=== PATIENT | male | born 1940 | race Caucasian/White ===

== ENCOUNTER → 2016-10-20 | Outpatient (CLI) | payer BC ==
[~2016-10-20] MED LIST: ASPEC81 PO; ASPI81TA28 PO; CLOP1TAB15 PO; COEN200T PO; CRS/10 PO; ISOS30TA3 PO; LPT40 PO; MULT-513 PO; OMEG10007 PO; PLV75 PO
[2016-10-20 14:26] LABS: ESTIMATED AVERAGE GLUCOSE 126 mg/dl; HA1C FLAG Normal (Normal)
[2016-10-20 14:32] LABS: ALT/SGPT 35 U/L (12-78); AST/SGOT 30 U/L (15-37); BLOOD UREA NITROGEN 37 mg/dl (7-18); BUN/CREATININE RATIO 33.4 (10-20); CARBON DIOXIDE 25 mmol/L (21-32); CHLORIDE 107 mmol/L (98-107); CHOLESTEROL 220 mg/dl (0-200); GLUCOSE 83 mg/dl (70-99); POTASSIUM 3.8 mmol/L (3.5-5.1); SODIUM 142 mmol/L (136-145); TRIGLYCERIDES 103 mg/dl (0-150); VERY LOW DENSITY LIPOPROT CALC 21 mg/dl
[2016-10-20 14:37] LABS: ALB/GLOB RATIO 1.3 (0.9-2); ALKALINE PHOSPHATASE 63 U/L (45-117); CHOLESTEROL/HDL RATIO 3.3; HDL CHOLESTEROL 66 mg/dl; LDL CHOLESTEROL CALCULATED 133 mg/dl; PROSTATE SPECIFIC ANTIGEN < 0.010 ng/ml (0.000-4.000)
== END | disposition home or self-care (01) ==
LOC: C.LABBC 09:46
PROVIDERS: ATTEND Internal Medicine
DX: Z00.00 Encounter for general adult medical examination without abnormal findings (principal); E78.5 Hyperlipidemia, unspecified; I25.10 Atherosclerotic heart disease of native coronary artery without angina pectoris; R94.5 Abnormal results of liver function studies; Z85.46 Personal history of malignant neoplasm of prostate; R73.09 Other abnormal glucose

== ENCOUNTER → 2016-12-07 | Outpatient (CLI) | payer BC ==
[2016-12-07 13:18] LABS: ALT/SGPT 33 U/L (12-78); AST/SGOT 28 U/L (15-37)
== END | disposition home or self-care (01) ==
LOC: C.LABBC 11:43
PROVIDERS: ATTEND Internal Medicine Cardiovascular Disease
DX: R94.5 Abnormal results of liver function studies (principal)

== ENCOUNTER → 2017-02-15 | Day surgery (SDC) | payer BC ==
[2017-01-13 13:19] VITALS: Ht 175.3 cm; Wt 75.9 kg
[~2017-02-15] VITALS: Ht 175.3 cm; Wt 75.9 kg
[~2017-02-15] MED LIST changes: -ASPEC81 PO; -ISOS30TA3 PO; +LIDOCAINE HCL 2% 2 ML VIAL (20MG/ML) ONE; -LPT40 PO; +MIDAZOLAM HCL 1 MG/ML 2ML VIAL ONE; +ONDANSETRON INJ 2 MG/ML 2 ML VIAL ONE; -PLV75 PO; +PROPOFOL IV EMULSION 10 MG/ML 20 ML VIAL IV ONE; +SODIUM CHLORIDE 0.9% 500ML 500 ML IV ONE
[2017-02-15 09:38] VITALS: TEMP 36.4
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
--- NOTE | 2017-02-15 10:28 | Discharge Instructions ---
Endoscopy Patient Instructions Date / Procedure(s) Performed February 15, 2017. Colonoscopy Allergy Information Coded Allergies: No Known Allergies (Verified , 02/15/17) Discharge Date / Findings February 15, 2017. Colon polyp Diverticulosis Internal hemorrhoids Medication Instructions Stopped Medication(s): PLAVIX LAST WEEK 02/08/17 ASPIRIN 02/13/17 OK to resume all medications today as prescribed Reported Home Medications Medications Dose Route/Sig Max Daily Dose Days Date Category Aspirin Ec (Aspirin) 81 Mg Tab 81 Mg PO NOON 01/13/17 Reported Coenzyme Q10 (Coenzyme Q10 (Ubidecarenone)) 200 Mg Tab 1 Tab PO NOON 01/13/17 Reported Crestor (Rosuvastatin Calcium) 10 Mg Tab 10 Mg PO HS 01/13/17 Reported Plavix (Clopidogrel Bisulfate) 75 Mg Tab 75 Mg PO NOON 01/13/17 Reported Mvi With Minerals (Multivitamins/Minerals) Tab 1 Tab PO NOON 03/01/15 Reported [place]-3 (Fish Oil) 1 Ea Cap 1 Cap PO NOON 03/01/15 Reported Provider Instructions Activity Restrictions - No exercising or heavy lifting for 24 hours. - Do not drink alcohol the day of the procedure. - Do not drive a car or operate machinery until the day after the procedure. - Do not make any important decisions or sign important papers in 24 hours after the procedure. Following Day: - Return to full activity which may include returning to work/school. Diet Start your diet with liquids and light foods (jello, soup, juice, toast). Then eat your usual diet if not nauseated. Treatment For Common After Affects For mild abdominal pain, bloating, or excessive gas: - Rest - Eat lightly - Lie on right side Follow-Up Information Follow-up with DR. BARBOZA as scheduled Anesthesia Information What You Should Know You have had a procedure that required some medicine to reduce anxiety and discomfort. This treatment is called moderate sedation. After receiving the treatment, you may be sleepy, but you will be able to breathe on your own. The effects of the treatment may last for several hours. Follow these instructions along with Activity/Diet recommendations noted above: * Do NOT do anything where dizziness or clumsiness would be dangerous. * Rest quietly at home today, then you can be up and about tomorrow. * Have a responsible person stay with you the rest of today. * You may have had an I.V. today. If so, you may take the dressing off later today. Recommendations Call your doctor if: * Trouble breathing * Continuous vomiting for more than 24 hours * Temperature above 101 degrees * Severe abdominal pain or bloating * Pain not relieved by pain medicine ordered * There is increased drainage or redness from any incision * A large amount of rectal bleeding greater than 2-3 tablespoons. (If you had a polyp/s removed or have hemorrhoids, a small amount of blood - from the rectum is to be expected.) * You have any unanswered questions or concerns. IN THE EVENT OF A SERIOUS EMERGENCY, GO TO THE NEAREST EMERGENCY ROOM Your discharge instructions were prepared by provider Sai Solitario. Patient Instructions Signature Page Kirk Magana Patient (or Guardian) Signature/Date: I have read and understand the instructions given to me by my caregivers. Caregiver/RN/Doctor Signature/Date: The above-named patient and/or guardian has received patient instructions on this date. + Original Patient Signature Page (only) stays with chart. Please make copy for patient.
--- NOTE | 2017-02-15 10:34 | GI REPORT ---
Procedure Date: 02/15/2017 9:49 AM Procedure: Colonoscopy Indications: High risk colon cancer surveillance: Personal history of colonic polyps Medicines: Monitored Anesthesia Care Complications: No immediate complications. Estimated Blood Loss: Estimated blood loss: none. Procedure: Pre-Anesthesia Assessment: - Prior to the procedure, a History and Physical was performed, and patient medications and allergies were reviewed. The patient's tolerance of previous anesthesia was also reviewed. The risks and benefits of the procedure and the sedation options and risks were discussed with the patient. All questions were answered, and informed consent was obtained. Prior Anticoagulants: The patient last took aspirin 2 days and Plavix (clopidogrel) 7 days prior to the procedure. ASA Grade Assessment: III - A patient with severe systemic disease. After reviewing the risks and benefits, the patient was deemed in satisfactory condition to undergo the procedure. After I obtained informed consent, the scope was passed under direct vision. Throughout the procedure, the patient's blood pressure, pulse, and oxygen saturations were monitored continuously. The scope was introduced through the anus and advanced to the terminal ileum. The colonoscopy was performed without difficulty. The patient tolerated the procedure well. The quality of the bowel preparation was good. The terminal ileum, ileocecal valve, appendiceal orifice, and rectum were photographed. Findings: A 4 mm polyp was found in the ascending colon. The polyp was sessile. The polyp was removed with a hot snare. Resection was complete, but the polyp tissue was not retrieved. Multiple small-mouthed diverticula were found in the sigmoid colon. Non-bleeding internal hemorrhoids were found during retroflexion. The hemorrhoids were small. Impression: - One 4 mm polyp in the ascending colon, removed with a hot snare. Complete resection. Polyp tissue not retrieved. - Diverticulosis in the sigmoid colon. - Non-bleeding internal hemorrhoids. Recommendation: - Resume previous diet. - Continue present medications. - No repeat colonoscopy due to age. - Return to primary care physician as previously scheduled. Sai Solitario DO 02/15/2017 10:33:25 AM This report has been signed electronically. Note Initiated On: 02/15/2017 9:49 AM I attest to the content of the Intraoperative Record and orders documented therein, exceptions below
--- NOTE | 2017-02-15 10:43 | Anesthesiology Progress Note ---
Anesthesia Post Op Note Date & Time February 15, 2017 at 10:42 Vital Signs Pain Intensity: 0 Vital Signs Past 12 Hours Date Time Temp Pulse Resp B/P Pulse Ox O2 Delivery O2 Flow Rate FiO2 02/15/17 10:32 56 18 97/48 95 Room Air 02/15/17 09:38 36.4 64 18 126/68 97 Room Air Notes Mental Status: alert / awake / arousable, participated in evaluation Pt Amnestic to Procedure: Yes Nausea / Vomiting: adequately controlled Pain: adequately controlled Airway Patency, RR, SpO2: stable & adequate BP & HR: stable & adequate Hydration State: stable & adequate Anesthetic Complications: no major complications apparent
[2017-02-15 11:02] VITALS: BP 104/63; PULSE 56; O2SAT 97
== END | disposition home or self-care (01) ==
LOC: C.GI 09:21
PROVIDERS: ATTEND Internal Medicine
DX: Z12.11 Encounter for screening for malignant neoplasm of colon (principal); Z86.010 Personal history of colon polyps; D12.2 Benign neoplasm of ascending colon; K64.8 Other hemorrhoids; K57.30 Diverticulosis of large intestine without perforation or abscess without bleeding; I25.2 Old myocardial infarction; I10 Essential (primary) hypertension; Z68.24 Body mass index [BMI] 24.0-24.9, adult; Z90.89 Acquired absence of other organs; I48.91 Unspecified atrial fibrillation; Z87.891 Personal history of nicotine dependence; Z79.02 Long term (current) use of antithrombotics/antiplatelets; Z79.899 Other long term (current) drug therapy

== ENCOUNTER → 2017-04-20 | Outpatient (CLI) | payer BC ==
[~2017-04-20] MED LIST changes: -LIDOCAINE HCL 2% 2 ML VIAL (20MG/ML) ONE; -MIDAZOLAM HCL 1 MG/ML 2ML VIAL ONE; -ONDANSETRON INJ 2 MG/ML 2 ML VIAL ONE; -PROPOFOL IV EMULSION 10 MG/ML 20 ML VIAL IV ONE; -SODIUM CHLORIDE 0.9% 500ML 500 ML IV ONE
[2017-04-20 11:15] LABS: ALT/SGPT 31 U/L (12-78); AST/SGOT 27 U/L (15-37); BLOOD UREA NITROGEN 33 mg/dl (7-18); BUN/CREATININE RATIO 30.2 (10-20); CALCIUM 8.7 mg/dl (8.5-10.1); CARBON DIOXIDE 26 mmol/L (21-32); CHLORIDE 110 mmol/L (98-107); CHOLESTEROL 146 mg/dl (0-200); GLUCOSE 90 mg/dl (70-99); POTASSIUM 4.3 mmol/L (3.5-5.1); SODIUM 139 mmol/L (136-145); TRIGLYCERIDES 75 mg/dl (0-150); VERY LOW DENSITY LIPOPROT CALC 15 mg/dl
[2017-04-20 11:18] LABS: CHOLESTEROL/HDL RATIO 2.4; HDL CHOLESTEROL 61 mg/dl; LDL CHOLESTEROL CALCULATED 70 mg/dl
[2017-04-20 11:21] LABS: ESTIMATED AVERAGE GLUCOSE 131 mg/dl; HA1C FLAG Normal (Normal)
== END | disposition home or self-care (01) ==
LOC: C.LABBC 09:10
PROVIDERS: ATTEND Internal Medicine
DX: E78.5 Hyperlipidemia, unspecified (principal); R94.5 Abnormal results of liver function studies; R73.03 Prediabetes

== ENCOUNTER 2017-10-27 18:41 | Emergency (ER) | payer BC ==
[~2017-10-27] VITALS: Ht 175.3 cm; Wt 78.9 kg
[2017-10-27 19:05] VITALS: TEMP 36.7; Ht 175.3 cm; Wt 78.9 kg
[2017-10-27] MEDS ORDERED: OXYMETAZOLINE HCL 0.05% NA SPR 15 ML BTL ONE (19:35)
--- NOTE | 2017-10-27 20:15 | EMERGENCY ROOM VISIT NOTE ---
ED Visit Note First contact with patient: 19:11 I have seen and examined this patient with Sharif Houser and generally agree with the treatment plan as discussed. Problem List Medical Problems: (1) Hx of left foot surgery Status: Resolved (2) Prostate cancer Status: Chronic Current/Historical Medications Scheduled Aspirin (Aspirin Ec), 81 MG PO NOON Clopidogrel (Plavix), 75 MG PO NOON Coenzyme Q10 (Ubidecarenone) (Coenzyme Q10), 200 MG PO NOON Fish Oil ([place]-3), 1 CAP PO NOON Multivitamins/Minerals (Mvi With Minerals), 1 TAB PO NOON Rosuvastatin Calcium (Crestor), 10 MG PO HS Allergies Coded Allergies: No Known Allergies (Verified , 10/27/17) Vital Signs Date Time Temp Pulse Resp B/P (MAP) Pulse Ox O2 Delivery O2 Flow Rate FiO2 10/27/17 19:05 36.7 71 18 115/67 97 Room Air Laboratory Results Test 10/27/17 19:23 Bedside Prothrombin Time INR 1.1 (0.9-1.1) Medications Administered Medications (Trade) Dose Ordered Sig/Lee Route Start Time Stop Time Status Last Admin Dose Admin Oxymetazoline HCl (Afrin 0.05% Nasal [place]) 75 sprays STK-MED ONCE .ROUTE 10/27/17 19:35 10/27/17 19:36 DC 10/27/17 19:38 75 SPRAYS Departure Information Referrals Pro,Darrel Uriostegui M.D. (PCP) Patient Instructions [facility]
[2017-10-27] MEDS ORDERED: AMOX875T3 PO (20:19)
[2017-10-27] MEDS ORDERED: AMOXICIL/CLAVU 875MG HOME PACK PO ONE (20:30)
[2017-10-27 20:55] VITALS: BP 111/79; PULSE 61; O2SAT 95
--- NOTE | 2017-10-28 21:04 | EMERGENCY ROOM VISIT NOTE ---
ED Visit Note First contact with patient: 19:11 Chief Complaint: Nose bleeding. History of Present Illness: Mr. Magana is a 77-year-old white male who ambulates into the ED accompanied by his complaining of bleeding from the left nostril. Historically patient reports he is currently on Plavix for the last 4-5 years and has had no complications of bleeding. Patient reports approximately 12:00 today he reports he was picking his nose and it started to bleed. He reports he had a direct pressure and within 10-15 minutes the bleeding stopped. Then at approximately 2:30 PM, approximately 5 hours before he arrived in the ED, he reports he was blowing his nose and lunch and the bleeding started from the left nostril again. Since that time he reports the bleeding has been steady and constant. He has not identified any aggravating or alleviating factors related to the bleeding. He reports he has tried compression and packing the nostril with tissue paper but has been unsuccessful. He denies facial pain, sinus pressure, recent upper respiratory tract symptoms, changes in medication, visual changes, other abnormal or ongoing bleeding. Review of Systems: As noted above in history of present illness. Past Medical History: Atrial fibrillation, dyslipidemia, coronary artery disease , congestive heart failure, myocardial infarction, prostrate cancer, status post angioplasty with stent placement. Current Medications: Plavix, aspirin, co-enzyme Q10, Crestor, omega-3 fatty acid , multivitamins. Allergies to Medications: Patient denies. Social History: Patient is currently retired; he feels safe in his home environment; he denies tobacco use and admits to alcohol use. Physical Examination: Vital Signs: Date Time Temp Pulse Resp B/P (MAP) Pulse Ox O2 Delivery O2 Flow Rate FiO2 10/27/17 20:55 61 18 111/79 95 10/27/17 19:05 36.7 71 18 115/67 97 Room Air GENERAL: 77-year-old male in no acute distress, nontoxic-appearing, afebrile and hemodynamically stable. NEUROLOGICAL: Awake, alert and oriented to person, place and time. Answering questions appropriately and following commands. Normal gait. Good hand eye coordination. SKIN: Warm, dry and pink. No soft tissue eruptions or trauma noted. HEENT: Atraumatic and normocephalic. PERRLA. Sclera white and conjunctiva pink. Nose: No tenderness, bony deformity or swelling. Active bleeding from the left nostril; site was not able to be identified. Bleeding from the right nostril although there is a small amount of blood in the nasal vault. Pharynx is nonerythematous or edematous. Small amount of blood in the posterior pharyngeal area. I do not see any active bleeding. Speech normal. No lymphadenopathy. ED Course: Patient is assessed as noted above. Patient's medication list was reviewed. Point of care PT/INR PT 13.0 seconds, INR 1.1. Initially patient's nose was clamped for approximately 15-20 minutes on reevaluation there was no active bleeding but when he blew his nose the bleeding returned. 2 squirts of Afrin were placed in the left nostril and the nostrils were read clamped. After 15-20 minutes he was reassessed and no active bleeding was found but when he blew his nose bleeding returned. A balloon-type Rhino Rocket was placed in the left nostril and inflated to 4 mL of air. He was reassessed multiple times and bleeding was controlled. Patient's case was reviewed with Dr. Cortes; independently assessed the patient we agreed on diagnostic approach, treatment, disposition and plan. Patient and are educated about today's findings and instructed on his treatment plan; they verbalized understanding and agreement with this plan. Clinical Impression: Left-sided epistaxis. Disposition: Patient discharged home in stable condition accompanied by his ; prior to departure he was reassessed and subjectively reported he was feeling better and remained pain and symptom-free. Plan: Continue your current medications as prescribed. Use 650 mg of acetaminophen every 6 hours as needed for pain; avoid ibuprofen and Aleve. Use 875 mg of amoxicillin 3 times a day for 5 days for antibiotic coverage. Follow-up with your family physician on Wednesday for recheck and packing removal and also possible referral to ENT specialist. Return to the ED for return of bleeding, fevers, uncontrolled pain or any new/ concerning symptoms. If after the packing is removed you have return of bleeding at any time put the nasal clamp on your nose for 15 minutes. Removed the clamp and blow your nose. If you have return of bleeding put 2 squirts of Afrin up the involved nostril and re-clamp for 15 minutes. After 15 minutes if you continue to have bleeding then come to the emergency department for further evaluation.
== END 2017-10-27 20:51 | disposition home or self-care (01) ==
LOC: C.EDB 18:43 → C.EDD 20:51
DX: R04.0 Epistaxis (principal); Z79.02 Long term (current) use of antithrombotics/antiplatelets; Z79.899 Other long term (current) drug therapy; I25.2 Old myocardial infarction; I48.91 Unspecified atrial fibrillation

== ENCOUNTER → 2017-11-04 | Outpatient (CLI) | payer BC ==
[2017-11-04 13:56] LABS: HEMOGLOBIN A1C 6.3 % (4.5-5.6)
[2017-11-04 14:03] LABS: ALT/SGPT 27 U/L (12-78); AST/SGOT 26 U/L (15-37); BLOOD UREA NITROGEN 29 mg/dl (7-18); CALCIUM 8.6 mg/dl (8.5-10.1); CARBON DIOXIDE 23 mmol/L (21-32); CHOLESTEROL 136 mg/dl (0-200); CREATININE 1.07 mg/dl (0.60-1.40); GLUCOSE 95 mg/dl (70-99); POTASSIUM 4.1 mmol/L (3.5-5.1); SODIUM 138 mmol/L (136-145)
[2017-11-04 14:08] LABS: LDL CHOLESTEROL CALCULATED 64 mg/dl
== END | disposition home or self-care (01) ==
LOC: C.LABBC 09:43
PROVIDERS: ATTEND Internal Medicine
DX: I25.10 Atherosclerotic heart disease of native coronary artery without angina pectoris (principal); I10 Essential (primary) hypertension; R73.03 Prediabetes; Z85.46 Personal history of malignant neoplasm of prostate

== ENCOUNTER → 2017-12-28 | Day surgery (SDC) | payer BC ==
[2017-12-01 13:09] VITALS: Ht 174 cm; Wt 75.9 kg
[~2017-12-28] VITALS: Ht 174 cm; Wt 75.9 kg
[~2017-12-28] MED LIST changes: +500ML BSS 0.3ML EPI 1:1000PF IRRIG ONE; +ACETAMINOPHEN 325 MG TAB PO PRN; +AMVISC PLUS 0.8ML SYRINGE INT OCU ONE; +ATROPINE SULFATE 0.1 MG/ML 5ML SYR IV PRN; +BSS FLUSH ONE; +EpHEDrine SULFATE INJ 50 MG/ML AMP IV PRN; +EpINEphrine INJ 1MG/ML AMP 1 MG/ML AMP ONE; +FENTANYL CITRATE INJ 50 MCG/1 ML 2 ML VIAL IV PRN; +GATIFLOXACIN OP SOLN PER DROP CHARGE OPL SCH; +LACTATED RINGER'S 1000ML 500 ML IV SCH; +LIDOCAINE 3.5% OPH GEL PER APPLICATION CHARGE ONE; +LIDOCAINE HCL 1% MPF 2 ML VIAL ONE; +MIDAZOLAM HCL 1 MG/ML 2ML VIAL ONE; +OCUCOAT 1 ML SOLN IO ONE; -OMEG10007 PO; +ONDANSETRON INJ 2 MG/ML 2 ML VIAL IV PRN; +POVIDONE-IODINE OP SOLN 30 ML BTL ONE; +PROPARACAINE 0.5% OP SOLN PER DROP CHARGE OPL SCH; +TOBRAMYCIN/DEXAMETHASONE OPH OINT PER APPLN CHARGE ONE
[2017-12-28] MEDS: PHENYLEPHRINE HCL 2.5% OP SOLN PER DROP CHARGE OPL SCH ×2 (09:30→09:35)
[2017-12-28] MEDS: TROPICAMIDE 1% OP SOLN PER DROP CHARGE OPL SCH ×2 (09:31→09:36)
[2017-12-28] MEDS: CYCLOPENTOLATE HCL 1% OP SOLN PER DROP CHARGE OPL SCH ×2 (09:32→09:37)
[2017-12-28] MEDS: KETOROLAC 0.5% OP SOLN PER DROP CHARGE OPL SCH ×2 (09:33→09:38)
[2017-12-28] MEDS: GATIFLOXACIN OP SOLN PER DROP CHARGE OPL SCH ×2 (09:34→09:44)
--- NOTE | 2017-12-28 09:43 | History & Physical Bridge - SC ---
H&P Re-Evaluation Bridge Note: I have examined the patient, reviewed the History & Physical and in the interval since the performance of the History & Physical I have noted the following changes of clinical significance: No changes noted
--- NOTE | 2017-12-28 10:35 | [facility] Operative Report ---
Operative Report Date of Service Dec 28, 2017. Operative Report 1. PREOPERATIVE DIAGNOSIS: Cataract of the left eye. 2. POSTOPERATIVE DIAGNOSIS: Same. 3. PROCEDURE: Phacoemulsification with intraocular lens implantation of the left eye. SURGEON: Dr. Eduardo Conrad. ANESTHESIA: Topical Lidocaine gel, 1% Non- Preserved intracameral Lidocaine, and monitored intravenous sedation. INDICATIONS FOR THE PROCEDURE: The patient is a 77 - year-old male with a history of cataract of the left eye causing significant visual impairment. The details of the proposed procedure were explained to the patient who asked appropriate questions and following discussion of all risks, benefits and alternatives agreed to have the procedure done. 4. OPERATION AND FINDINGS: DESCRIPTION OF PROCEDURE: After informed consent was obtained, the patient was brought to the Operating Room at the [facility]. The patient was placed in a supine position and then the left eye was prepped and draped in the usual sterile fashion for intraocular surgery. A drop of topical Lidocaine gel was placed in the operative eye. A wire lid speculum was then placed in the fornices. A corneal paracentesis was then created temporally. The Non-Preserved Lidocaine was then instilled into the anterior chamber. The anterior chamber was then pressurized with viscoelastic. A 2.0 mm clear corneal incision was then created temporally. A cystotome was inserted into the anterior chamber and used to create a tear in the anterior lens capsule. This capsular tear was then used to create a small flap and the flap was dragged in a counterclockwise direction in order to create a continuous curvilinear capsulorrhexis. Hydrodissection was accomplished with balanced salt solution. Phacoemulsification of the lens nucleus was then performed in a standard [id number] technique. The phaco time was 30 seconds with an average power of 17 %. The remaining cortical material was removed using irrigation aspiration. The capsular bag was then filled with viscoelastic. A [employer]ch [employer] Lomb MI60L +18.5 diopters lens was then loaded into the injector and injected into the capsular bag. The remaining viscoelastic was removed with the irrigation aspiration handpiece. The wound was hydrated and then checked and found to be watertight. The intraocular pressure was checked and found to be adequate. The wire lid speculum was removed and the patient's face was cleaned and dried. TobraDex ointment was placed in the inferior fornix. The patient was discharged to the Recovery Room having tolerated the procedure well. There were no complications. The patient will be seen tomorrow in the office for follow-up. I attest to the content of the Intraoperative Record and any orders documented therein. Any exceptions are noted below.
--- NOTE | 2017-12-28 10:35 | Discharge Instructions-SurgCtr ---
Discharge Instructions Date of Service Dec 28, 2017. Visit Reason for Visit: Cataract Left Eye Discharge Discharge Diagnosis / Problem: cataract Discharge Goals Goal(s): Improve function Activity Recommendations Activity Limitations: per Instructions/Follow-up section Anesthesia . Post Anesthesia Instructions: If you have had General Anesthesia or IV Sedation: * Do not drive today. * Resume driving when surgeon permits. * Do not make important decisions or sign legal documents today. * Call surgeon for: 1. Temperature elevations greater than 101 degrees F. 2. Uncontrollable pain. 3. Excessive bleeding. 4. Persistent nausea and vomiting. 5. Medication intolerance (nausea, vomiting or rash). * For nausea and vomiting use only clear liquids such as: tea, soda, bouillon until nausea subsides, then gradually increase diet as tolerated. * If you have any concerns or questions, call your surgeon's office. If physician is unavailable and it is an emergency, call 911 or go to the nearest emergency room. . Diet Recommendations Home Diet: resume previous diet Procedures Procedures Performed: Left Eye Cataract Phacoemulsification With Intraocular Lens Implant Pending Studies Studies pending at discharge: no Medical Emergencies . Who to Call and When: Medical Emergencies: If at any time you feel your situation is an emergency, please call 911 immediately. . Non-Emergent Contact Non-Emergency issues call your: Fence Setter . . "Provider Documentation" section prepared by Eduardo Conrad. .
[2017-12-28 10:37] VITALS: TEMP 36.4
--- NOTE | 2017-12-28 10:57 | Anesthesia Progress Nt - [facility] ---
Anesthesia Post Op Note Date & Time Dec 28, 2017 at 10:57 Vital Signs Pain Intensity: 0 Vital Signs Past 12 Hours Date Time Temp Pulse Resp B/P (MAP) Pulse Ox O2 Delivery O2 Flow Rate FiO2 12/28/17 10:37 36.4 49 16 131/65 (87) 96 Room Air 12/28/17 09:20 36.8 54 20 134/65 (88) 93 Room Air Notes Mental Status: alert / awake / arousable, participated in evaluation Pt Amnestic to Procedure: Yes Nausea / Vomiting: adequately controlled Pain: adequately controlled Airway Patency, RR, SpO2: stable & adequate BP & HR: stable & adequate Hydration State: stable & adequate Anesthetic Complications: no major complications apparent
[2017-12-28 11:07] VITALS: BP 105/62; PULSE 50; O2SAT 96
== END | disposition home or self-care (01) ==
LOC: X.SURG 08:30
PROVIDERS: ATTEND Ophthalmology
DX: H26.9 Unspecified cataract (principal); I25.10 Atherosclerotic heart disease of native coronary artery without angina pectoris; I10 Essential (primary) hypertension; E78.5 Hyperlipidemia, unspecified; I48.0 Paroxysmal atrial fibrillation; E78.00 Pure hypercholesterolemia, unspecified; M15.9 Polyosteoarthritis, unspecified; R73.03 Prediabetes; I25.2 Old myocardial infarction; Z85.46 Personal history of malignant neoplasm of prostate; Z98.61 Coronary angioplasty status; Z90.79 Acquired absence of other genital organ(s); Z87.891 Personal history of nicotine dependence; Z79.82 Long term (current) use of aspirin; Z81.1 Family history of alcohol abuse and dependence

== ENCOUNTER → 2018-01-11 | Day surgery (SDC) | payer BC ==
[2018-01-06 10:21] VITALS: Ht 174 cm; Wt 75.9 kg
[~2018-01-11] VITALS: Ht 174 cm; Wt 75.9 kg
[~2018-01-11] MED LIST changes: -FENTANYL CITRATE INJ 50 MCG/1 ML 2 ML VIAL IV PRN; -GATIFLOXACIN OP SOLN PER DROP CHARGE OPL SCH; -OCUCOAT 1 ML SOLN IO ONE; -ONDANSETRON INJ 2 MG/ML 2 ML VIAL IV PRN; -PROPARACAINE 0.5% OP SOLN PER DROP CHARGE OPL SCH; +PROPARACAINE 0.5% OP SOLN PER DROP CHARGE OPR SCH
[2018-01-11] MEDS: PHENYLEPHRINE HCL 2.5% OP SOLN PER DROP CHARGE OPR SCH ×2 (07:48→07:53)
[2018-01-11] MEDS: TROPICAMIDE 1% OP SOLN PER DROP CHARGE OPR SCH ×2 (07:49→07:54)
[2018-01-11] MEDS: CYCLOPENTOLATE HCL 1% OP SOLN PER DROP CHARGE OPR SCH ×2 (07:50→07:55)
[2018-01-11] MEDS: KETOROLAC 0.5% OP SOLN PER DROP CHARGE OPR SCH ×2 (07:51→07:56)
[2018-01-11] MEDS: GATIFLOXACIN OP SOLN PER DROP CHARGE OPR SCH ×2 (07:52→08:02)
--- NOTE | 2018-01-11 08:10 | History & Physical Bridge - [place] ---
H&P Re-Evaluation Bridge Note: I have examined the patient, reviewed the History & Physical and in the interval since the performance of the History & Physical I have noted the following changes of clinical significance: Diagnosis: Right Cataract Procedure: Right Cataract Removal with Lens Implant No changes noted
--- NOTE | 2018-01-11 09:04 | Discharge Instructions-SurgCtr ---
Discharge Instructions Date of Service Jan 11, 2018. Visit Reason for Visit: Cataract Right Eye Discharge Discharge Diagnosis / Problem: cataract Discharge Goals Goal(s): Improve function Activity Recommendations Activity Limitations: per Instructions/Follow-up section Anesthesia . Post Anesthesia Instructions: If you have had General Anesthesia or IV Sedation: * Do not drive today. * Resume driving when surgeon permits. * Do not make important decisions or sign legal documents today. * Call surgeon for: 1. Temperature elevations greater than 101 degrees F. 2. Uncontrollable pain. 3. Excessive bleeding. 4. Persistent nausea and vomiting. 5. Medication intolerance (nausea, vomiting or rash). * For nausea and vomiting use only clear liquids such as: tea, soda, bouillon until nausea subsides, then gradually increase diet as tolerated. * If you have any concerns or questions, call your surgeon's office. If physician is unavailable and it is an emergency, call 911 or go to the nearest emergency room. . Diet Recommendations Home Diet: resume previous diet Procedures Procedures Performed: Right Cataract Phacoemulsification With Intraocular Lens Implant Pending Studies Studies pending at discharge: no Medical Emergencies . Who to Call and When: Medical Emergencies: If at any time you feel your situation is an emergency, please call 911 immediately. . Non-Emergent Contact Non-Emergency issues call your: Marketing Trainee . . "Provider Documentation" section prepared by Eduardo Conrad. .
--- NOTE | 2018-01-11 09:04 | [facility] Operative Report ---
Operative Report Date of Service Jan 11, 2018. Operative Report 1. PREOPERATIVE DIAGNOSIS: Cataract of the right eye. 2. POSTOPERATIVE DIAGNOSIS: Same. 3. PROCEDURE: Phacoemulsification with intraocular lens implantation of the right eye. SURGEON: Dr. Eduardo Conrad. ANESTHESIA: Topical Lidocaine gel, 1% Non- Preserved intracameral Lidocaine, and monitored intravenous sedation. INDICATIONS FOR THE PROCEDURE: The patient is a 77 - year-old male with a history of cataract of the right eye causing significant visual impairment. The details of the proposed procedure were explained to the patient who asked appropriate questions and following discussion of all risks, benefits and alternatives agreed to have the procedure done. 4. OPERATION AND FINDINGS: DESCRIPTION OF PROCEDURE: After informed consent was obtained, the patient was brought to the Operating Room at the [facility]. The patient was placed in a supine position and then the right eye was prepped and draped in the usual sterile fashion for intraocular surgery. A drop of topical Lidocaine gel was placed in the operative eye. A wire lid speculum was then placed in the fornices. A corneal paracentesis was then created temporally. The Non-Preserved Lidocaine was then instilled into the anterior chamber. The anterior chamber was then pressurized with viscoelastic. A 2.0 mm clear corneal incision was then created temporally. A cystotome was inserted into the anterior chamber and used to create a tear in the anterior lens capsule. This capsular tear was then used to create a small flap and the flap was dragged in a counterclockwise direction in order to create a continuous curvilinear capsulorrhexis. Hydrodissection was accomplished with balanced salt solution. Phacoemulsification of the lens nucleus was then performed in a standard [id number] technique. The phaco time was 18 seconds with an average power of 13 %. The remaining cortical material was removed using irrigation aspiration. The capsular bag was then filled with viscoelastic. A [employer]ch [employer] Lomb MI60L +18.0 diopters lens was then loaded into the injector and injected into the capsular bag. The remaining viscoelastic was removed with the irrigation aspiration handpiece. The wound was hydrated and then checked and found to be watertight. The intraocular pressure was checked and found to be adequate. The wire lid speculum was removed and the patient's face was cleaned and dried. TobraDex ointment was placed in the inferior fornix. The patient was discharged to the Recovery Room having tolerated the procedure well. There were no complications. The patient will be seen tomorrow in the office for follow-up. I attest to the content of the Intraoperative Record and any orders documented therein. Any exceptions are noted below.
[2018-01-11 09:06] VITALS: TEMP 36.6
--- NOTE | 2018-01-11 09:15 | Anesthesia Progress Nt - [facility] ---
Anesthesia Post Op Note Date & Time Jan 11, 2018 at 09:15 Vital Signs Pain Intensity: 0 Vital Signs Past 12 Hours Date Time Temp Pulse Resp B/P (MAP) Pulse Ox O2 Delivery O2 Flow Rate FiO2 01/11/18 09:06 36.6 50 16 120/71 (87) 97 Room Air 01/11/18 07:37 36.3 54 18 143/77 (99) 96 Room Air Notes Mental Status: alert / awake / arousable, participated in evaluation Pt Amnestic to Procedure: Yes Nausea / Vomiting: adequately controlled Pain: adequately controlled Airway Patency, RR, SpO2: stable & adequate BP & HR: stable & adequate Hydration State: stable & adequate Anesthetic Complications: no major complications apparent
[2018-01-11 09:34] VITALS: BP 131/72; PULSE 54; O2SAT 96
== END | disposition home or self-care (01) ==
LOC: X.SURG 07:16
PROVIDERS: ATTEND Ophthalmology
DX: H26.9 Unspecified cataract (principal); I25.2 Old myocardial infarction; I25.10 Atherosclerotic heart disease of native coronary artery without angina pectoris; Z95.5 Presence of coronary angioplasty implant and graft; Z85.46 Personal history of malignant neoplasm of prostate; Z79.82 Long term (current) use of aspirin; Z87.891 Personal history of nicotine dependence

== ENCOUNTER → 2018-04-28 | Outpatient (CLI) | payer BC ==
[~2018-04-28] MED LIST changes: -500ML BSS 0.3ML EPI 1:1000PF IRRIG ONE; -ACETAMINOPHEN 325 MG TAB PO PRN; -AMVISC PLUS 0.8ML SYRINGE INT OCU ONE; -ATROPINE SULFATE 0.1 MG/ML 5ML SYR IV PRN; -BSS FLUSH ONE; -EpHEDrine SULFATE INJ 50 MG/ML AMP IV PRN; -EpINEphrine INJ 1MG/ML AMP 1 MG/ML AMP ONE; -LACTATED RINGER'S 1000ML 500 ML IV SCH; -LIDOCAINE 3.5% OPH GEL PER APPLICATION CHARGE ONE; -LIDOCAINE HCL 1% MPF 2 ML VIAL ONE; -MIDAZOLAM HCL 1 MG/ML 2ML VIAL ONE; -POVIDONE-IODINE OP SOLN 30 ML BTL ONE; -PROPARACAINE 0.5% OP SOLN PER DROP CHARGE OPR SCH; -TOBRAMYCIN/DEXAMETHASONE OPH OINT PER APPLN CHARGE ONE
[2018-04-28 13:28] LABS: HEMOGLOBIN A1C 6.3 % (4.5-5.6)
[2018-04-28 13:34] LABS: ALT/SGPT 26 U/L (12-78); AST/SGOT 28 U/L (15-37); BLOOD UREA NITROGEN 27 mg/dl (7-18); CALCIUM 8.6 mg/dl (8.5-10.1); CARBON DIOXIDE 23 mmol/L (21-32); CHOLESTEROL 139 mg/dl (0-200); CREATININE 1.15 mg/dl (0.60-1.40); GLUCOSE 88 mg/dl (70-99); LDL CHOLESTEROL CALCULATED 61 mg/dl; POTASSIUM 4.1 mmol/L (3.5-5.1); SODIUM 138 mmol/L (136-145)
== END | disposition home or self-care (01) ==
LOC: C.LABBC 10:53
PROVIDERS: ATTEND Internal Medicine
DX: I25.10 Atherosclerotic heart disease of native coronary artery without angina pectoris (principal); R73.03 Prediabetes; E78.5 Hyperlipidemia, unspecified

== ENCOUNTER 2021-01-17 15:34 | Inpatient (IN) ==
[2021-01-17] MEDS ORDERED: VANCOMYCIN CONSULT ACTIVE PRN (16:48)
[2021-01-17] MEDS ORDERED: VANCOMYCIN HCL 1,500 MG in SODIUM CHLORIDE 0.9% 500 ML IV ONE (16:48)
[2021-01-17] MEDS ORDERED: AMPICILLIN/SULBACTAM SOD 3,000 MG in 0.9 % SODIUM CHLORIDE 100 ML IV STA (16:48)
[2021-01-17 17:29] LABS: Basophils # (auto) 0.01 K/uL (0-0.2); Basophils % (auto) 0.1 %; Eosinophils # (auto) 0.01 K/uL (0-0.5); Eosinophils % (auto) 0.1 %; Hemoglobin 14.2 g/dL (14.0-18.0); Immature Granulocytes # (auto) 0.03 K/uL (0.00-0.02); Immature Granulocytes % (auto) 0.2 %; Lymphocytes % (auto) 9.3 %; Mean Corpuscular Hemoglobin 30.3 pg (25-34); Mean Corpuscular Hgb Conc 33.8 g/dL (32-36); Mean Corpuscular Volume 89.7 fL (80-100); Mean Platelet Volume 10.3 fL (7.4-10.4); Monocytes # (auto) 1.38 K/uL (0.11-0.59); Monocytes % (auto) 9.2 %; Neutrophils # (auto) 12.19 K/uL (1.4-6.5); Neutrophils % (auto) 81.1 %; Platelet Count 164 K/uL (130-400); RDW Coefficient of Variation 14.8 % (11.5-14.5); RDW Standard Deviation 48.8 fL (36.4-46.3); Red Blood Count 4.68 M/uL (4.7-6.1); White Blood Count 15.02 K/uL (4.8-10.8)
[2021-01-17] MEDS ORDERED: OPTIRAY 320 100ml IV ONE (17:38)
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
[2021-01-17 17:50] LABS: Albumin Level 3.2 gm/dl (3.4-5.0); BUN Creatinine Ratio 32.7 (10-20); Calcium 9.1 mg/dl (8.5-10.1); Creatinine Clr Calc Pharmacy 45.2 ml/min; Est GFR (African American) 61.2; Est GFR (Non-African American) 52.8; Potassium 4.3 mmol/L (3.5-5.1)
[2021-01-17 17:57] LABS: Albumin Globulin Ratio 0.8 (0.9-2); Bilirubin,Total 1.3 mg/dl (0.2-1); C Reactive Protein 21.4 mg/dl (0-0.29); Globulin 3.9 gm/dl (2.5-4.0); Total Protein 7.1 gm/dl (6.4-8.2)
[2021-01-17] MEDS ORDERED: SODIUM CHLORIDE 0.9% 500 ML IV ONE (18:21)
--- NOTE | 2021-01-17 18:43 | CT Scan Report ---
CT SCAN OF THE LEFT FEMUR WITH IV CONTRAST CLINICAL HISTORY: Left thigh edema and drainage. COMPARISON STUDY: CT scan of the left femur dated 08/11/2019. TECHNIQUE: Following the IV administration of 88 mL of Isovue 20, CT scan of the left femur is perfor med from the bony pelvis to the proximal tibia and fibula. Images are reviewed in the axial, sagittal , and coronal planes. IV contrast was administered without complication. A dose lowering technique wa s utilized adhering to the principles of ALARA. Note that interpretation is suboptimal without plain film correlate. CT DOSE: 327.07 mGy.cm FINDINGS: The skeletal structures are osteopenic. There is no evidence of left femoral fracture. Ther e is no bony erosion or periostitis. No lytic or blastic lesion is seen. The visualized left hemipelv is appears intact. Postoperative change is seen involving the pubic symphysis. Mild to moderate degen erative change is noted in the left hip. There is no significant joint effusion. There is a multiloculated, thick-walled, gas and fluid containing collection identified within the an terior aspect of the mid thigh. This measures approximately 12 x 5.5 x 15.5 cm in aggregate dimension . This closely approximates the dermal surface, and there is surrounding dermal thickening and subcut aneous soft tissue edema consistent with cellulitis. This may involve the sartorius and tensor fascia latae muscles. The left femoral artery appears intact and patent noting atherosclerotic calcificatio n and irregularity. There is no left inguinal adenopathy. The bladder is normal as visualized. The pr ostate gland is surgically absent. IMPRESSION: 1. No osseous abnormality is seen involving the left femur. 2. There is a large and multiloculated gas and fluid containing collection within the ventral aspect of the mid thigh as detailed above. This is typical in appearance for an abscess, and closely approxi mates dermal surface. 3. There is surrounding cellulitis. 4. The collection may involve the left sartorius and tensor fascia latae muscles. ACT 112: Negative or not required by law. Dictated: 01/17/2021 6:07 PM Transcribed: 01/17/2021 6:40 PM Corrie [id number] [email or web address] Electronically signed by: Deepak Carlos M.D. 01/17/2021 6:41 PM
[2021-01-17] MEDS ORDERED: SODIUM CHLORIDE 0.9% 1000ML 1,000 ML IV ONE (19:58)
[2021-01-17 19:59] LABS: Influenza A virus by PCR Negative (Neg); Influenza B virus by PCR Negative (Neg); RSV by PCR Negative (Neg); SARS CoV2 RNA(COVID-19) InHosp NEGATIVE (Negative)
--- NOTE | 2021-01-17 20:00 | Anesthesiology Consultation ---
Date of Service January 17, 2021 Assessment & Plan (1) Encounter for pre-operative examination: Chart Review Chart Review: Acceptable Risk for Surgery and Patient NOT seen in Pre Admission Testing Consults Requested none History Surgery Operation Date: 01/17/21 20:30 Proposed Procedures p Incision and Drainage Extremity(Left) - Isael Hammer MD Height/Weight Height: 5 ft 9 in Weight: 73.4 kg Allergies Allergy/AdvReac Type Severity Reaction Status Date / Time No Known Drug Allergies Allergy Verified 01/17/21 19:02 Medications Home Medications Medication Instructions Recorded Confirmed Last Taken aspirin 81 mg tablet,delayed 81 mg PO DAILY tab 05/31/19 01/17/21 01/17/21 release coenzyme Q10 200 mg capsule 200 mg PO DAILY cap 05/31/19 01/17/21 01/17/21 multivitamin 1 tab PO DAILY 05/31/19 01/17/21 01/17/21 tadalafil 20 mg tablet 20 mg PO DAILY PRN #18 tab 08/25/19 01/17/21 Unknown clopidogrel 75 mg tablet 75 mg PO DAILY #90 tab 03/11/20 01/17/21 01/17/21 rosuvastatin 10 mg PO HS 01/17/21 01/17/21 01/16/21 Active Medications Generic Name Dose Route Start Last Admin Trade Name Freq PRN Reason Stop Dose Admin Sodium Chloride 1,000 mls @ 999 mls/hr 01/17/21 19:58 01/17/21 20:10 Nss 1000ml IV 01/17/21 20:58 999 mls/hr .Q1H1M ONE Administration Past Medical History Medical History Bilateral tinnitus CAD (coronary artery disease) Diverticulosis Foot pain Generalized osteoarthritis of multiple sites Hearing decreased Hearing loss Hematoma of left thigh Hematoma of left thigh History of pelvic fracture History of pericarditis Hyperlipidemia Internal hemorrhoids Paroxysmal atrial fibrillation Pericardial tamponade Pre-diabetes Prostate cancer Sensorineural hearing loss (SNHL) of both ears SNHL (sensorineural hearing loss) Tinnitus Past Family History Family History Sister Breast cancer Father Alcoholism Cirrhosis Denies family history of Prostate cancer Myocardial infarction Colorectal cancer Past Surgical History Surgical History H/O cardiac catheterization H/O colonoscopy with polypectomy H/O prostatectomy History of heart artery stent History of pelvic surgery Hx of foot surgery left Hx of tonsillectomy Status post creation of pericardial window Social History Smoking Status: Never smoker Hx Alcohol Use: Yes Hx Substance Use: No Physical Exam Vital Signs Last Vital Signs Temp 36.9 C 01/17/21 16:08 Pulse 65 01/17/21 20:00 Resp 24 01/17/21 20:00 BP 108/55 L 01/17/21 20:00 Pulse Ox 94 01/17/21 20:00 Testing Laboratory Results 01/17/21 17:08 01/17/21 17:08 Electrocardiogram Date: 01/17/21 Findings: + NSR @ (63) 1st degree AV block with PACs, low voltage QRS
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
--- NOTE | 2021-01-17 20:23 | XRay Report ---
SINGLE VIEW CHEST CLINICAL HISTORY: Left thigh abscess. Emphysema. Preadmission testing. FINDINGS: An AP, portable, upright chest radiograph is compared to study dated 03/14/2015. Correlation is made with chest CT dated 03/01/2015. The heart is enlarged noting atherosclerotic calcification of the thoracic aorta. The pulmonary vasculature is noncongested. Emphysema and chronic interstitial th ickening is similar to previous. There is bibasilar scarring/atelectasis. No airspace consolidation o r large pleural effusion is identified. No pneumothorax is seen. The skeletal structures are osteopen ic. There are healed right-sided rib fractures. IMPRESSION: Cardiomegaly and emphysema with no acute cardiopulmonary abnormality. ACT 112: Negative or not required by law. Electronically signed by: Deepak Carlos M.D. 01/17/2021 8:21 PM
[2021-01-17] MEDS ORDERED: PROPOFOL IV EMULSION 10 MG/ML 20 ML VIAL IV ONE (20:44)
[2021-01-17] MEDS ORDERED: SUCCINYLCHOLINE CHLORIDE 20 MG/ML 10 ML VIAL IV ONE (20:44)
[2021-01-17] MEDS ORDERED: LIDOCAINE HCL 2% 2 ML VIAL/AMP(20MG/ML) INFIL ONE (20:44)
[2021-01-17] MEDS ORDERED: fentaNYL citrate 100 MCG/2 ML VIAL ONE ×2 (20:45→21:41)
[2021-01-17] MEDS ORDERED: ROCURONIUM BROMIDE 10 MG/ML 5 ML VIAL IV ONE ×2 (20:48→21:37)
[2021-01-17] MEDS ORDERED: ONDANSETRON INJ 2 MG/ML 2 ML VIAL ONE (20:48)
[2021-01-17] MEDS ORDERED: VANCOMYCIN HCL 1000MG/20ML VIAL ONE (20:54)
[2021-01-17] MEDS ORDERED: GENTAMICIN SULFATE 40 MG/ML 2 ML VIAL ONE (20:54)
[2021-01-17] MEDS ORDERED: TRANEXAMIC ACID / 0.7% NACL 1,000 MG/100 ML BAG IV ONE (20:57)
[2021-01-17] MEDS ORDERED: fentaNYL citrate 100 MCG/2 ML VIAL IV PRN (22:08)
[2021-01-17] MEDS ORDERED: ONDANSETRON INJ 2 MG/ML 2 ML VIAL IV PRN ×2 (22:08→23:12)
[2021-01-17] MEDS ORDERED: ATROPINE SULFATE 0.1 MG/ML 10ML SYR IV PRN (22:08)
[2021-01-17] MEDS ORDERED: ePHEDrine sulfate 50 MG/ML AMP IV PRN (22:08)
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
--- NOTE | 2021-01-17 23:08 | Operative Report ---
Post Operative Report Pre & Post Diagnosis Operation Date: 01/17/21 20:30 Pre-Op Diagnosis: INFECTION IN LEFT LEG Post-Op Diagnosis: INFECTION IN LEFT LEG I identified the patient and participated in the time-out.: Yes Procedure Operation Date: 01/17/21 20:30 Actual Procedures p Incision and Drainage Left Thigh Abscess(Left) - Isael Hammer MD Surgeon Dr Hammer [employer] Floor Walker Yahaira Barbour no resident or fellow available Estimated Blood Loss 50 Findings Consistent with Post-Op Diagnosis Specimens soft tissue and wound culture Complications none Indications See Dr Hammer note Description of Procedure See Dr Hammer note. I was credentialing assistant during entire case from prepping, draping, limb and instrument handling, wound packing/closure, dressings. I attest to the content of the Intraoperative Record and any orders documented therein. Any exceptions are noted below.
[2021-01-17] MEDS ORDERED: oxyCODONE HCL IR 5 MG TAB (IMMEDIATE RELEASE) PO PRN (23:12)
[2021-01-17] MEDS ORDERED: NALOXONE HCL 0.4 MG/1 ML VIAL/CARP IV PRN (23:12)
[2021-01-17] MEDS ORDERED: ALUMINUM/MAGNESIUM SUSP 30 ML UDC PO PRN (23:12)
[2021-01-17] MEDS ORDERED: bisacodyL 10 MG SUPP PR PRN (23:12)
[2021-01-17] MEDS ORDERED: MAGNESIUM HYDROXIDE SUSP 30 ML UDC PO PRN (23:12)
[2021-01-17] MEDS ORDERED: METOCLOPRAMIDE HCL INJ 5 MG/ML 2 ML VIAL IV PRN (23:12)
[2021-01-17] MEDS ORDERED: SODIUM CHLORIDE 0.9% 1000ML 1,000 ML IV SCH (23:15)
[2021-01-18] MEDS ORDERED: AMPICILLIN/SULBACTAM CONSULT ACTIVE PRN (00:41)
[2021-01-18] MEDS: AMPICILLIN/SULBACTAM SOD 3,000 MG in 0.9 % SODIUM CHLORIDE 100 ML IV SCH ×4 (01:35→17:40)
[2021-01-18 01:42] LABS: Hematocrit (blood only) 35.5 % (42-52); Hemoglobin 11.5 g/dL (14.0-18.0); Mean Corpuscular Hemoglobin 29.6 pg (25-34); Mean Corpuscular Hgb Conc 32.4 g/dL (32-36); Mean Corpuscular Volume 91.3 fL (80-100); Mean Platelet Volume 10.4 fL (7.4-10.4); Platelet Count 168 K/uL (130-400); RDW Coefficient of Variation 14.7 % (11.5-14.5); RDW Standard Deviation 48.9 fL (36.4-46.3); Red Blood Count 3.89 M/uL (4.7-6.1); White Blood Count 15.09 K/uL (4.8-10.8)
[2021-01-18] MEDS: ACETAMINOPHEN 500 MG TAB PO PRN ×2 (01:43→15:53)
[2021-01-18 02:01] LABS: BUN Creatinine Ratio 30.6 (10-20); Calcium 8.1 mg/dl (8.5-10.1); Creatinine Clr Calc Pharmacy 46.7 ml/min; Est GFR (African American) 63.6; Est GFR (Non-African American) 54.9; Potassium 4.6 mmol/L (3.5-5.1)
[2021-01-18] MEDS ORDERED: TRANEXAMIC ACID / 0.7% NACL 1,000 MG/100 ML BAG IV ONE (06:00)
[2021-01-18] MEDS: VANCOMYCIN HCL 750 MG in SODIUM CHLORIDE 0.9% 250 ML IV SCH ×2 (06:41→18:40)
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
[2021-01-18] MEDS ORDERED: NON-FORMULARY MEDICATION (Coenzyme Q10 200 mg capsule) PO SCH (09:00)
--- NOTE | 2021-01-18 09:08 | Hospitalist Consultation ---
Date of Consultation January 18, 2021 Assessment & Plan (1) Abscess of left thigh: Agree with current antibiotic selection with IV Unasyn and vancomycin. Anaerobic coverage not necessary for gram-positive cocci however many abscesses polymicrobial therefore will continue on IV Unasyn until culture sensitivities are back. (2) Cellulitis of left thigh: (3) Complex sleep apnea syndrome: Not on treatment for this. He is not on ASV. (4) CAD (coronary artery disease): Acute myocardial infarction with drug-eluting stent to proximal LAD in February 2015. Continue aspirin, clopidogrel, rosuvastatin. (5) Paroxysmal atrial fibrillation: Solitary episode in the setting of acute ME therefore not on anticoagulation. No known recurrence of his atrial fibrillation since this time. (6) DVT prophylaxis: Defer to primary orthopedic team however would start Lovenox when okay from a surgical point of view. History of Present Illness Reason for Consultation: Thigh infection Attending Physician: Isael Hammer MD History of Present Illness Kirk Salgado is an 80-year-old male who presented to the emergency room yesterday due to worsening left thigh pain and erythema over the course of a few days after it opened up and started draining. He has had a lump on his leg however for years (notably hematoma on femur CT in August 2019). Gram stain on surface culture showed few gram-positive cocci and moderate polys. He was diagnosed with a left thigh abscess and taken for incision and drainage yesterday by Dr Hammer. Blood cultures were taken at this time. Thick brown material and fluid drained out during the operation. Gram stain on operative cultures showed rare gram-positive cocci. He was started on Vancomycin and Unasyn. Dressing with blood coming through this morning. The patient has no acute concerns. No chest pain, shortness of breath, lightheadedness, significant pain. Allergies Allergy/AdvReac Type Severity Reaction Status Date / Time No Known Drug Allergies Allergy Verified 01/17/21 19:02 onion AdvReac Verified 01/18/21 10:56 Home Medications Medication Instructions Recorded Confirmed Type aspirin 81 mg tablet,delayed 81 mg PO DAILY tab 05/31/19 01/17/21 History release coenzyme Q10 200 mg capsule 200 mg PO DAILY cap 05/31/19 01/17/21 History multivitamin 1 tab PO DAILY 05/31/19 01/17/21 History tadalafil 20 mg tablet 20 mg PO DAILY PRN #18 tab 08/25/19 01/17/21 Rx clopidogrel 75 mg tablet 75 mg PO DAILY #90 tab 03/11/20 01/17/21 Rx rosuvastatin 10 mg PO HS 01/17/21 01/17/21 History Patient History Medical History Bilateral tinnitus CAD (coronary artery disease) Diverticulosis Foot pain Generalized osteoarthritis of multiple sites Hearing decreased Hearing loss Hematoma of left thigh Hematoma of left thigh History of pelvic fracture History of pericarditis Hyperlipidemia Internal hemorrhoids Paroxysmal atrial fibrillation Pericardial tamponade Pre-diabetes Prostate cancer Sensorineural hearing loss (SNHL) of both ears SNHL (sensorineural hearing loss) Tinnitus Surgical History H/O cardiac catheterization H/O colonoscopy with polypectomy H/O prostatectomy History of heart artery stent History of pelvic surgery Hx of foot surgery left Hx of tonsillectomy Status post creation of pericardial window Family History Sister Breast cancer Father Alcoholism Cirrhosis Denies family history of Prostate cancer Myocardial infarction Colorectal cancer Social History Smoking Status: Never smoker Second Hand Exposure: No; Do You Dip or Chew Tobacco: No; Hx Alcohol Use: Yes Alcohol type: hard liquor Hx Substance Use: No Preferred Language: Sami Communication Ability: Effective Visual Impairment: No Limitations Hearing Ability: Normal Med Aide Required: No Beliefs That Will Affect Care: None marital status: Current Living Situation: Spouse current occupational status: retired Other Information That Helps Us Care for You: No Feels Safe at Home: Yes Safety Concerns: Feels Safe At This Time Seatbelt Use: always Assistive Devices: None Review of Systems Review of Systems: All systems reviewed & are unremarkable except as noted in HPI & below Physical Exam Constitutional: well developed and well nourished; no acute distress Eyes: + anicteric sclerae; normal pupil size ENMT: external ear and nose normal, oropharynx normal Respiratory: normal respiratory effort, lungs clear to auscultation Cardiovascular: RRR, no murmur, no edema Gastrointestinal (Abdomen): normal bowel sounds, soft, nontender, no hepat osplenomegaly Musculoskeletal: NV intact distal to operation site. Dressing with soaked blood noted. Neurologic: moves all extremities and awake; not confused Psychiatric: A+Ox3, euthymic affect Results & Data Results & Data ([facility]) Vital Signs (Past 12 Hours) Vital Signs Temp Pulse Pulse Resp BP Pulse Ox 01/18/21 07:04 36.3 C L 66 16 105/42 L 95 01/18/21 03:24 36.4 C L 70 16 132/84 93 01/18/21 02:33 36.3 C L 72 16 110/56 L 95 01/18/21 01:44 36.5 C 65 20 117/62 97 01/18/21 00:57 36.6 C 59 L 20 117/66 97 01/18/21 00:42 36.6 C 60 18 101/50 L 95 01/18/21 00:30 36.6 C 60 18 101/50 L 95 01/18/21 00:10 67 20 118/55 L 95 01/18/21 00:00 65 18 113/54 L 94 01/17/21 23:50 36.6 C 65 18 115/39 L 94 01/17/21 23:40 56 L 14 131/61 94 01/17/21 23:30 66 14 140/61 93 01/17/21 23:20 67 14 135/61 93 01/17/21 23:13 36.5 C 71 13 145/[address] SCAN OF THE LEFT FEMUR WITH IV CONTRAST IMPRESSION: 1. No osseous abnormality is seen involving the left femur. 2. There is a large and multiloculated gas and fluid containing collection within the ventral aspect of the mid thigh as detailed above. This is typical in appearance for an abscess, and closely approximates dermal surface. 3. There is surrounding cellulitis. 4. The collection may involve the left sartorius and tensor fascia latae muscle PG Care Time/CCT Total # of Minutes Spent Total Time Spent with Patient: Total time spent is greater than 50% in coordination of care (as documented) at patient's floor/unit and/or counseling patient: Coding Level of Care Code 18323 Inpt Consult Level 4 Diagnoses Abscess of left thigh L02.416 Cellulitis of left thigh L03.116 Complex sleep apnea syndrome G47.31 CAD (coronary artery disease) I25.10 Paroxysmal atrial fibrillation I48.0 DVT prophylaxis Z29.9
[2021-01-18] MEDS: ASPIRIN 81 MG ECTAB PO SCH ×2 (10:17→11:35)
[2021-01-18] MEDS: CLOPIDOGREL BISULFATE 75 MG TAB PO SCH ×2 (10:18→11:34)
[2021-01-18] MEDS: DOCUSATE SODIUM 100 MG CAP PO SCH ×2 (10:42→20:21)
--- NOTE | 2021-01-18 10:53 | Anesthesiology Consultation ---
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 Surgery Operation Date: 01/17/21 20:30 Proposed Procedures p Incision and Drainage Extremity(Left) - Isael Hammer MD Operation Date: 01/19/21 07:30 Proposed Procedures p Incision and Drainage Extremity - Isael Hammer MD Height/Weight Height: 5 ft 9 in Weight: 73.4 kg Allergies Allergy/AdvReac Type Severity Reaction Status Date / Time No Known Drug Allergies Allergy Verified 01/17/21 19:02 Medications Home Medications Medication Instructions Recorded Confirmed Last Taken aspirin 81 mg tablet,delayed 81 mg PO DAILY tab 05/31/19 01/17/21 01/17/21 release coenzyme Q10 200 mg capsule 200 mg PO DAILY cap 05/31/19 01/17/21 01/17/21 multivitamin 1 tab PO DAILY 05/31/19 01/17/21 01/17/21 tadalafil 20 mg tablet 20 mg PO DAILY PRN #18 tab 08/25/19 01/17/21 Unknown clopidogrel 75 mg tablet 75 mg PO DAILY #90 tab 03/11/20 01/17/21 01/17/21 rosuvastatin 10 mg PO HS 01/17/21 01/17/21 01/16/21 Active Medications Generic Name Dose Route Start Last Admin Trade Name Beboq PRN Reason Stop Dose Admin Acetaminophen 1,000 mg 01/17/21 23:12 01/18/21 01:43 Acetaminophen 500 Mg Tab PO 02/16/21 23:11 1,000 mg Q8 PRN Administration Pain or Fever Aspirin 81 mg 01/18/21 09:00 01/18/21 10:17 Aspirin 81 Mg Ectab PO 02/17/21 08:59 Not Given DAILY CLARA Clopidogrel Bisulfate 75 mg 01/18/21 09:00 01/18/21 10:18 Clopidogrel Bisulfate 75 Mg Tab PO 02/17/21 08:59 Not Given DAILY CLARA Docusate Sodium 100 mg 01/18/21 09:00 01/18/21 10:42 Docusate Sodium 100 Mg Cap PO 02/17/21 08:59 100 mg BID CLARA Administration Ampicillin Sodium/Sulbactam 108 mls @ 216 mls/hr 01/18/21 00:45 01/18/21 06:27 Sodium 3,000 mg/ Sodium IV 01/25/21 00:44 Infused Chloride Q6 CLARA Infusion Vancomycin HCl 750 mg/ Sodium 265 mls @ 200 mls/hr 01/18/21 06:00 01/18/21 08:10 Chloride IV 01/25/21 05:59 Infused Q12H CLARA Infusion NPO Date Last Intake of Fluids: 01/17/21 Time Last Intake of Fluids: 13:00 Date Last Intake of Solids: 01/17/21 Time Last Intake of Solids: 13:00 Past Medical History Medical History Bilateral tinnitus CAD (coronary artery disease) Diverticulosis Foot pain Generalized osteoarthritis of multiple sites Hearing decreased Hearing loss Hematoma of left thigh Hematoma of left thigh History of pelvic fracture History of pericarditis Hyperlipidemia Internal hemorrhoids Paroxysmal atrial fibrillation Pericardial tamponade Pre-diabetes Prostate cancer Sensorineural hearing loss (SNHL) of both ears SNHL (sensorineural hearing loss) Tinnitus Past Family History Family History Sister Breast cancer Father Alcoholism Cirrhosis Denies family history of Prostate cancer Myocardial infarction Colorectal cancer Past Surgical History Surgical History H/O cardiac catheterization H/O colonoscopy with polypectomy H/O prostatectomy History of heart artery stent History of pelvic surgery Hx of foot surgery left Hx of tonsillectomy Status post creation of pericardial window Social History Smoking Status: Never smoker Do You Dip or Chew Tobacco: No Hx Alcohol Use: Yes Alcohol type: hard liquor alcohol intake frequency: holidays/special occasions only Hx Substance Use: No substance use type: does not use Physical Exam Vital Signs Last Vital Signs Temp 97.3 F L 01/18/21 07:04 Pulse 66 01/18/21 07:04 Resp 16 01/18/21 07:04 BP 105/42 L 01/18/21 07:04 Pulse Ox 95 01/18/21 07:04 Testing Laboratory Results 01/18/21 01:31 01/18/21 01:31 01/17/21 16:45 Gram Stain - Final Thigh,Left Wound Culture - Preliminary Group B Beta Strep 01/17/21 21:30 Gram Stain - Final Thigh,Left Electrocardiogram Date: 01/17/21 Findings: + NSR @ (63) 1st degree AV block with PACs, low voltage QRS Chest X-Ray Date: 01/17/21 IMPRESSION: Cardiomegaly and emphysema with no acute cardiopulmonary abnormality. Echocardiogram Date: 06/21/20 LV size, thickness and function are normal RA is mild to mod dilated
--- NOTE | 2021-01-18 12:21 | Progress Note ---
Date of Service January 18, 2021 Assessment & Plan (1) Abscess of left thigh: Appreciate medical consult. Culture done in the ER is growing out group B beta strep. Cultures from the OR are pending. Pathology pending. Discussed with patient and the plan. Return to the OR tomorrow to remove packing reevaluate the wound. Reirrigate and likely apply a wound VAC. This will help close down the large space that is present. They are aware that he will need to spend some time in the hospital and will need to make multiple trips back to the OR for wound VAC changes under sedation. Eventually once some healing progresses we should be able to do this on the floor and eventually at home. It will take a month or 2 to get this to heal up and then he may need a skin graft. Do quad sets ankle pumps leg raises. He can discontinue the knee immobilizer but should ambulate with walker and assistance. Continue intravenous antibiotics. Aspirin and SCDs for DVT prophylaxis. Informed consent is obtained for procedure tomorrow morning and he is n.p.o. after midnight. Labs noted. H&H okay. White count still elevated. Admission and Anticipated Discharge Date Admission Date: January 17, 2021 Subjective Resting comfortably in bed. Minimal to no pain. No tingling numbness. Physical Exam Physical Exam: Normal sensation throughout the entire leg. He has a trace palpable posterior tib pulse and a 1+ palpable dorsalis pedis pulse. The foot is warm with capillary refill less than 2 seconds. He has normal sensation along the course of the saphenous nerve. He can do a good quad set and elevate the leg. He can extend the knee against resistance 5 to 5- out of 5 strength. He has 5 out of 5 strength with ankle and toe plantarflexion dorsiflexion inversion and eversion. The dressing is soaked with blood. The dressing is changed and the leg is clean. There is no active bleeding. Packing in place. A new bulky soft sterile dressings applied Xeroform 4 x 4's ABD Mehul wrap. Results & Data ([facility]) Vital Signs (Past 12 Hours) Vital Signs Temp Pulse Resp BP Pulse Ox 01/18/21 07:04 36.3 C L 66 16 105/42 L 95 01/18/21 03:24 36.4 C L 70 16 132/84 93 01/18/21 02:33 36.3 C L 72 16 110/56 L 95 01/18/21 01:44 36.5 C 65 20 117/62 97 01/18/21 00:57 36.6 C 59 L 20 117/66 97 01/18/21 00:42 36.6 C 60 18 101/50 L 95 01/18/21 00:30 36.6 C 60 18 101/50 L 95 Laboratory Results Laboratory Results WBC 15.09 K/uL (4.8-10.8) H 01/18/21 01:31 RBC 3.89 M/uL (4.7-6.1) L 01/18/21 01:31 Hgb 11.5 g/dL (14.0-18.0) L 01/18/21 01:31 Hct 35.5 % (42-52) L 01/18/21 01:31 MCV 91.3 fL (80-100) 01/18/21 01:31 MCH 29.6 pg (25-34) 01/18/21 01:31 MCHC 32.4 g/dL (32-36) 01/18/21 01:31 RDW Std Deviation 48.9 fL (36.4-46.3) H 01/18/21 01:31 RDW Coeff of Coral 14.7 % (11.5-14.5) H 01/18/21 01:31 Plt Count 168 K/uL (130-400) 01/18/21 01:31 MPV 10.4 fL (7.4-10.4) 01/18/21 01:31 Immature Gran % (Auto) 0.2 % 01/17/21 17:08 Neut % (Auto) 81.1 % 01/17/21 17:08 Lymph % (Auto) 9.3 % 01/17/21 17:08 Bucks % (Auto) 9.2 % 01/17/21 17:08 Eos % (Auto) 0.1 % 01/17/21 17:08 Baso % (Auto) 0.1 % 01/17/21 17:08 Neut # (Auto) 12.19 K/uL (1.4-6.5) H 01/17/21 17:08 Lymph # (Auto) 1.40 K/uL (1.2-3.4) 01/17/21 17:08 Bucks # (Auto) 1.38 K/uL (0.11-0.59) H 01/17/21 17:08 Eos # (Auto) 0.01 K/uL (0-0.5) 01/17/21 17:08 Baso # (Auto) 0.01 K/uL (0-0.2) 01/17/21 17:08 Immature Gran # (Auto) 0.03 K/uL (0.00-0.02) H 01/17/21 17:08 ESR 29 mm/hr (0-14) H 01/17/21 17:08 Sodium 140 mmol/L (136-145) 01/18/21 01:31 Potassium 4.6 mmol/L (3.5-5.1) 01/18/21 01:31 Chloride 110 mmol/L (98-107) H 01/18/21 01:31 Carbon Dioxide 23 mmol/L (21-32) 01/18/21 01:31 Anion Gap 7.0 (3-11) 01/18/21 01:31 BUN 37 mg/dl (7-18) H 01/18/21 01:31 Creatinine 1.22 mg/dl (0.6-1.4) 01/18/21 01:31 Est Cr Clr Drug Dosing 46.7 ml/min 01/18/21 01:31 Est GFR ( Amer) 63.6 01/18/21 01:31 Est GFR (Non-Af Amer) 54.9 01/18/21 01:31 BUN/Creatinine Ratio 30.6 (10-20) H 01/18/21 01:31 Glucose 217 mg/dl (70-99) H 01/18/21 01:31 Calcium 8.1 mg/dl (8.5-10.1) L 01/18/21 01:31 Total Bilirubin 1.3 mg/dl (0.2-1) H 01/17/21 17:08 AST 13 U/L (15-37) L 01/17/21 17:08 ALT 23 U/L (12-78) 01/17/21 17:08 Alkaline Phosphatase 55 U/L (45-117) 01/17/21 17:08 C-Reactive Protein 21.40 mg/dl (0-0.29) H 01/17/21 17:08 Total Protein 7.1 gm/dl (6.4-8.2) 01/17/21 17:08 Albumin 3.2 gm/dl (3.4-5.0) L 01/17/21 17:08 Globulin 3.9 gm/dl (2.5-4.0) 01/17/21 17:08 Albumin/Globulin Ratio 0.8 (0.9-2) L 01/17/21 17:08 Procalcitonin 0.23 ng/ml (0-0.5) 01/17/21 17:08 COVID-19 Eval Order CovFluRsv at [facility] 01/17/21 18:30 SARS-CoV-2 (PCR) NEGATIVE (Negative) 01/17/21 18:30 Influenza Type A (PCR) Negative (Neg) 01/17/21 18:30 Influenza Type B (PCR) Negative (Neg) 01/17/21 18:30 RSV (RT-PCR) Negative (Neg) 01/17/21 18:[address] 01/17/21 16:48 CT SCAN OF THE LEFT FEMUR WITH IV CONTRAST CLINICAL HISTORY: Left thigh edema and drainage. COMPARISON STUDY: CT scan of the left femur dated 08/11/2019. TECHNIQUE: Following the IV administration of 88 mL of Isovue 20, CT scan of the left femur is performed from the bony pelvis to the proximal tibia and fibula. Images are reviewed in the axial, sagittal, and coronal planes. IV contrast was administered without complication. A dose lowering technique was utilized adhering to the principles of ALARA. Note that interpretation is suboptimal without plain film correlate. CT DOSE: 327.07 mGy.cm FINDINGS: The skeletal structures are osteopenic. There is no evidence of left femoral fracture. There is no bony erosion or periostitis. No lytic or blastic lesion is seen. The visualized left hemipelvis appears intact. Postoperative change is seen involving the pubic symphysis. Mild to moderate degenerative change is noted in the left hip. There is no significant joint effusion. There is a multiloculated, thick-walled, gas and fluid containing collection identified within the anterior aspect of the mid thigh. This measures approxim ately 12 x 5.5 x 15.5 cm in aggregate dimension. This closely approximates the dermal surface, and there is surrounding dermal thickening and subcutaneous soft tissue edema consistent with cellulitis. This may involve the sartorius and tensor fascia latae muscles. The left femoral artery appears intact and patent noting atherosclerotic calcification and irregularity. There is no left inguinal adenopathy. The bladder is normal as visualized. The prostate gland is surgically absent. IMPRESSION: 1. No osseous abnormality is seen involving the left femur. 2. There is a large and multiloculated gas and fluid containing collection within the ventral aspect of the mid thigh as detailed above. This is typical in appearance for an abscess, and closely approximates dermal surface. 3. There is surrounding cellulitis. 4. The collection may involve the left sartorius and tensor fascia latae muscles. ACT 112: Negative or not required by law. Dictated: 01/17/2021 6:07 PM Transcribed: 01/17/2021 6:40 PM Corrie [id number] [facility] Electronically signed by: Deepak Carlos M.D. 01/17/2021 6:41 PM Chest X-Ray 01/17/21 19:58 SINGLE VIEW CHEST CLINICAL HISTORY: Left thigh abscess. Emphysema. Preadmission testing. FINDINGS: An AP, portable, upright chest radiograph is compared to study dated 03/14/2015. Correlation is made with chest CT dated 03/01/2015. The heart is enlarged noting atherosclerotic calcification of the thoracic aorta. The pulmonary vasculature is noncongested. Emphysema and chronic interstitial thickening is similar to previous. There is bibasilar scarring/atelectasis. No airspace consolidation or large pleural effusion is identified. No pneumothorax is seen. The skeletal structures are osteopenic. There are healed right-sided rib fractures. IMPRESSION: Cardiomegaly and emphysema with no acute cardiopulmonary abnormality. ACT 112: Negative or not required by law. Electronically signed by: Deepak Carlos M.D. 01/17/2021 8:21 PM
[2021-01-18] MEDS ORDERED: SODIUM CHLORIDE 0.9% 1000ML 1,000 ML IV SCH (17:00)
[2021-01-18 17:06] LABS: BUN Creatinine Ratio 26.5 (10-20); Calcium 7.5 mg/dl (8.5-10.1); Creatinine Clr Calc Pharmacy 40.7 ml/min; Est GFR (African American) 53.8; Est GFR (Non-African American) 46.5; Potassium 4.3 mmol/L (3.5-5.1)
[2021-01-18 17:33] LABS: Basophils # (auto) 0.02 K/uL (0-0.2); Basophils % (auto) 0.1 %; Eosinophils # (auto) 0.05 K/uL (0-0.5); Eosinophils % (auto) 0.4 %; Hematocrit (blood only) 25.3 % (42-52); Hemoglobin 8.3 g/dL (14.0-18.0); Immature Granulocytes # (auto) 0.07 K/uL (0.00-0.02); Immature Granulocytes % (auto) 0.5 %; Lymphocytes # (auto) 2.93 K/uL (1.2-3.4); Lymphocytes % (auto) 21.3 %; Mean Corpuscular Hemoglobin 30.2 pg (25-34); Mean Corpuscular Hgb Conc 32.8 g/dL (32-36); Mean Platelet Volume 10.3 fL (7.4-10.4); Monocytes # (auto) 1.52 K/uL (0.11-0.59); Monocytes % (auto) 11.1 %; Neutrophils # (auto) 9.14 K/uL (1.4-6.5); Neutrophils % (auto) 66.6 %; Platelet Count 170 K/uL (130-400); RDW Coefficient of Variation 14.7 % (11.5-14.5); RDW Standard Deviation 49.2 fL (36.4-46.3); Red Blood Count 2.75 M/uL (4.7-6.1); White Blood Count 13.73 K/uL (4.8-10.8)
--- NOTE | 2021-01-18 17:36 | Progress Note ---
Date of Service January 18, 2021 Assessment & Plan (1) Syncope: Recommend we keep him in bed as getting up seem to precipitate some of the events. He is not tachycardic. He is not hypotensive. His hemoglobin has gone from 11-8 and his hematocrit from 35-25. We will continue to monitor. We will make sure that he is typed and crossed. He will be given some IV fluids and transfused as necessary. Persistence of bleeding may necessitate return to the OR. May need to consult vascular. Present on Admission?: No Admission and Anticipated Discharge Date Admission Date: January 17, 2021 Subjective Mr. Magana is going to the bathroom. He apparently became lightheaded and dizzy. There are conflicting reports as to whether or not he lost consciousness. He did not fall. Prior to this the nurses contacted me via Etlan text because he had been up and there was increased saturation of his dressing. This morning the dressing was saturated but we changed it and it was there was no active bleeding. He was transferred to PCU because of the code purple. The PCU nurse contacted me to come evaluate him. Physical Exam Physical Exam: He is awake alert and oriented and in no distress. He responds to questions appropriately. When not provoked the leg is not painful. He has normal sensation and intact ankle and toe plantarflexion dorsiflexion strength and 1+ palpable dorsalis pedis and posterior tib pulses. Capillary refill is less than 2 seconds. There is saturation of the dressings with blood. The dressings are removed. There is no active bleeding present. The thigh is appropriately swollen based upon the surgery and packing that was placed. A new bulky dressing is applied with multiple ABDs and an Mehul wrap. Results & Data ([facility]) Vital Signs (Past 12 Hours) Vital Signs Temp Pulse Resp BP BP Pulse Ox 01/18/21 16:57 36.6 C 75 18 112/58 L 96 01/18/21 15:04 36.5 C 69 18 92/53 L 96 01/18/21 07:04 36.3 C L 66 16 105/42 L 95
[2021-01-18] MEDS ORDERED: SODIUM CHLORIDE 0.9% 250 ML IV PRN ×2 (17:37→23:03)
[2021-01-18] MEDS: traMADol HCL 50 MG TABLET PO PRN (18:37)
--- NOTE | 2021-01-18 18:39 | Electrocardiogram Report ---
Test Reason : Blood Pressure : / mmHG Vent. Rate : 063 BPM Atrial Rate : 063 BPM P-R Int : 334 ms QRS Dur : 084 ms QT Int : 422 ms P-R-T Axes : 053 -01 019 degrees QTc Int : 431 ms Sinus rhythm with 1st degree A-V block with Premature atrial complexes Low voltage QRS Borderline ECG When compared with ECG of 14-MAR-2015 17:37, Sinus rhythm has replaced Atrial fibrillation Confirmed by Chance Kwok ([id number]) on 01/18/2021 6:39:09 PM Referred By: Darrel Alonso Confirmed By:Simeon Kwok
--- NOTE | 2021-01-18 20:05 | Communication Note ---
Date of Service: January 18, 2021 Called to code samia around 4:20 PM. Patient was slumping to the left side and the chair and noted to be pale. With to assist patient got into bed and p ossibly had a syncopal episode. On arrival the patient was embedded in the Trendelenburg position. He appears much more pale from earlier in the day but is less than orientated x3. No focal neurology present. HS RRR, no murmurs, Chest CTAB. Abdomen soft nontender. Bright red blood present beyond compression of bandage further up leg. BP/HR normal. NSS 1L bolus ordered. Second IV site established and stat CBC, BMP, type and cross taken. Patient will be transferred to PCU. Discussed with orthopedic PA at bedside who will inform Dr Hammer, dressing likely need to be re-dressed however given hemodynamic stability no urgent need for this prior to transfer and may cause further hemodynamic compromise. Repeat Hgb 8.3 from 11.5 @ 1:30am. Discussed with orthopedic PA and will transfuse 2 units with plan to operate in AM. Repeat Hgb 2 hours after second blood transfusion. If Hgb < 9, transfuse further unit/s as appropriate.
[2021-01-18] MEDS: ROSUVASTATIN CALCIUM 10 MG TAB PO SCH (20:21)
[2021-01-18] MEDS: SENNA 8.6 MG TAB PO SCH (20:21)
[2021-01-18 20:45] LABS: INR 1.2 (0.9-1.1); Partial Thromboplastin Ratio 1.1; Partial Thromboplastin Time 30.2 Seconds (21.0-31.0); Prothrombin Time 11.8 Seconds (9.0-12.0)
[2021-01-18] MEDS: LACTATED RINGER'S 1,000 ML IV SCH (22:32)
[2021-01-19] MEDS: AMPICILLIN/SULBACTAM SOD 3,000 MG in 0.9 % SODIUM CHLORIDE 100 ML IV SCH ×4 (00:16→17:28)
[2021-01-19 03:34] LABS: Basophils # (auto) 0.01 K/uL (0-0.2); Basophils % (auto) 0.1 %; Hematocrit (blood only) 29.2 % (42-52); Hemoglobin 9.4 g/dL (14.0-18.0); Immature Granulocytes # (auto) 0.02 K/uL (0.00-0.02); Immature Granulocytes % (auto) 0.3 %; Lymphocytes # (auto) 0.92 K/uL (1.2-3.4); Lymphocytes % (auto) 12.1 %; Mean Corpuscular Hemoglobin 28.4 pg (25-34); Mean Corpuscular Hgb Conc 32.2 g/dL (32-36); Mean Corpuscular Volume 88.2 fL (80-100); Mean Platelet Volume 10.7 fL (7.4-10.4); Monocytes # (auto) 0.91 K/uL (0.11-0.59); Neutrophils # (auto) 5.75 K/uL (1.4-6.5); Neutrophils % (auto) 75.5 %; Platelet Count 113 K/uL (130-400); RDW Coefficient of Variation 15.6 % (11.5-14.5); RDW Standard Deviation 50.6 fL (36.4-46.3); Red Blood Count 3.31 M/uL (4.7-6.1); White Blood Count 7.61 K/uL (4.8-10.8)
[2021-01-19 04:07] LABS: BUN Creatinine Ratio 35.2 (10-20); C Reactive Protein 18.8 mg/dl (0-0.29); Calcium 7.5 mg/dl (8.5-10.1); Est GFR (African American) 86.1; Est GFR (Non-African American) 74.2; Potassium 4.7 mmol/L (3.5-5.1)
[2021-01-19] MEDS ORDERED: VANCOMYCIN TROUGH ONE (05:30)
[2021-01-19] MEDS ORDERED: TRANEXAMIC ACID / 0.7% NACL 1,000 MG/100 ML BAG IV SCH (06:00)
[2021-01-19] MEDS: VANCOMYCIN HCL 750 MG in SODIUM CHLORIDE 0.9% 250 ML IV SCH (06:23)
[2021-01-19] MEDS: LACTATED RINGER'S 1,000 ML IV SCH (06:24)
[2021-01-19] MEDS ORDERED: LIDOCAINE HCL 2% 2 ML VIAL/AMP(20MG/ML) INFIL ONE (07:18)
[2021-01-19] MEDS ORDERED: DEXAMETHASONE SOD INJ 4 MG/ML VIAL ONE (07:18)
[2021-01-19] MEDS ORDERED: PROPOFOL IV EMULSION 10 MG/ML 20 ML VIAL IV ONE (07:18)
[2021-01-19] MEDS ORDERED: fentaNYL citrate 100 MCG/2 ML VIAL ONE ×2 (07:18→07:58)
[2021-01-19] MEDS ORDERED: ONDANSETRON INJ 2 MG/ML 2 ML VIAL ONE (07:18)
--- NOTE | 2021-01-19 07:18 | History & Physical Bridge Note ---
Date of Service January 19, 2021 History & Physical Bridge Note I have examined the patient, reviewed the History & Physical and in the interval since the performance of the History & Physical I have noted the following changes of clinical significance: no changes noted, patient in no pain. He is not lightheaded or dizzy. He is neurovascularly intact. The dressing did bleed through at about 1 AM but now is not saturated. His hemoglobin this morning is 9 up from yesterday status post 2 units of blood. He is stable to proceed with surgery.
[2021-01-19] MEDS ORDERED: ATROPINE SULFATE 0.1 MG/ML 10ML SYR IV PRN (07:20)
[2021-01-19] MEDS ORDERED: ePHEDrine sulfate 50 MG/ML AMP IV PRN (07:20)
[2021-01-19] MEDS ORDERED: fentaNYL citrate 100 MCG/2 ML VIAL IV PRN (07:20)
[2021-01-19] MEDS ORDERED: ONDANSETRON INJ 2 MG/ML 2 ML VIAL IV PRN ×2 (07:20→08:55)
--- NOTE | 2021-01-19 08:40 | Pharmacy Report ---
Pharmacy Abx Dose Short Note - Date of Service January 19, 2021 - Assessment & Plan Assessment 80 year old M receiving IV Vancomycin and Unasyn for treatment of abscess L thigh Day # 3 of antimicrobial therapy. * Patient had I&D on 01/17 and will be going to surgery today, 01/19 to "remove packing reevaluate the wound. Reirrigate and likely apply a wound VAC" per surgery note * Patient has been receiving Vancomycin 750mg IV q12 as per Vancomycin AUC nomogram * He was transfused with 2 units of blood last night. Unsure if and/or how much transfusion affected labs today. sCr "improved" to 0.95mg/dL (from 1.22 mg/dL). * L thigh cultures growing group B beta strep; awaiting sensitivities Plan Vancomycin * Trough level of 8.2 mcg/mL is subtherapeutic. However, this is an early level not reflective of Vancomycin at steady state and accuracy of level is also uncertain given recent blood transfusion. Nevertheless, will shorten dosing interval as do not think Vancomycin will achieve goal trough concentrations on current regimen. Based on past experiences, pharmacokinetics of Vancomycin is unpredictable in elderly patients and this patient likewise seems to be eliminating Vancomycin more rapidly than estimated. * Change to 750 mg IV every 8 hours * Goal trough level for cellulitis : ~15 mcg/mL * Trough level ordered for: 01/20/21 @ 1130 (prior to 4th dose and therefore reflective of [facility] will continue to follow and will adjust dose/frequency as necessary. Thank you.
[2021-01-19] MEDS ORDERED: MAGNESIUM HYDROXIDE SUSP 30 ML UDC PO PRN (08:55)
[2021-01-19] MEDS ORDERED: NALOXONE HCL 0.4 MG/1 ML VIAL/CARP IV PRN (08:55)
[2021-01-19] MEDS ORDERED: bisacodyL 10 MG SUPP PR PRN (08:55)
[2021-01-19] MEDS ORDERED: METOCLOPRAMIDE HCL INJ 5 MG/ML 2 ML VIAL IV PRN (08:55)
[2021-01-19] MEDS ORDERED: DOCUSATE SODIUM 100 MG CAP PO SCH (09:00)
[2021-01-19] MEDS ORDERED: SODIUM CHLORIDE 0.9% 1000ML 1,000 ML IV SCH (09:00)
--- NOTE | 2021-01-19 09:00 | Operative Report ---
Post Operative Report Pre & Post Diagnosis Operation Date: 01/17/21 20:30 Pre-Op Diagnosis: INFECTION IN LEFT LEG Post-Op Diagnosis: INFECTION IN LEFT LEG Operation Date: 01/19/21 07:30 Pre-Op Diagnosis: Left thigh abscess Post-Op Diagnosis: Left thigh abscess, left thigh hematoma I identified the patient and participated in the time-out.: Yes Procedure Operation Date: 01/17/21 20:30 Actual Procedures p Incision and Drainage Left Thigh Abscess(Left) - Isael Hammer MD Operation Date: 01/19/21 07:30 Actual Procedures p Incision and Drainage of Left thigh, evacuation of left thigh wound hematoma. (Left) - Isael Hammer MD Surgeon Isael Hammer MD Publications Designer Yahaira Barbour no resident or fellow available Estimated Blood Loss 200 Findings Consistent with Post-Op Diagnosis There was a large wound hematoma present consisting of at least 200 cc of clotted blood. Specimens None Drains Wound VAC Anesthesia Type General Complications none Disposition Accompanied Patient To Recovery: No Disposition: Recovery Room Indications Patient is 80. He is 2 days status post I&D of a left thigh abscess and excision of a chronic mass. He had bleeding yesterday and required a transfusion although the wound was dry at the time of closure at last procedure. He received 2 units of blood overnight and his hemoglobin was 9 this morning. He is taken back to surgery today for reevaluation of his wound and application of wound VAC. Description of Procedure Informed consent obtained. Patient identified. He identified the operative site as the left thigh. I marked with my initials. A preoperative surgical timeout was performed and a preop dose of IV antibiotics was given. He was positioned supine on the operating room table. The anesthetic was administered. The dressing was removed and showed some bloody serous accumulation in the dressings but no active bleeding. The prior sutures were removed and then using some sterile saline irrigation the gauze packing was removed. There was no active bleeding but there was a large blood clot within the wound. The leg was prescrubbed with Betadine and then prepped with Betadine and draped in the usual sterile fashion. DVT prophylaxis with SCDs. The clot was evacuated and was at least 200 cc. It filled up about two thirds of a kidney basin. This was done carefully not to stir up any bleeding. Then irrigated with 3 L pulsatile lavage and removed as much of the remaining hematoma as possible. The wound looked pristine. There is no evidence of infection. No pus. There was no bleeding. I did cauterize a little bit of an ooze in the deep portion of the medial wound but throughout the entire procedure there was no active bleeding encountered. The wound VAC was then applied using a silver sponge. The wound was covered with Adaptic after loose approximation proximally and distally with 2-0 nylon. The VAC was deployed without difficulty and had positive negative pressure suction. The leg was cleaned with wet and dry sponges. Prior to applying the wound VAC the leg was cleaned and skin prep was utilized. The leg was covered with a full-length Mehul wrap and an ABD under the tubing. He was awakened from anesthesia without difficulty and taken to recovery room in stable condition. There were no specimens or complications. Counts were correct and blood loss was estimated to be 200 cc based upon the removal of the blood clot but there was no active bleeding blood loss. I spoke to the at the conclusion of the procedure and discussed my findings. Plan is to hold his aspirin and Plavix. He is growing out group B beta strep and will consult ID. Continue the antibiotics. We will place him on bed rest temporarily. Return to the OR Wednesday for wound VAC change. I attest to the content of the Intraoperative Record and any orders documented therein. Any exceptions are noted below.
--- NOTE | 2021-01-19 09:02 | Operative Report ---
Post Operative Report Pre & Post Diagnosis Operation Date: 01/17/21 20:30 Pre-Op Diagnosis: INFECTION IN LEFT LEG Post-Op Diagnosis: INFECTION IN LEFT LEG Operation Date: 01/19/21 07:30 Pre-Op Diagnosis: Left thigh abscess Post-Op Diagnosis: Left thigh abscess I identified the patient and participated in the time-out.: Yes Procedure Operation Date: 01/17/21 20:30 Actual Procedures p Incision and Drainage Left Thigh Abscess(Left) - Isael Hammer MD Operation Date: 01/19/21 07:30 Actual Procedures p Incision and Drainage of Left thigh (Left) - Isael Hammer MD Surgeon Isael Hammer MD Yeast Cake Cutter Yahaira Barbour no resident or fellow available Estimated Blood Loss 200 Findings Consistent with Post-Op Diagnosis Specimens none Drains wound vac Complications none Description of Procedure See Dr Hammer note. I was cutter first during entire case to include prepping, draping, limb and instrument handling, placement of wound vac, jewel ssings. I attest to the content of the Intraoperative Record and any orders documented therein. Any exceptions are noted below.
--- NOTE | 2021-01-19 09:16 | Anesthesiology Progress Note ---
Date of Service January 19, 2021 Anesthesia Post Procedure Vital Signs Vital Signs: Temp Pulse Pulse Pulse Resp BP BP 01/19/21 09:05 64 15 129/67 01/19/21 08:55 67 16 122/46 L 01/19/21 08:48 97.9 F 69 16 120/51 L 01/19/21 07:36 64 01/19/21 07:10 97.7 F 69 18 01/19/21 06:29 01/19/21 03:38 97.5 F L 59 L 18 117/58 L 01/19/21 02:07 97.9 F 63 16 98/56 L 01/19/21 01:31 57 L 01/19/21 01:27 64 H 01/19/21 00:46 97.5 F L 63 12 94/54 L 01/19/21 00:16 98.1 F 64 18 119/62 01/19/21 00:01 97.7 F 68 18 96/57 L 01/18/21 23:45 97.5 F L 59 L 16 95/53 L 01/18/21 22:56 98.4 F 64 19 01/18/21 22:09 97.5 F L 64 18 102/62 01/18/21 21:16 97.7 F 66 18 103/62 01/18/21 20:16 98.4 F 61 18 112/57 L 01/18/21 19:16 97.7 F 64 18 115/54 L 01/18/21 19:13 97.7 F 64 18 01/18/21 18:46 98.1 F 68 16 114/57 L 01/18/21 18:30 98.1 F 67 16 114/61 01/18/21 18:15 97.9 F 67 16 99/54 L 01/18/21 17:00 76 01/18/21 16:57 97.9 F 75 18 01/18/21 15:04 97.7 F 69 18 BP Pulse Ox 01/19/21 09:05 92 01/19/21 08:55 92 01/19/21 08:48 99 01/19/21 07:36 01/19/21 07:10 122/75 94 01/19/21 06:29 102/52 L 97 01/19/21 03:38 100 01/19/21 02:07 98 01/19/21 01:31 01/19/21 01:27 100/52 L 95 01/19/21 00:46 95 01/19/21 00:16 95 01/19/21 00:01 98 01/18/21 23:45 94 01/18/21 22:56 103/54 L 99 01/18/21 22:09 98 01/18/21 21:16 98 01/18/21 20:16 98 01/18/21 19:16 93 01/18/21 19:13 115/54 L 93 01/18/21 18:46 97 01/18/21 18:30 97 01/18/21 18:15 01/18/21 17:00 01/18/21 16:57 112/58 L 96 01/18/21 15:04 92/53 L 96 Pain Intensity Left Thigh: Pain Intensity: 2 Transfer of Care Handoff Completed per policy Notes Mental Status: alert / awake / arousable and participated in evaluation Patient Amnestic to Procedure: Yes Nausea / Vomiting: adequately controlled Pain: adequately controlled Airway Patency, RR, SpO2: stable & adequate BP & HR: stable & adequate Hydration State: stable & adequate Anesthetic Complications: no major complications apparent and Pt Satisfied with anesthetic care
[2021-01-19] MEDS: DOCUSATE SODIUM 100 MG CAP PO SCH ×2 (10:20→20:35)
[2021-01-19] MEDS: MULTIVITAMIN TAB PO SCH (10:20)
[2021-01-19] MEDS ORDERED: KETAMINE 50 MG/5 ML SYRINGE ONE (10:23)
[2021-01-19] MEDS ORDERED: VANCOMYCIN HCL 750 MG in SODIUM CHLORIDE 0.9% 250 ML IV SCH (12:00)
[2021-01-19] MEDS ORDERED: SODIUM CHLORIDE 0.9% 250 ML IV PRN (12:58)
--- NOTE | 2021-01-19 13:02 | Hospitalist Progress Note ---
Date of Service January 19, 2021 Assessment & Plan (1) Acute blood loss anemia: s/p 2 units packed RBCs overnight. Will repeat serial H&H. Transfuse threshold Hgb aim > 9 given ongoing need for operation and coronary artery disease. (2) Abscess of left thigh: Discontinue vancomycin since Group B strep growing in both wound cultures. ID consulted by primary team for further antibiotic selection therefore will defer further antibiotic selection to ID. (3) Cellulitis of left thigh: As above. 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 He is not on ASV. (5) CAD (coronary artery disease): Acute myocardial infarction with drug-eluting stent to proximal LAD in February 2015. Holding ASA, clopidogrel in the setting of acute hemorrhage, continue rosuvastatin. (6) Paroxysmal atrial fibrillation: Solitary episode in the setting of acute [place] therefore not on anti coagulation. No known recurrence of his atrial fibrillation since this time. (7) DVT prophylaxis: SCDs. Chemical prophylaxis deferred due to acute hemorrhage. Admission and Anticipated Discharge Date Admission Date: January 17, 2021 Subjective Patient with better color this morning. Less pale appearing. Wound VAC now in place. No chest pain, lightheadedness or shortness of breath but also not yet been out of bed. No fever or chills. Review of Systems Review of Systems: All systems reviewed & are unremarkable except as noted in HPI & below Physical Exam Constitutional: well developed and well nourished; no acute distress Eyes: + conjunctival abnormality (pale); normal pupil size ENMT: external ear and nose normal, oropharynx normal Respiratory: normal respiratory effort, lungs clear to auscultation Cardiovascular: RRR, no murmur, no edema Gastrointestinal (Abdomen): normal bowel sounds, soft, nontender, no hepatosplenomegaly Neurologic: moves all extremities and awake; not confused Psychiatric: A+Ox3, euthymic affect Results & Data Results & Data ([facility]) Vital Signs (Past 12 Hours) Vital Signs Temp Pulse Pulse Pulse Pulse Resp BP 01/19/21 12:45 36.5 C 63 18 01/19/21 11:45 70 01/19/21 11:18 36.6 C 64 20 01/19/21 10:25 36.5 C 70 01/19/21 10:21 77 01/19/21 09:49 36.7 C 67 01/19/21 09:30 66 14 01/19/21 09:15 36.8 C 72 15 01/19/21 09:05 64 15 01/19/21 08:55 67 16 01/19/21 08:48 36.6 C 69 16 01/19/21 07:36 64 01/19/21 07:10 36.5 C 69 18 01/19/21 06:29 01/19/21 03:38 36.4 C L 59 L 18 01/19/21 02:07 36.6 C 63 16 98/56 L 01/19/21 01:31 57 L 01/19/21 01:27 64 H BP BP Pulse Ox 01/19/21 12:45 110/60 01/19/21 11:45 106/55 L 93 01/19/21 11:18 99/55 L 93 01/19/21 10:25 101/45 L 96 01/19/21 10:21 105/56 L 92 01/19/21 09:49 124/61 91 01/19/21 09:30 125/60 92 01/19/21 09:15 102/66 93 01/19/21 09:05 129/67 92 01/19/21 08:55 122/46 L 92 01/19/21 08:48 120/51 L 99 01/19/21 07:36 01/19/21 07:10 122/75 94 01/19/21 06:29 102/52 L 97 01/19/21 03:38 117/58 L 100 01/19/21 02:07 98 01/19/21 01:31 01/19/21 01:27 100/52 L 95 PG Care Time/CCT Total # of Minutes Spent Total Time Spent with Patient: Total time spent is greater than 50% in coordination of care (as documented) at patient's floor/unit and/or counseling patient: Coding Level of Care Code 94436 Subseq Hosp Care Lvl 2 Diagnoses Acute blood loss anemia D62 Abscess of left thigh L02.416 Cellulitis of left thigh L03.116 Complex sleep apnea syndrome G47.31 CAD (coronary artery disease) I25.10 Paroxysmal atrial fibrillation I48.0 DVT prophylaxis Z29.9
[2021-01-19] MEDS: SODIUM CHLORIDE 0.45 % 1,000 ML IV SCH (13:13)
[2021-01-19] MEDS ORDERED: NEOSTIGMINE METHYLSULFATE 5 MG/5 ML SYR ONE (13:35)
[2021-01-19] MEDS ORDERED: GLYCOPYRROLATE 0.2 MG/ML VIAL ONE (13:35)
[2021-01-19] MEDS ORDERED: TRANEXAMIC ACID / 0.7% NACL 1,000 MG/100 ML BAG IV ONE (14:00)
--- NOTE | 2021-01-19 14:47 | Progress Note ---
Date of Service January 19, 2021 Patient seen postop. No problems. Pain well controlled. Surgical findings and plan discussed. Neurovascular intact. Wound VAC in place without significant drainage. No notable bleeding. Afebrile vital signs stable. Hemoglobin 8 hematocrit 29 postop. Stable. Assessment & Plan Admission and Anticipated Discharge Date Admission Date: January 17, 2021 Results & Data ([facility]) Vital Signs (Past 12 Hours) Vital Signs Temp Pulse Pulse Pulse Pulse Resp BP 01/19/21 14:27 36.7 C 63 20 01/19/21 14:04 36.4 C L 64 18 102/57 L 01/19/21 13:50 36.4 C L 69 19 117/58 L 01/19/21 13:35 36.6 C 65 18 127/51 L 01/19/21 12:45 36.5 C 63 18 01/19/21 11:45 70 16 01/19/21 11:18 36.6 C 64 20 01/19/21 10:25 36.5 C 70 16 01/19/21 10:21 77 16 01/19/21 09:49 36.7 C 67 20 01/19/21 09:30 66 14 01/19/21 09:15 36.8 C 72 15 01/19/21 09:05 64 15 01/19/21 08:55 67 16 01/19/21 08:48 36.6 C 69 16 01/19/21 07:36 64 01/19/21 07:10 36.5 C 69 18 01/19/21 06:29 01/19/21 03:38 36.4 C L 59 L 18 BP BP Pulse Ox 01/19/21 14:27 107/57 L 95 01/19/21 14:04 94 01/19/21 13:50 93 01/19/21 13:35 94 01/19/21 12:45 110/60 01/19/21 11:45 106/55 L 93 01/19/21 11:18 99/55 L 93 01/19/21 10:25 101/45 L 96 01/19/21 10:21 105/56 L 92 01/19/21 09:49 124/61 91 01/19/21 09:30 125/60 92 01/19/21 09:15 102/66 93 01/19/21 09:05 129/67 92 01/19/21 08:55 122/46 L 92 01/19/21 08:48 120/51 L 99 01/19/21 07:36 01/19/21 07:10 122/75 94 01/19/21 06:29 102/52 L 97 01/19/21 03:38 117/58 L 100
[2021-01-19 18:54] LABS: Hematocrit (blood only) 26.3 % (42-52); Hemoglobin 8.9 g/dL (14.0-18.0)
[2021-01-19] MEDS: SENNA 8.6 MG TAB PO SCH (20:31)
[2021-01-19] MEDS: ROSUVASTATIN CALCIUM 10 MG TAB PO SCH (20:31)
[2021-01-19] MEDS ORDERED: SENNA 8.6 MG TAB PO SCH (21:00)
[2021-01-20] MEDS: AMPICILLIN/SULBACTAM SOD 3,000 MG in 0.9 % SODIUM CHLORIDE 100 ML IV SCH ×5 (01:18→23:49)
[2021-01-20] MEDS: SODIUM CHLORIDE 0.45 % 1,000 ML IV SCH (04:49)
[2021-01-20 08:15] LABS: Hematocrit (blood only) 23.2 % (42-52); Immature Granulocytes # (auto) 0.05 K/uL (0.00-0.02); Immature Granulocytes % (auto) 0.5 %; Lymphocytes % (auto) 10.2 %; Mean Corpuscular Hemoglobin 29.3 pg (25-34); Mean Corpuscular Hgb Conc 34.5 g/dL (32-36); Mean Platelet Volume 9.9 fL (7.4-10.4); Monocytes # (auto) 1.01 K/uL (0.11-0.59); Monocytes % (auto) 10.3 %; Neutrophils # (auto) 7.75 K/uL (1.4-6.5); Platelet Count 127 K/uL (130-400); RDW Coefficient of Variation 15.6 % (11.5-14.5); RDW Standard Deviation 48.9 fL (36.4-46.3); Red Blood Count 2.73 M/uL (4.7-6.1); White Blood Count 9.81 K/uL (4.8-10.8)
--- NOTE | 2021-01-20 08:18 | Hospitalist Progress Note ---
Date of Service January 20, 2021 Assessment & Plan (1) Acute blood loss anemia: * s/p 3 units total PRBC * Repeat hgb 8.0 today but has been on IVF 1/2NS @100cc/hr to be completed after 2L this morning * Will order 1 additional unit PRBC this morning and repeat h/h this afternoon 17:00 * Plans for repeat I&D on 01/[address] Hammer -- will need continued I&D and wound vac exchange in OR until able to be done at bedside prior to d/c per primary service reports * Continue to monitor blood counts * Transfuse threshold Hgb aim > 9 given ongoing need for operation and coronary artery disease. (2) Abscess of left thigh: * Discontinued vancomycin since Group B strep growing in both wound cultures. * ID consultation ordered by primary team for further antibiotic selection therefore will defer further antibiotic selection to ID -- pending * Continued on Unasyn alone for now (day 3 of therapy) * Plans for repeat I&D on 01/[address] Hammer -- will need continued I&D and wound vac exchange in OR until able to be done at bedside prior to d/c per pr imary service reports * Will need wound care at d/c (3) Cellulitis of left thigh: * As above. (4) Complex sleep apnea syndrome: * Not on treatment for this. 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 * No known recurrence of his atrial fibrillation since this time. (7) DVT prophylaxis: * SCDs. * Chemical prophylaxis deferred due to acute hemorrhage as above Admission and Anticipated Discharge Date Admission Date: January 17, 2021 Supervising Physician Co-Signing Physician Notes KRISHNA Supervision Note: I did not personally see or examine the patient today, but I verified all parson points of KRISHNA Gilliam's assessment and plan with the following exceptions/additions: None Subjective Patient evaluated this morning. Doing well. Eating/drinking. Passing gas but no BM -- bowel regimen added per primary service. Getting 1 unit of blood. Plans for NPO after midnight tomorrow for OR on 01/22. Patient unsure if plans for tomorrow vs Wednesday but will check with ortho. Had ID consultation this morning and he states "she is going to get in contact with Dr. Hammer" stating that she had never seen a case like this. No fever, chills, chest pain, shortness of breath, abdominal pain, nausea or vomiting at this time. Review of Systems Review of Systems: All systems reviewed & are unremarkable except as noted in HPI & below Physical Exam Constitutional: well developed and well nourished; no acute distress general pallor Eyes: + anicteric sclerae; normal pupil size ENMT: external ear and nose normal, oropharynx normal Neck: trachea midline, no thyromegaly Respiratory: normal respiratory effort, lungs clear to auscultation Cardiovascular: RRR, no murmur, no edema Gastrointestinal (Abdomen): normal bowel sounds, soft, nontender, no hepatosplenomegaly Musculoskeletal: dressing and KATTY wrap to LEFT thigh Large pocket appreciated -- slightly tender to medial aspect of wound wound vac with brown/bloody drainage noted NVI DP, PT pulses bilaterally Skin: warm, dry Neurologic: moves all extremities and awake; not confused Psychiatric: A+Ox3, euthymic affect Results & Data Results & Data ([facility]) Vital Signs (Past 12 Hours) Vital Signs Temp Pulse Resp BP Pulse Ox 01/20/21 04:05 36.8 C 53 L 16 116/50 L 92 01/19/21 23:02 36.9 C 62 16 102/49 L 93 Laboratory Results 01/20/21 01/20/21 01/19/21 Range/Units 08:00 08:00 20:07 WBC 9.81 (4.8-10.8) K/uL RBC 2.73 L (4.7-6.1) M/uL Hgb 8.0 L (14.0-18.0) g/dL Hct 23.2 L (42-52) % MCV 85.0 (80-100) fL MCH 29.3 (25-34) pg MCHC 34.5 (32-36) g/dL RDW Std Deviation 48.9 H (36.4-46.3) fL RDW Coeff of Coral 15.6 H (11.5-14.5) % Plt Count 127 L (130-400) K/uL MPV 9.9 (7.4-10.4) fL Immature Gran % (Auto) 0.5 % Neut % (Auto) 79.0 % Lymph % (Auto) 10.2 % Wheeler % (Auto) 10.3 % Eos % (Auto) 0.0 % Baso % (Auto) 0.0 % Neut # (Auto) 7.75 H (1.4-6.5) K/uL Lymph # (Auto) 1.00 L (1.2-3.4) K/uL Wheeler # (Auto) 1.01 H (0.11-0.59) K/uL Eos # (Auto) 0.00 (0-0.5) K/uL Baso # (Auto) 0.00 (0-0.2) K/uL Immature Gran # (Auto) 0.05 H (0.00-0.02) K/uL Sodium 136 (136-145) mmol/L Potassium 4.4 (3.5-5.1) mmol/L Chloride 107 (98-107) mmol/L Carbon Dioxide 24 (21-32) mmol/L Anion Gap 5.0 (3-11) BUN 31 H (7-18) mg/dl Creatinine 0.85 (0.6-1.4) mg/dl Est Cr Clr Drug Dosing 67.0 ml/min Est GFR ( Amer) 94.0 Est GFR (Non-Af Amer) 81.1 BUN/Creatinine Ratio 36.7 H (10-20) Glucose 139 H (70-99) mg/dl POC Glucose 251 H (70-99) mg/dl Calcium 8.2 L (8.5-10.1) mg/dl Blood Type Antibody Screen Crossmatch 01/19/21 01/19/21 01/18/21 Range/Units 18:38 11:52 16:37 WBC (4.8-10.8) K/uL RBC (4.7-6.1) M/uL Hgb 8.9 L 8.2 L (14.0-18.0) g/dL Hct 26.3 L (42-52) % MCV (80-100) fL MCH (25-34) pg MCHC (32-36) g/dL RDW Std Deviation (36.4-46.3) fL RDW Coeff of Coral (11.5-14.5) % Plt Count (130-400) K/uL MPV (7.4-10.4) fL Immature Gran % (Auto) % Neut % (Auto) % Lymph % (Auto) % Wheeler % (Auto) % Eos % (Auto) % Baso % (Auto) % Neut # (Auto) (1.4-6.5) K/uL Lymph # (Auto) (1.2-3.4) K/uL Wheeler # (Auto) (0.11-0.59) K/uL Eos # (Auto) (0-0.5) K/uL Baso # (Auto) (0-0.2) K/uL Immature Gran # (Auto) (0.00-0.02) K/uL Sodium (136-145) mmol/L Potassium (3.5-5.1) mmol/L Chloride (98-107) mmol/L Carbon Dioxide (21-32) mmol/L Anion Gap (3-11) BUN (7-18) mg/dl Creatinine (0.6-1.4) mg/dl Est Cr Clr Drug Dosing ml/min Est GFR ( Amer) Est GFR (Non-Af Amer) BUN/Creatinine Ratio (10-20) Glucose (70-99) mg/dl POC Glucose (70-99) mg/dl Calcium (8.5-10.1) mg/dl Blood Type O Positive Antibody Screen NEGATIVE Crossmatch See Detail PG Care Time/CCT Total # of Minutes Spent Total Time Spent with Patient: Total time spent is greater than 50% in coordination of care (as documented) at patient's floor/unit and/or counseling patient: Coding Level of Care Code 99736 Subseq Hosp Care Lvl 3 Diagnoses Acute blood loss anemia D62 Abscess of left thigh L02.416 Cellulitis of left thigh L03.116 Complex sleep apnea syndrome G47.31 CAD (coronary artery disease) I25.10 Paroxysmal atrial fibrillation I48.0 DVT prophylaxis Z29.9
[2021-01-20] MEDS ORDERED: SODIUM CHLORIDE 0.9% 250 ML IV PRN (08:21)
[2021-01-20] MEDS: MULTIVITAMIN TAB PO SCH (08:27)
[2021-01-20] MEDS: DOCUSATE SODIUM 100 MG CAP PO SCH ×2 (08:27→21:00)
[2021-01-20 08:41] LABS: BUN Creatinine Ratio 36.7 (10-20); Calcium 8.2 mg/dl (8.5-10.1); Est GFR (Non-African American) 81.1; Potassium 4.4 mmol/L (3.5-5.1)
[2021-01-20 10:16] LABS: Estimated Average Glucose 131 mg/dl; Hemoglobin A1C 6.2 % (4.5-5.6)
--- NOTE | 2021-01-20 10:43 | Orthopedic Progress Note ---
Date of Service January 20, 2021 Assessment & Plan (1) Abscess of left thigh: S/P I and D left thigh abscess 01-17-21 S/P I and D left thigh abscess and placement of wound vac 01-19-21 *ID consulted-cultures pending, continue current IV Antibiotics *Medicine service following *Hgb 8 this am. Seen by medicine. 1 unit of blood being given. Hgb ordered to be repeated this afternoon. Continue to follow. *PT/OT--DC bedrest. DC knee immobilizer. OOB with walker, WBAT. ankle pumps, SLRs, knee motion. *Continue current regimen for pain. ice prn. *Continue SCDs for DVT prophylaxis. holding asa and plavix secondary to acute blood loss anemia *Plan for I and D and wound vac exchange on 01-22-21. NPO p midnight order placed. Present on Admission?: Yes Admission and Anticipated Discharge Date Admission Date: January 17, 2021 Subjective Seen this AM with Dr Hammer. Pt is comfortable. Pain controlled. No chest pain, lightheadedness or shortness of breath. No fever or chills. Has been on bed rest. No issues with wound vac. Some bloody drainage noted in cannister. Receiving another unit of blood. Physical Exam Physical Exam: Appears less pale. Better color in face. Alert and Oriented x 3. Left thigh wound vac intact. NV intact B LE. 1+ pulses left DP and PT pulses. Sensation intact to light touch. Brisk capillary refill. 5/5 EHL, TA, gastroc strength. Able to do SLR. 0-90 left knee AROM. B calves soft. B SCDS donned. Results & Data ([facility]) Vital Signs (Past 12 Hours) Vital Signs Temp Pulse Pulse Pulse Resp BP BP 01/20/21 10:17 36.8 C 66 16 106/51 L 01/20/21 09:43 36.9 C 67 17 116/57 L 01/20/21 09:31 36.8 C 62 18 108/42 L 01/20/21 09:18 36.8 C 61 18 123/52 L 01/20/21 09:15 36.8 C 61 18 123/52 L 01/20/21 09:12 36.8 C 61 18 123/52 L 01/20/21 04:05 36.8 C 53 L 16 116/50 L 01/19/21 23:02 36.9 C 62 16 102/49 L Pulse Ox 01/20/21 10:17 93 01/20/21 09:43 91 01/20/21 09:31 92 01/20/21 09:18 01/20/21 09:15 01/20/21 09:12 01/20/21 04:05 92 01/19/21 23:02 93 Laboratory Results 01/20/21 01/20/21 01/20/21 Range/Units 08:00 08:00 08:00 WBC 9.81 (4.8-10.8) K/uL RBC 2.73 L (4.7-6.1) M/uL Hgb 8.0 L (14.0-18.0) g/dL Hct 23.2 L (42-52) % MCV 85.0 (80-100) fL MCH 29.3 (25-34) pg MCHC 34.5 (32-36) g/dL RDW Std Deviation 48.9 H (36.4-46.3) fL RDW Coeff of Coral 15.6 H (11.5-14.5) % Plt Count 127 L (130-400) K/uL MPV 9.9 (7.4-10.4) fL Immature Gran % (Auto) 0.5 % Neut % (Auto) 79.0 % Lymph % (Auto) 10.2 % [place] % (Auto) 10.3 % Eos % (Auto) 0.0 % Baso % (Auto) 0.0 % Neut # (Auto) 7.75 H (1.4-6.5) K/uL Lymph # (Auto) 1.00 L (1.2-3.4) K/uL [place] # (Auto) 1.01 H (0.11-0.59) K/uL Eos # (Auto) 0.00 (0-0.5) K/uL Baso # (Auto) 0.00 (0-0.2) K/uL Immature Gran # (Auto) 0.05 H (0.00-0.02) K/uL Sodium 136 (136-145) mmol/L Potassium 4.4 (3.5-5.1) mmol/L Chloride 107 (98-107) mmol/L Carbon Dioxide 24 (21-32) mmol/L Anion Gap 5.0 (3-11) BUN 31 H (7-18) mg/dl Creatinine 0.85 (0.6-1.4) mg/dl Est Cr Clr Drug Dosing 67.0 ml/min Est GFR ( Amer) 94.0 Est GFR (Non-Af Amer) 81.1 BUN/Creatinine Ratio 36.7 H (10-20) Glucose 139 H (70-99) mg/dl POC Glucose (70-99) mg/dl Estimat Average Glucose 131 mg/dl Hemoglobin A1c 6.2 H (4.5-5.6) % Calcium 8.2 L (8.5-10.1) mg/dl Blood Type Antibody Screen Crossmatch 01/19/21 01/19/21 01/19/21 Range/Units 20:07 18:38 11:52 WBC (4.8-10.8) K/uL RBC (4.7-6.1) M/uL Hgb 8.9 L 8.2 L (14.0-18.0) g/dL Hct 26.3 L (42-52) % MCV (80-100) fL MCH (25-34) pg MCHC (32-36) g/dL RDW Std Deviation (36.4-46.3) fL RDW Coeff of Coral (11.5-14.5) % Plt Count (130-400) K/uL MPV (7.4-10.4) fL Immature Gran % (Auto) % Neut % (Auto) % Lymph % (Auto) % [place] % (Auto) % Eos % (Auto) % Baso % (Auto) % Neut # (Auto) (1.4-6.5) K/uL Lymph # (Auto) (1.2-3.4) K/uL [place] # (Auto) (0.11-0.59) K/uL Eos # (Auto) (0-0.5) K/uL Baso # (Auto) (0-0.2) K/uL Immature Gran # (Auto) (0.00-0.02) K/uL Sodium (136-145) mmol/L Potassium (3.5-5.1) mmol/L Chloride (98-107) mmol/L Carbon Dioxide (21-32) mmol/L Anion Gap (3-11) BUN (7-18) mg/dl Creatinine (0.6-1.4) mg/dl Est Cr Clr Drug Dosing ml/min Est GFR ( Amer) Est GFR (Non-Af Amer) BUN/Creatinine Ratio (10-20) Glucose (70-99) mg/dl POC Glucose 251 H (70-99) mg/dl Estimat Average Glucose mg/dl Hemoglobin A1c (4.5-5.6) % Calcium (8.5-10.1) mg/dl Blood Type Antibody Screen Crossmatch 01/18/21 Range/Units 16:37 WBC (4.8-10.8) K/uL RBC (4.7-6.1) M/uL Hgb (14.0-18.0) g/dL Hct (42-52) % MCV (80-100) fL MCH (25-34) pg MCHC (32-36) g/dL RDW Std Deviation (36.4-46.3) fL RDW Coeff of Coral (11.5-14.5) % Plt Count (130-400) K/uL MPV (7.4-10.4) fL Immature Gran % (Auto) % Neut % (Auto) % Lymph % (Auto) % [place] % (Auto) % Eos % (Auto) % Baso % (Auto) % Neut # (Auto) (1.4-6.5) K/uL Lymph # (Auto) (1.2-3.4) K/uL [place] # (Auto) (0.11-0.59) K/uL Eos # (Auto) (0-0.5) K/uL Baso # (Auto) (0-0.2) K/uL Immature Gran # (Auto) (0.00-0.02) K/uL Sodium (136-145) mmol/L Potassium (3.5-5.1) mmol/L Chloride (98-107) mmol/L Carbon Dioxide (21-32) mmol/L Anion Gap (3-11) BUN (7-18) mg/dl Creatinine (0.6-1.4) mg/dl Est Cr Clr Drug Dosing ml/min Est GFR ( Amer) Est GFR (Non-Af Amer) BUN/Creatinine Ratio (10-20) Glucose (70-99) mg/dl POC Glucose (70-99) mg/dl Estimat Average Glucose mg/dl Hemoglobin A1c (4.5-5.6) % Calcium (8.5-10.1) mg/dl Blood Type O Positive Antibody Screen NEGATIVE Crossmatch See Detail
[2021-01-20] MEDS ORDERED: VANCOMYCIN TROUGH ONE (11:30)
[2021-01-20] MEDS ORDERED: SODIUM CHLORIDE 0.45 % 1,000 ML IV SCH (18:30)
[2021-01-20 19:16] LABS: Hematocrit (blood only) 27.6 % (42-52); Hemoglobin 9.5 g/dL (14.0-18.0); Mean Corpuscular Hemoglobin 29.2 pg (25-34); Mean Corpuscular Hgb Conc 34.4 g/dL (32-36); Mean Corpuscular Volume 84.9 fL (80-100); Mean Platelet Volume 10.6 fL (7.4-10.4); Nucleated RBC # (auto) 0.04 K/uL (0-0); Nucleated RBC % (auto) 0.4 %; Platelet Count 150 K/uL (130-400); RDW Coefficient of Variation 15.8 % (11.5-14.5); RDW Standard Deviation 49.3 fL (36.4-46.3); Red Blood Count 3.25 M/uL (4.7-6.1); White Blood Count 12.39 K/uL (4.8-10.8)
[2021-01-20] MEDS: POLYETHYLENE (MIRALAX) 17 GM PACK PO SCH (19:53)
[2021-01-20] MEDS: SENNA 8.6 MG TAB PO SCH (21:00)
[2021-01-20] MEDS: ROSUVASTATIN CALCIUM 10 MG TAB PO SCH (21:01)
[2021-01-21] MEDS: AMPICILLIN/SULBACTAM SOD 3,000 MG in 0.9 % SODIUM CHLORIDE 100 ML IV SCH ×3 (05:36→18:13)
--- NOTE | 2021-01-21 08:30 | Hospitalist Progress Note ---
Date of Service January 21, 2021 Assessment & Plan (1) Acute blood loss anemia: * s/p 4 units total PRBC * Repeat h/h stable 9.4/27.8 after 1 unit PRBC 01/20, on fluids as well for another 1L * Plans for repeat I&D on 01/[address] Hammer -- will need continued I&D and wound vac exchange in OR until able to be done at bedside prior to d/c per primary service reports * Continue to monitor blood counts * Transfuse threshold Hgb aim > 9 given ongoing need for operation and coronary artery disease. (2) Abscess of left thigh: * Discontinued vancomycin since Group B strep growing in both wound cultures. * ID consultation ordered by primary team for further antibiotic selection therefore will defer further antibiotic selection to ID -- continue Unasyn while inpatient with plans for Augmentin for 2-3 weeks at discharge (on day 4 of Unasyn * Plans for repeat I&D on 01/[address] Hammer -- will need continued I&D and wound vac exchange in OR until able to be done at bedside prior to d/c per primary service reports * Will need wound care at d/c (3) Cellulitis of left thigh: * As above. (4) Complex sleep apnea syndrome: * Not on treatment for this. 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 * No known recurrence of his atrial fibrillation since this time. * TSH wnl (7) DVT prophylaxis: * SCDs. * Chemical prophylaxis deferred due to acute hemorrhage as above Dispo: NPO after midnight for OR tomorrow with Dr. Hammer Admission and Anticipated Discharge Date Admission Date: January 17, 2021 Supervising Physician Co-Signing Physician Notes PA Supervision Note: I did not personally see or examine the patient today, but I verified all parson points of KRISHNA Gilliam's assessment and plan with the following exceptions/additions: None Subjective Patient evaluated this morning. Doing well. Mild discomfort but no pain. Worse with movement/palpation of medial aspect. Eating/drinking without issue. Plans for OR tomorrow. Passing gas more today but still no BM -- currently drinking miralax. No fever, chills, chest pain shortness of breath, abdominal pain, nausea or vomiting at this time. Questions/concerns addressed. Review of Systems Review of Systems: All systems reviewed & are unremarkable except as noted in HPI & below Physical Exam Constitutional: well developed and well nourished; no acute distress Eyes: + anicteric sclerae; normal pupil size ENMT: external ear and nose normal, oropharynx normal Neck: trachea midline, no thyromegaly Respiratory: normal respiratory effort, lungs clear to auscultation Cardiovascular: RRR, no murmur, no edema Gastrointestinal (Abdomen): normal bowel sounds, soft, nontender, no hepatosplenomegaly Musculoskeletal: dressing and KATTY wrap to LEFT thigh Large pocket appreciated -- slightly tender to medial aspect of wound wound vac with brown/bloody drainage noted NVI DP, PT pulses bilaterally Skin: cool, dry Neurologic: moves all extremities and awake; not confused Psychiatric: A+Ox3, euthymic affect Genitourinary: NO Blount Results & Data Results & Data ([facility]) Vital Signs (Past 12 Hours) Vital Signs Temp Pulse Pulse Resp BP Pulse Ox 01/21/21 07:55 108/58 L 01/21/21 07:48 36.6 C 63 16 115/49 L 95 01/20/21 22:39 36.6 C 56 L 20 134/65 96 Laboratory Results 01/21/21 01/21/21 01/20/21 Range/Units 08:13 08:13 16:58 WBC 12.17 H 12.39 H (4.8-10.8) K/uL RBC 3.29 L 3.25 L (4.7-6.1) M/uL Hgb 9.4 L 9.5 L (14.0-18.0) g/dL Hct 27.8 L 27.6 L (42-52) % MCV 84.5 84.9 (80-100) fL MCH 28.6 29.2 (25-34) pg MCHC 33.8 34.4 (32-36) g/dL RDW Std Deviation 49.4 H 49.3 H (36.4-46.3) fL RDW Coeff of Coral 16.0 H 15.8 H (11.5-14.5) % Plt Count 152 150 (130-400) K/uL MPV 10.2 10.6 H (7.4-10.4) fL Absolute Nucleated RBC 0.04 H (0-0) K/uL Nucleated RBC % (auto) 0.4 % Sodium 137 (136-145) mmol/L Potassium 3.8 (3.5-5.1) mmol/L Chloride 108 H (98-107) mmol/L Carbon Dioxide 24 (21-32) mmol/L Anion Gap 5.0 (3-11) BUN 31 H (7-18) mg/dl Creatinine 0.91 (0.6-1.4) mg/dl Est Cr Clr Drug Dosing 62.6 ml/min Est GFR ( Amer) 90.6 Est GFR (Non-Af Amer) 78.2 BUN/Creatinine Ratio 33.7 H (10-20) Glucose 100 H (70-99) mg/dl Estimat Average Glucose mg/dl Hemoglobin A1c (4.5-5.6) % Calcium 8.4 L (8.5-10.1) mg/dl TSH 2.490 (0.300-4.500) uIu/ml Blood Type Antibody Screen Crossmatch 01/20/21 01/18/21 Range/Units 08:00 16:37 WBC (4.8-10.8) K/uL RBC (4.7-6.1) M/uL Hgb (14.0-18.0) g/dL Hct (42-52) % MCV (80-100) fL MCH (25-34) pg MCHC (32-36) g/dL RDW Std Deviation (36.4-46.3) fL RDW Coeff of Coral (11.5-14.5) % Plt Count (130-400) K/uL MPV (7.4-10.4) fL Absolute Nucleated RBC (0-0) K/uL Nucleated RBC % (auto) % Sodium (136-145) mmol/L Potassium (3.5-5.1) mmol/L Chloride (98-107) mmol/L Carbon Dioxide (21-32) mmol/L Anion Gap (3-11) BUN (7-18) mg/dl Creatinine (0.6-1.4) mg/dl Est Cr Clr Drug Dosing ml/min Est GFR ( Amer) Est GFR (Non-Af Amer) BUN/Creatinine Ratio (10-20) Glucose (70-99) mg/dl Estimat Average Glucose 131 mg/dl Hemoglobin A1c 6.2 H (4.5-5.6) % Calcium (8.5-10.1) mg/dl TSH (0.300-4.500) uIu/ml Blood Type O Positive Antibody Screen NEGATIVE Crossmatch See Detail PG Care Time/CCT Total # of Minutes Spent Total Time Spent with Patient: Total time spent is greater than 50% in coordination of care (as documented) at patient's floor/unit and/or counseling patient: Coding Level of Care Code 39791 Subseq Hosp Care Lvl 2 Diagnoses Acute blood loss anemia D62 Abscess of left thigh L02.416 Cellulitis of left thigh L03.116 Complex sleep apnea syndrome G47.31 CAD (coronary artery disease) I25.10 Paroxysmal atrial fibrillation I48.0 DVT prophylaxis Z29.9
[2021-01-21 08:39] LABS: Hematocrit (blood only) 27.8 % (42-52); Hemoglobin 9.4 g/dL (14.0-18.0); Mean Corpuscular Hemoglobin 28.6 pg (25-34); Mean Corpuscular Hgb Conc 33.8 g/dL (32-36); Mean Corpuscular Volume 84.5 fL (80-100); Mean Platelet Volume 10.2 fL (7.4-10.4); Platelet Count 152 K/uL (130-400); RDW Standard Deviation 49.4 fL (36.4-46.3); Red Blood Count 3.29 M/uL (4.7-6.1); White Blood Count 12.17 K/uL (4.8-10.8)
[2021-01-21 09:07] LABS: BUN Creatinine Ratio 33.7 (10-20); Calcium 8.4 mg/dl (8.5-10.1); Creatinine Clr Calc Pharmacy 62.6 ml/min; Est GFR (African American) 90.6; Est GFR (Non-African American) 78.2; Potassium 3.8 mmol/L (3.5-5.1)
[2021-01-21 09:17] LABS: Thyroid Stimulating Hormone 2.49 uIu/ml (0.300-4.500)
[2021-01-21] MEDS: MULTIVITAMIN TAB PO SCH (09:33)
[2021-01-21] MEDS: POLYETHYLENE (MIRALAX) 17 GM PACK PO SCH (09:33)
[2021-01-21] MEDS: DOCUSATE SODIUM 100 MG CAP PO SCH ×2 (09:33→20:34)
--- NOTE | 2021-01-21 13:32 | Anesthesiology Consultation ---
Date of Service January 21, 2021 Assessment & Plan (1) Encounter for pre-operative examination: Chart Review Chart Review: Acceptable Risk for Surgery and Patient NOT seen in Pre Admission Testing Consults Requested none History Surgery Operation Date: 01/17/21 20:30 Proposed Procedures p Incision and Drainage Extremity(Left) - Isael Hammer MD Operation Date: 01/19/21 07:30 Proposed Procedures p Incision and Drainage Extremity - Isael Hammer MD Operation Date: 01/22/21 07:15 Proposed Procedures p Replacing Medium Silver Graulfoam Wound Vac & Catridge - Isael Hammer MD Operation Date: 01/22/21 07:15 Proposed Procedures p Replacing Medium Silver Graulfoam Wound Vac and Cartridge Thigh Left - Isael Hammer MD Operation Date: 01/22/21 07:30 Proposed Procedures p Incision and Drainage left thigh, wound vac exchange with silver granufoam(Left) - Isael Hammer MD Height/Weight Height: 5 ft 9 in Weight: 73.4 kg Allergies Allergy/AdvReac Type Severity Reaction Status Date / Time No Known Drug Allergies Allergy Verified 01/17/21 19:02 onion AdvReac Verified 01/18/21 10:56 Medications Home Medications Medication Instructions Recorded Confirmed Last Taken aspirin 81 mg tablet,delayed 81 mg PO DAILY tab 05/31/19 01/17/21 01/17/21 release coenzyme Q10 200 mg capsule 200 mg PO DAILY cap 05/31/19 01/17/21 01/17/21 multivitamin 1 tab PO DAILY 05/31/19 01/17/21 01/17/21 tadalafil 20 mg tablet 20 mg PO DAILY PRN #18 tab 08/25/19 01/17/21 Unknown clopidogrel 75 mg tablet 75 mg PO DAILY #90 tab 03/11/20 01/17/21 01/17/21 rosuvastatin 10 mg PO HS 01/17/21 01/17/21 01/16/21 Active Medications Generic Name Dose Route Start Last Admin Trade Name Freq PRN Reason Stop Dose Admin Acetaminophen 1,000 mg 01/17/21 23:12 01/18/21 15:53 Acetaminophen 500 Mg Tab PO 02/16/21 23:11 1,000 mg Q8 PRN Administration Pain or Fever Docusate Sodium 100 mg 01/18/21 09:00 01/21/21 09:33 Docusate Sodium 100 Mg Cap PO 02/17/21 08:59 100 mg BID CLARA Administration Ampicillin Sodium/Sulbactam 108 mls @ 216 mls/hr 01/18/21 00:45 01/21/21 12:50 Sodium 3,000 mg/ Sodium IV 01/25/21 00:44 Infused Chloride Q6 CLARA Infusion Multivitamins 1 tab 01/19/21 09:00 01/21/21 09:33 Multivitamin Tab PO 02/18/21 08:59 1 tab QAM CLARA Administration Polyethylene Glycol 17 gm 01/20/21 18:45 01/21/21 09:33 Polyethylene (Miralax) 17 Gm Pack PO 02/19/21 18:44 17 gm DAILY CLARA Administration Rosuvastatin Calcium 10 mg 01/18/21 21:00 01/20/21 21:01 Rosuvastatin Calcium 10 Mg Tab PO 02/17/21 20:59 10 mg HS CLARA Administration Sennosides 17.2 mg 01/18/21 21:00 01/20/21 21:00 Senna 8.6 Mg Tab PO 02/17/21 20:59 17.2 mg HS CLARA Administration Tramadol HCl 50 - 100 mg 01/17/21 23:12 01/18/21 18:37 Tramadol Hcl 50 Mg Tablet PO 02/16/21 23:11 50 mg Q4H PRN Administration Pain & Pre PT NPO Date Last Intake of Fluids: 01/17/21 Time Last Intake of Fluids: 13:00 Date Last Intake of Solids: 01/17/21 Time Last Intake of Solids: 13:00 Past Medical History Medical History (Updated 01/21/21 @ 13:32 by Bandar Kimbrough MD) Anemia Bilateral tinnitus CAD (coronary artery disease) Diverticulosis Foot pain Generalized osteoarthritis of multiple sites Hearing decreased Hearing loss Hematoma of left thigh Hematoma of left thigh History of pelvic fracture History of pericarditis Hyperlipidemia Internal hemorrhoids Paroxysmal atrial fibrillation Pericardial tamponade Pre-diabetes Prostate cancer Sensorineural hearing loss (SNHL) of both ears SNHL (sensorineural hearing loss) Tinnitus Past Family History Family History Sister Breast cancer Father Alcoholism Cirrhosis Denies family history of Prostate cancer Myocardial infarction Colorectal cancer Past Surgical History Surgical History H/O cardiac catheterization H/O colonoscopy with polypectomy H/O prostatectomy History of heart artery stent History of pelvic surgery Hx of foot surgery left Hx of tonsillectomy Status post creation of pericardial window Social History Smoking Status: Never smoker Do You Dip or Chew Tobacco: No Hx Alcohol Use: Yes Alcohol type: hard liquor alcohol intake frequency: holidays/special occasions only Hx Substance Use: No substance use type: does not use Physical Exam Vital Signs Last Vital Signs Temp 36.6 C 01/21/21 07:48 Pulse 63 01/21/21 07:48 Resp 16 01/21/21 07:48 BP 108/58 L 01/21/21 07:55 Pulse Ox 95 01/21/21 07:48 Testing Laboratory Results 01/21/21 08:13 01/21/21 08:13 PT 11.8 Seconds (9.0-12.0) 01/18/21 20:28 INR 1.2 (0.9-1.1) H 01/18/21 20:28 APTT 30.2 Seconds (21.0-31.0) 01/18/21 20:28 Hemoglobin A1c 6.2 % (4.5-5.6) H 01/20/21 08:00 Blood Type O Positive 01/18/21 16:37 Antibody Screen NEGATIVE 01/18/21 16:37 01/17/21 21:30 Gram Stain - Final Thigh,Left Aerobic and Anaerobic Culture - Preliminary Group B Beta Strep 01/17/21 16:45 Gram Stain - Final Thigh,Left Wound Culture - Final Group B Beta Strep 01/18/21 01:23 Aerobic Blood Culture - Preliminary Blood No growth in Aerobic bottle after 48 hours. Anaerobic Blood Culture - Final 01/18/21 01:31 Aerobic Blood Culture - Preliminary Blood No growth in Aerobic bottle after 48 hours. Anaerobic Blood Culture - Final Electrocardiogram Date: 01/17/21 Findings: + NSR @ (63) 1st degree AV block with PACs, low voltage QRS Chest X-Ray Date: 01/17/21 IMPRESSION: Cardiomegaly and emphysema with no acute cardiopulmonary abnormality. Echocardiogram Date: 06/21/20 LV size, thickness and function are normal RA is mild to mod dilated
--- NOTE | 2021-01-21 16:53 | Progress Note ---
Date of Service January 21, 2021 Assessment & Plan (1) Acute blood loss anemia: Present on Admission?: No (2) Abscess of left thigh: Present on Admission?: Yes (3) Mass of left thigh: Pathology pending. ID recs noted. Vanco discontinued. Continue Unasyn while here in the hospital and then eventually switched to Augmentin. Plan is to go to the operating room tomorrow for dressing change under anesthesia or sedation. Will need to come back Wednesday and Wednesday until there is some wound healing and less discomfort is likely. I will be out Wednesday and Wednesday and one of my colleagues will do the VAC changes. Informed consent obtained. N.p.o. Present on Admission?: Yes Admission and Anticipated Discharge Date Admission Date: January 17, 2021 Subjective No problems. Up walking in the hallway. No significant pain. Feels well. Constipated. Physical Exam Physical Exam: Wound VAC intact with no significant swelling. No evidence of erythema or infection. Knee motion 0-100 with an intact straight leg raise. Dorsalis pedis is 1+ strength is 5 out of 5. Results & Data ([facility]) Vital Signs (Past 12 Hours) Vital Signs Temp Pulse Resp BP Pulse Ox 01/21/21 16:14 36.7 C 56 L 16 113/57 L 94 01/21/21 07:55 108/58 L 01/21/21 07:48 36.6 C 63 16 115/49 L 95
[2021-01-21] MEDS ORDERED: MAGNESIUM CITRATE 296 ML/BTL PO STA (18:16)
[2021-01-21] MEDS: SENNA 8.6 MG TAB PO SCH (20:33)
[2021-01-21] MEDS: ROSUVASTATIN CALCIUM 10 MG TAB PO SCH (20:34)
[2021-01-22] MEDS: AMPICILLIN/SULBACTAM SOD 3,000 MG in 0.9 % SODIUM CHLORIDE 100 ML IV SCH ×5 (00:11→23:10)
[2021-01-22] MEDS ORDERED: fentaNYL citrate 100 MCG/2 ML VIAL ONE (06:48)
[2021-01-22] MEDS ORDERED: PROPOFOL IV EMULSION 10 MG/ML 20 ML VIAL IV ONE (06:49)
[2021-01-22] MEDS ORDERED: LIDOCAINE HCL 2% 2 ML VIAL/AMP(20MG/ML) INFIL ONE (06:49)
[2021-01-22] MEDS ORDERED: ONDANSETRON INJ 2 MG/ML 2 ML VIAL ONE (06:49)
--- NOTE | 2021-01-22 06:54 | History & Physical Bridge Note ---
Date of Service January 22, 2021 History & Physical Bridge Note I have examined the patient, reviewed the History & Physical and in the interval since the performance of the History & Physical I have noted the following changes of clinical significance: no changes noted
[2021-01-22] MEDS ORDERED: BUPIVACAINE 0.5 % 5 MG/1 ML MPF 30ML VIAL ONE (07:06)
[2021-01-22] MEDS ORDERED: BACITRACIN INJ 50,000 UNIT VIAL ONE (07:06)
[2021-01-22] MEDS ORDERED: LIDOCAINE HCL 1% 20 ML VIAL ONE (07:06)
--- NOTE | 2021-01-22 08:02 | Hospitalist Progress Note ---
Date of Service January 22, 2021 Assessment & Plan (1) Acute blood loss anemia: * s/p 4 units total PRBC * Repeat h/h stable 9.4/27.8 after 1 unit PRBC 01/20, on fluids as well for another 1L * Plans for repeat I&D on 01/[address] Hammer -- will need continued I&D and wound vac exchange in OR until able to be done at bedside prior to d/c per primary service reports * H/h up to 10.3/31.9 on AM labs. Iron studies with slightly low iron/bordeline with trans %sat low at 16 and transferrin 161. Would start oral iron supplementation tomorrow morning but continue bowel regimen to prevent constipation. Could also hold off for now and wait/monitor CBC as well * CBC in AM * Transfuse threshold Hgb aim > 9 given ongoing need for operation and coronary artery disease. (2) Abscess of left thigh: * Discontinued vancomycin since Group B strep growing in both wound cultures. * ID consultation ordered by primary team for further antibiotic selection therefore will defer further antibiotic selection to ID -- continue Unasyn while inpatient with plans for Augmentin for 2-3 weeks at discharge (on day 4 of Unasyn * Initial I&D on 01/19 * Repeat exchange on 01/22 for 200cc clot * Repeated again today and tolerated well. EBL 0. * --> Restarting ASA/Plavix in AM now that bleeding controlled and h/h improved * Continued exchanges planned for 01/24, 01/27, 01/29 (Wednesday/Wednesday to be completed by colleague) * Will need wound care at d/c (3) Cellulitis of left thigh: * As above. (4) Complex sleep apnea syndrome: * Not on treatment for this. 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 * No known recurrence of his atrial fibrillation since this time. * TSH wnl (7) DVT prophylaxis: * SCDs. * Chemical prophylaxis deferred due to acute hemorrhage as above but plans for resuming ASA and Plavix in AM after discussion with primary service Continue bowel regimen - + BM 01/21 Mag citrate added and he had BM yesterday after this continue daily prn to prevent constipation Dispo: continued inpatient stay until next week at least Hospitalist service will sign off at this time but will periodically chart check/see if needed. Contacted Dr. Hammer regarding sign off and to reach out if needs seen or for any questions/concerns. Admission and Anticipated Discharge Date Admission Date: January 17, 2021 Supervising Physician Co-Signing Physician Notes PA Supervision Note: I did not personally see or examine the patient today, but I verified all parson points of KRISHNA iGlliam's assessment and plan with the following exceptions/additions: None Subjective Patient evaluated this afternoon post-operatively. Doing well. VSS. Had BM last evening. Slightly out of it from anesthesia. Mild discomfort at site of drain from OR but tolerable and requesting to sleep currently. No fever, chills, chest pain, shortness of breath, abdominal pain, nausea or vomiting at this time. Repeat wound vac changes already for Wednesday and Wednesday and likely Wednesday discussed. Questions/concerns addressed at this time. Discussed would periodically check chart and see as needed. Also discussed this with Dr. Hammer and we will resume ASA/Plavix tomorrow morning. Review of Systems Review of Systems: All systems reviewed & are unremarkable except as noted in HPI & below Physical Exam Constitutional: well developed and well nourished; no acute distress Eyes: + anicteric sclerae; normal pupil size ENMT: external ear and nose normal, oropharynx normal Neck: trachea midline, no thyromegaly Respiratory: normal respiratory effort, lungs clear to auscultation Cardiovascular: RRR, no murmur, no edema Gastrointestinal (Abdomen): normal bowel sounds, soft, nontender, no hepatos plenomegaly Musculoskeletal: no cyanosis or clubbing, extremities motor strength 5/5 Skin: dressing and KATTY wrap to LEFT thigh Large pocket appreciated (decreased) -- slightly tender to medial aspect of wound moreso today than yesterday. no erythema/srrounding drainage wound vac with brown/bloody drainage noted NVI DP, PT pulses bilaterally 1+ Neurologic: moves all extremities and awake; not confused Psychiatric: A+Ox3, euthymic affect Lymphatic: no cervical or axillary lymphadenopathy Results & Data Results & Data ([facility]) Vital Signs (Past 12 Hours) Vital Signs Temp Pulse Resp BP Pulse Ox 01/22/21 06:49 36.9 C 52 L 18 124/58 L 93 Laboratory Results 01/22/21 01/22/21 01/22/21 Range/Units 12:45 12:45 10:01 WBC 9.57 (4.8-10.8) K/uL RBC 3.63 L (4.7-6.1) M/uL Hgb 10.3 L (14.0-18.0) g/dL Hct 31.9 L (42-52) % MCV 87.9 (80-100) fL MCH 28.4 (25-34) pg MCHC 32.3 (32-36) g/dL RDW Std Deviation 51.6 H (36.4-46.3) fL RDW Coeff of Coral 16.1 H (11.5-14.5) % Plt Count 195 (130-400) K/uL MPV 10.1 (7.4-10.4) fL Absolute Nucleated RBC 0.07 H (0-0) K/uL Nucleated RBC % (auto) 0.7 % Sodium 138 (136-145) mmol/L Potassium 3.8 (3.5-5.1) mmol/L Chloride 109 H (98-107) mmol/L Carbon Dioxide 23 (21-32) mmol/L Anion Gap 6.0 (3-11) BUN 25 H (7-18) mg/dl Creatinine 0.82 (0.6-1.4) mg/dl Est Cr Clr Drug Dosing 69.5 ml/min Est GFR ( Amer) 95.4 Est GFR (Non-Af Amer) 82.4 BUN/Creatinine Ratio 30.2 H (10-20) Glucose 103 H (70-99) mg/dl Calcium 8.2 L (8.5-10.1) mg/dl Iron (35-175) mcg/dl TIBC (250-450) mcg/dl Transferrin (200-360) mg/dl Transferrin % Sat (20-50) % Ferritin (8-388) ng/ml Vitamin B12 912 (193-986) pg/ml Folate > 20.00 (>5.38) ng/ml 01/22/21 Range/Units 10:01 WBC (4.8-10.8) K/uL RBC (4.7-6.1) M/uL Hgb (14.0-18.0) g/dL Hct (42-52) % MCV (80-100) fL MCH (25-34) pg MCHC (32-36) g/dL RDW Std Deviation (36.4-46.3) fL RDW Coeff of Coral (11.5-14.5) % Plt Count (130-400) K/uL MPV (7.4-10.4) fL Absolute Nucleated RBC (0-0) K/uL Nucleated RBC % (auto) % Sodium (136-145) mmol/L Potassium (3.5-5.1) mmol/L Chloride (98-107) mmol/L Carbon Dioxide (21-32) mmol/L Anion Gap (3-11) BUN (7-18) mg/dl Creatinine (0.6-1.4) mg/dl Est Cr Clr Drug Dosing ml/min Est GFR ( Amer) Est GFR (Non-Af Amer) BUN/Creatinine Ratio (10-20) Glucose (70-99) mg/dl Calcium (8.5-10.1) mg/dl Iron 37 (35-175) mcg/dl TIBC 266 (250-450) mcg/dl Transferrin 161 L (200-360) mg/dl Transferrin % Sat 16 L (20-50) % Ferritin 350.9 (8-388) ng/ml Vitamin B12 (193-986) pg/ml Folate (>5.38) ng/ml PG Care Time/CCT Total # of Minutes Spent Total Time Spent with Patient: Total time spent is greater than 50% in coordination of care (as documented) at patient's floor/unit and/or counseling patient: Coding Level of Care Code 92457 Subseq Hosp Care Lvl 3 Diagnoses Acute blood loss anemia D62 Abscess of left thigh L02.416 Cellulitis of left thigh L03.116 Complex sleep apnea syndrome G47.31 CAD (coronary artery disease) I25.10 Paroxysmal atrial fibrillation I48.0 DVT prophylaxis Z29.9
--- NOTE | 2021-01-22 08:07 | Operative Report ---
Post Operative Report Pre & Post Diagnosis Operation Date: 01/17/21 20:30 Pre-Op Diagnosis: INFECTION IN LEFT LEG Post-Op Diagnosis: INFECTION IN LEFT LEG Operation Date: 01/19/21 07:30 Pre-Op Diagnosis: Left thigh abscess Post-Op Diagnosis: Left thigh abscess Operation Date: 01/22/21 07:15 <No data on this case meets the specified criteria> Operation Date: 01/22/21 07:15 Pre-Op Diagnosis: Left thighWound status post excision Of abscess Post-Op Diagnosis: Same Operation Date: 01/22/21 07:30 <No data on this case meets the specified criteria> I identified the patient and participated in the time-out.: Yes Procedure Operation Date: 01/17/21 20:30 Actual Procedures p Incision and Drainage Left Thigh Abscess(Left) - Isael Hammer MD Operation Date: 01/19/21 07:30 Actual Procedures p Incision and Drainage of Left thigh (Left) - Isael Hammer MD Operation Date: 01/22/21 07:15 <No data on this case meets the specified criteria> Operation Date: 01/22/21 07:15 Actual Procedures p Replacing Medium Silver Graulfoam Wound Vac and Cartridge Thigh Left(Left) - Isael Hammer MD Operation Date: 01/22/21 07:30 <No data on this case meets the specified criteria> Surgeon Isael Hammer MD Fur Finisher Tailor Valentina Wiggins no resident or fellow available Estimated Blood Loss 0 Findings Consistent with Post-Op Diagnosis Specimens None Anesthesia Type General Complications none Disposition Accompanied Patient To Recovery: No Disposition: Recovery Room Indications Patient status post I&D of the left leg mass/abscess. Pathology pending. He has a large wound on the anterior thigh. This is perhaps 25 cm medial to lateral and 25 cm superior to inferior. Full-thickness from the subcu down to the fascia. He is taken to the OR for wound VAC exchange. Description of Procedure Informed consent obtained. Patient identified. He identified the operative site as the left thigh. I marked with my initials. Preoperative antibiotics were not necessary. He was taken to the operating room positioned supine. The anesthetic was administered. A preop surgical timeout was performed. The wound VAC was removed along with the sutures. ChloraPrep was used for the skin edges followed by skin prep. VAC sponges removed. There was no bleeding. Some minor areas of retained subcentimeter hematoma were debrided with a hemostat. There was early granulation present throughout the wound. A new silver impregnated sponge was applied. The sponge was cut in half to reduce its thickness. Overall volume of the wound is slightly less and the sponge was withdrawn from the edges slightly by a centimeter or 2 to help promote closure and healing. There was no purulence noted and no necrotic tissue. The incision on the anterior thigh was loosely reapproximated at its upper and lower ends with 2-0 nylon. Adaptic was applied over the surgical incision as well as the open wound medially. A bridging wound VAC was applied and deployed without incident. Patient was awakened from anesthesia taken recovery room in stable condition. There were no specimens or complications. Counts were correct. Blood loss was 0. At the conclusion the operation spoke to patient's informed her of my findings. Postop plan discussed. I will be out of town for a few days and one of my colleagues will assume his care and be able to exchange the wound VAC Wednesday and Wednesday. No erythema. I attest to the content of the Intraoperative Record and any orders documented therein. Any exceptions are noted below.
--- NOTE | 2021-01-22 08:08 | Operative Report ---
Post Operative Report Pre & Post Diagnosis Operation Date: 01/22/21 07:15 Pre-Op Diagnosis: Left thigh abscess Post-Op Diagnosis: Left thigh abscess I identified the patient and participated in the time-out.: Yes Procedure Operation Date: 01/22/21 07:15 Actual Procedures p Replacing Medium Silver Graulfoam Wound Vac and Cartridge Thigh Left(Left) - P ricardo Hammer MD Surgeon Isael Grace M.D. Casing Tester Valentina Wiggins PA-C; no fellow available. Estimated Blood Loss 0 Findings Consistent with Post-Op Diagnosis Specimens None Anesthesia Type MAC Complications none Description of Procedure Patient was taken to the operating room, placed under IV sedation. Time out p erformed, wound vac changed. Please see Dr. Hammer's operative report for further detail. Patient was awakened and taken to the recovery room in stable condition. I attest to the content of the Intraoperative Record and any orders documented therein. Any exceptions are noted below.
[2021-01-22] MEDS ORDERED: ONDANSETRON INJ 2 MG/ML 2 ML VIAL IV PRN (08:37)
[2021-01-22] MEDS ORDERED: fentaNYL citrate 100 MCG/2 ML VIAL IV PRN (08:37)
[2021-01-22] MEDS ORDERED: ePHEDrine sulfate 50 MG/ML AMP IV PRN (08:37)
[2021-01-22] MEDS ORDERED: ATROPINE SULFATE 0.1 MG/ML 10ML SYR IV PRN (08:37)
[2021-01-22] MEDS ORDERED: LABETALOL HCL IV 5 MG/ML 20ML IV PRN (08:37)
[2021-01-22] MEDS ORDERED: PHENYLEPHRINE 100MCG/ML 5ML SYR IV PRN (08:37)
--- NOTE | 2021-01-22 08:40 | Anesthesiology Progress Note ---
Date of Service January 22, 2021 Anesthesia Post Procedure Vital Signs Vital Signs: Temp Pulse Pulse Pulse Resp BP Pulse Ox 01/22/21 08:35 57 L 16 142/68 H 98 01/22/21 08:25 53 L 15 129/70 99 01/22/21 08:15 53 L 14 135/66 98 01/22/21 08:08 36.7 C 59 L 18 149/74 H 99 01/22/21 06:49 36.9 C 52 L 18 124/58 L 93 01/21/21 19:37 36.6 C 58 L 19 147/65 H 95 01/21/21 16:14 36.7 C 56 L 16 113/57 L 94 Pain Intensity Left Thigh: Pain Intensity: 0 Transfer of Care Handoff Completed per policy Notes Mental Status: alert / awake / arousable Patient Amnestic to Procedure: Yes Nausea / Vomiting: adequately controlled Pain: adequately controlled Airway Patency, RR, SpO2: stable & adequate BP & HR: stable & adequate Hydration State: stable & adequate Anesthetic Complications: no major complications apparent and Pt Satisfied with anesthetic care Notes: The patient is awake and comfortable. His vital signs are stable.
[2021-01-22] MEDS: POLYETHYLENE (MIRALAX) 17 GM PACK PO SCH (10:10)
[2021-01-22] MEDS: DOCUSATE SODIUM 100 MG CAP PO SCH ×4 (10:10→19:42)
[2021-01-22] MEDS: MULTIVITAMIN TAB PO SCH (10:11)
[2021-01-22 10:42] LABS: Ferritin 350.9 ng/ml (8-388)
[2021-01-22 11:20] LABS: Folate (Folic Acid) > 20.00 ng/ml (>5.38); Vitamin B12 912 pg/ml (193-986)
[2021-01-22 13:13] LABS: Hematocrit (blood only) 31.9 % (42-52); Hemoglobin 10.3 g/dL (14.0-18.0); Mean Corpuscular Hemoglobin 28.4 pg (25-34); Mean Corpuscular Hgb Conc 32.3 g/dL (32-36); Mean Corpuscular Volume 87.9 fL (80-100); Mean Platelet Volume 10.1 fL (7.4-10.4); Nucleated RBC # (auto) 0.07 K/uL (0-0); Nucleated RBC % (auto) 0.7 %; Platelet Count 195 K/uL (130-400); RDW Coefficient of Variation 16.1 % (11.5-14.5); RDW Standard Deviation 51.6 fL (36.4-46.3); Red Blood Count 3.63 M/uL (4.7-6.1); White Blood Count 9.57 K/uL (4.8-10.8)
[2021-01-22 13:41] LABS: BUN Creatinine Ratio 30.2 (10-20); Calcium 8.2 mg/dl (8.5-10.1); Creatinine Clr Calc Pharmacy 69.5 ml/min; Est GFR (African American) 95.4; Est GFR (Non-African American) 82.4; Potassium 3.8 mmol/L (3.5-5.1)
[2021-01-22] MEDS ORDERED: MAGNESIUM CITRATE 296 ML/BTL PO PRN (13:57)
[2021-01-22] MEDS: SODIUM CHLORIDE 0.9% 1000ML 1,000 ML IV SCH (15:35)
[2021-01-22] MEDS: traMADol HCL 50 MG TABLET PO PRN (15:38)
[2021-01-22] MEDS: SENNA 8.6 MG TAB PO SCH (19:41)
[2021-01-22] MEDS: ROSUVASTATIN CALCIUM 10 MG TAB PO SCH (19:42)
[2021-01-23] MEDS: SODIUM CHLORIDE 0.9% 1000ML 1,000 ML IV SCH (02:32)
[2021-01-23] MEDS: AMPICILLIN/SULBACTAM SOD 3,000 MG in 0.9 % SODIUM CHLORIDE 100 ML IV SCH ×4 (05:11→23:24)
[2021-01-23] MEDS: ASPIRIN 81 MG ECTAB PO SCH (08:23)
[2021-01-23] MEDS: CLOPIDOGREL BISULFATE 75 MG TAB PO SCH (08:24)
[2021-01-23] MEDS: MULTIVITAMIN TAB PO SCH (08:24)
[2021-01-23] MEDS: DOCUSATE SODIUM 100 MG CAP PO SCH ×3 (08:24→20:58)
[2021-01-23] MEDS: POLYETHYLENE (MIRALAX) 17 GM PACK PO SCH (08:24)
[2021-01-23] MEDS ORDERED: FUROSEMIDE 20 MG in SYRINGE 0 ML IV ONE (10:30)
[2021-01-23 10:34] LABS: BUN Creatinine Ratio 25.9 (10-20); Calcium 7.9 mg/dl (8.5-10.1); Creatinine Clr Calc Pharmacy 68.6 ml/min; Est GFR (Non-African American) 81.9; Potassium 4.1 mmol/L (3.5-5.1)
--- NOTE | 2021-01-23 12:21 | XRay Report ---
XR chest 1V portable CLINICAL HISTORY: assess for volume overload COMPARISON STUDY: Chest CT January 17, 2021. FINDINGS: Lung volumes are within normal limits. There is no pneumothorax. There are trace bilateral pleural fusions. There is no evidence for pulmonary edema. There is no consolidation. Cardiac size is normal. Mediastinal contours are normal. IMPRESSION: 1. No evidence for pulmonary edema. 2. Trace bilateral pleural effusions. ACT 112: Negative or not required by law. Electronically signed by: Jed Roberts M.D. 01/23/2021 12:20 PM
--- NOTE | 2021-01-23 12:56 | Hospitalist Progress Note ---
Date of Service January 23, 2021 Assessment & Plan (1) Acute blood loss anemia: * s/p 4 units total PRBC * Repeat h/h stable 9.4/27.8 after 1 unit PRBC 01/20, on fluids as well for another 1L * Repeat I&D on 01/[address] Hammer -- will need continued I&D and wound vac exchange in OR until able to be done at bedside prior to d/c per primary service reports * H/h up to 10.3/31.9 on AM labs. Iron studies with slightly low iron/bordeline with trans %sat low at 16 and transferrin 161. Would start oral iron supplementation tomorrow morning but continue bowel regimen to prevent constipation * CBC in AM now that back on ASA/Plavix * Transfuse threshold Hgb aim > 9 given ongoing need for operation and coronary artery disease. (2) Abscess of left thigh: * Discontinued vancomycin since Group B strep growing in both wound cultures. * ID consultation ordered by primary team for further antibiotic selection therefore will defer further antibiotic selection to ID -- continue Unasyn while inpatient with plans for Augmentin for 2-3 weeks at discharge (on day 4 of Unasyn * Initial I&D on 01/19 * Repeat exchange on 01/22 for 200cc clot * Repeated again 01/22 and tolerated well. EBL 0. * --> Restarted ASA/Plavix now that bleeding controlled and h/h improved * Continued exchanges planned for 01/24, 01/27, 01/29 (Wednesday/Wednesday to be completed by colleague) * Will need wound care at d/c (3) Cellulitis of left thigh: * As above. (4) Complex sleep apnea syndrome: * Not on treatment for this. 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 * No known recurrence of his atrial fibrillation since this time. * TSH wnl (7) Constipation: Continue bowel regimen - + BM 01/21 Mag citrate added and he had BM after this in the past No BM since yesterday and asked nursing to give another 1/2 bottle today Continue to monitor (8) Penile swelling: * Reported today, no erythema or pain reported * UO acceptable 0.68ml/kg/hr * Weight up 17lb from his usual reported * Lasix 20mg IV this morning * Urology consulted -- appreciate input * Monitor (9) DVT prophylaxis: * SCDs. * Chemical prophylaxis deferred due to acute hemorrhage as above but plans for resuming ASA and Plavix morning 01/23 after discussion with primary service Dispo: continued inpatient stay until next week at least Hospitalist service will sign off at this time but will periodically chart check/see if needed. Contacted Dr. Hammer regarding sign off and to reach out if needs seen or for any questions/concerns. Admission and Anticipated Discharge Date Admission Date: January 17, 2021 Supervising Physician Co-Signing Physician Notes PA Supervision Note: I did not personally see or examine the patient today, but I verified all parson points of KRISHNA Gilliam's assessment and plan with the following exceptions/additions: None Subjective Patient seen this afternoon. Doing well. Pain controlled. Worse with movement but tolerable. Wound vac functioning. Some smear to BM on toilet paper but no BM since yesterday morning. He had success with mag citrate in the past and will give dose today. He had not been straining due to concerns with pushing but discussed no bowel/back surgery and he is able to push as tolerated. Plans for repeat wound vac exchange tomorrow with Dr. Pemberton. Did have some penile swelling today. No erythema, no pain. No issues with urination. His weight is typically 160 and he is 176lb currently. Discussed dose of diuretics and would avoid further fluids. Discussed consulted Urology for eval but suspect from elevated weight. No LE edema or shortness of breath. BP lower side but asymptomatic at this time. No fever, chills, chest pain, abdominal pain, nausea, vomiting, dysuria at this time. Questions/concerns addressed at this time. Discussed will check on him on Wednesday unless any issues arise tomorrow. Also discussed with Dr. Hammer. Review of Systems Review of Systems: All systems reviewed & are unremarkable except as noted in HPI & below Physical Exam Constitutional: well developed and well nourished; no acute distress Eyes: + anicteric sclerae; normal pupil size ENMT: external ear and nose normal, oropharynx normal Neck: trachea midline, no thyromegaly Respiratory: normal respiratory effort, lungs clear to auscultation Cardiovascular: RRR, no murmur, no edema Gastrointestinal (Abdomen): normal bowel sounds, soft, nontender, no hepatosplenomegaly Musculoskeletal: Head/Neck/Chest: normocephalic and head atraumatic wound vac to L thigh, functioning draining brown/serous drainage NVI pulses palpable bilaterally Neurologic: moves all extremities and awake; not confused Psychiatric: A+Ox3, euthymic affect Genitourinary: penile edema, no erythema, no discharge non-tender to palpation, no masses Lymphatic: no cervical or axillary lymphadenopathy Results & Data Results & Data ([facility]) Vital Signs (Past 12 Hours) Vital Signs Temp Pulse Resp BP Pulse Ox 01/23/21 07:40 36.7 C 57 L 16 99/56 L 90 01/23/21 03:36 36.8 C 65 22 106/45 L 95 Laboratory Results 01/23/21 01/23/21 01/22/21 Range/Units 09:43 09:43 12:45 Sodium 138 138 (136-145) mmol/L Potassium 4.1 3.8 (3.5-5.1) mmol/L Chloride 108 H 109 H (98-107) mmol/L Carbon Dioxide 27 23 (21-32) mmol/L Anion Gap 3.0 6.0 (3-11) BUN 21 H 25 H (7-18) mg/dl Creatinine 0.83 0.82 (0.6-1.4) mg/dl Est Cr Clr Drug Dosing 68.6 69.5 ml/min Est GFR ( Amer) 95.0 95.4 Est GFR (Non-Af Amer) 81.9 82.4 BUN/Creatinine Ratio 25.9 H 30.2 H (10-20) Glucose 112 H 103 H (70-99) mg/dl Calcium 7.9 L 8.2 L (8.5-10.1) mg/dl Albumin 1.9 L (3.4-5.0) gm/dl PG Care Time/CCT Total # of Minutes Spent Total Time Spent with Patient: Total time spent is greater than 50% in coordination of care (as documented) at patient's floor/unit and/or counseling patient: Coding Level of Care Code 48172 Subseq Hosp Care Lvl 3 Diagnoses Acute blood loss anemia D62 Abscess of left thigh L02.416 Cellulitis of left thigh L03.116 Complex sleep apnea syndrome G47.31 CAD (coronary artery disease) I25.10 Paroxysmal atrial fibrillation I48.0 Constipation K59.00 Penile swelling N48.89 DVT prophylaxis Z29.9
--- NOTE | 2021-01-23 13:08 | Orthopedic Progress Note ---
Date of Service January 23, 2021 Assessment & Plan (1) Abscess of left thigh: Continue wound vac left thigh NPO p MN - plan for wound vac change in the OR tomorrow by Dr. Pemberton Ice and elevation PRN swelling/pain Allowed for full ROM left leg, WBAT. PT/OT as ordered Continue regular diet. Will continue to follow - Dr. Hammer present for today's visit. Admission and Anticipated Discharge Date Admission Date: January 17, 2021 Subjective Patient doing well, no complaints of pain in left thigh. Tolerating wound vac. Tolerating regular diet, going to bathroom normally. No post op issues. Physical Exam Physical Exam: Left thigh wound vac functioning. Mild distal edema left leg. Full ROM left ankle and left knee. Dorsalis pedis and posterior tibial pulses. Ambulates with slight antalgic gait. Results & Data ([facility]) Vital Signs (Past 12 Hours) Vital Signs Temp Pulse Resp BP Pulse Ox 01/23/21 07:40 36.7 C 57 L 16 99/56 L 90 01/23/21 03:36 36.8 C 65 22 106/45 L 95 Laboratory Results 01/23/21 01/23/21 01/22/21 Range/Units 09:43 09:43 12:45 WBC (4.8-10.8) K/uL RBC (4.7-6.1) M/uL Hgb (14.0-18.0) g/dL Hct (42-52) % MCV (80-100) fL MCH (25-34) pg MCHC (32-36) g/dL RDW Std Deviation (36.4-46.3) fL RDW Coeff of Coral (11.5-14.5) % Plt Count (130-400) K/uL MPV (7.4-10.4) fL Absolute Nucleated RBC (0-0) K/uL Nucleated RBC % (auto) % Sodium 138 138 (136-145) mmol/L Potassium 4.1 3.8 (3.5-5.1) mmol/L Chloride 108 H 109 H (98-107) mmol/L Carbon Dioxide 27 23 (21-32) mmol/L Anion Gap 3.0 6.0 (3-11) BUN 21 H 25 H (7-18) mg/dl Creatinine 0.83 0.82 (0.6-1.4) mg/dl Est Cr Clr Drug Dosing 68.6 69.5 ml/min Est GFR ( Amer) 95.0 95.4 Est GFR (Non-Af Amer) 81.9 82.4 BUN/Creatinine Ratio 25.9 H 30.2 H (10-20) Glucose 112 H 103 H (70-99) mg/dl Calcium 7.9 L 8.2 L (8.5-10.1) mg/dl Albumin 1.9 L (3.4-5.0) gm/dl 01/22/21 Range/Units 12:45 WBC 9.57 (4.8-10.8) K/uL RBC 3.63 L (4.7-6.1) M/uL Hgb 10.3 L (14.0-18.0) g/dL Hct 31.9 L (42-52) % MCV 87.9 (80-100) fL MCH 28.4 (25-34) pg MCHC 32.3 (32-36) g/dL RDW Std Deviation 51.6 H (36.4-46.3) fL RDW Coeff of Coral 16.1 H (11.5-14.5) % Plt Count 195 (130-400) K/uL MPV 10.1 (7.4-10.4) fL Absolute Nucleated RBC 0.07 H (0-0) K/uL Nucleated RBC % (auto) 0.7 % Sodium (136-145) mmol/L Potassium (3.5-5.1) mmol/L Chloride (98-107) mmol/L Carbon Dioxide (21-32) mmol/L Anion Gap (3-11) BUN (7-18) mg/dl Creatinine (0.6-1.4) mg/dl Est Cr Clr Drug Dosing ml/min Est GFR ( Amer) Est GFR (Non-Af Amer) BUN/Creatinine Ratio (10-20) Glucose (70-99) mg/dl Calcium (8.5-10.1) mg/dl Albumin (3.4-5.0) gm/dl Pathology Report: FINAL DIAGNOSIS Soft tissue, left thigh (incision and drainage of the extremity): - Necrotic skeletal muscle, fat necrosis, acute inflammation, hemorrhage, hemosiderin deposition, and broad sheets of reactive histiocytes are all seen. - No tumor seen. - See comment. Comment: The tissue submitted in this case consists of necrotic skeletal muscle, fibroadipose tissue and fibrous tissue. Extensive necrosis is seen. The sheets of histiocytes reveal anisonucleosis and nucleomegaly. An immunohistochemical stain for [id number] performed on block three confirms the histiocytic nature of these cells as this stain is diffusely and strongly positive. An immunohistochemical stain for cytokeratin on the same block fails to highlight any of the cells with nucleomegaly. Thus, these cells are simply reactive histiocytes. Please note that I discussed this case with Dr. Isael Hammer at 9:00 AM on January,. As well, please note that this case is reviewed by one of my colleagues in the Department of pathology and my colleague agrees with the rendered diagnosis. at 0906. Clinical History Left thigh lesion. Procedure performed: Incision and drainage of the extremity, left leg. Gross Description LEFT THIGH LESION The specimen is received in a container labeled left thigh lesion with the patient name. The specimen consists of multiple pieces of brown, yellow, red, and sargent tissue. The largest piece measures 10.0 x 5.0 x 6.0 cm. The remaining pieces, in aggregate, measure 6 cm in greatest dimension. All of the tissue is serially sectioned and lamellated tissue alternating in color and density is noted. A central cavity is identified and this may simply represent an abscess site. RPE six blocks. HK
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
--- NOTE | 2021-01-23 16:00 | Anesthesiology Consultation ---
Date of Service January 23, 2021 Assessment & Plan (1) Encounter for pre-operative examination: Chart Review Chart Review: Acceptable Risk for Surgery and Patient NOT seen in Pre Admission Testing Had same procedure done 01/22/21. Consults Requested none History Surgery Operation Date: 01/17/21 20:30 Proposed Procedures p Incision and Drainage Extremity(Left) - Isael Hammer MD Operation Date: 01/19/21 07:30 Proposed Procedures p Incision and Drainage Extremity - Isael Hammer MD Operation Date: 01/22/21 07:15 Proposed Procedures p Replacing Medium Silver Graulfoam Wound Vac & Catridge - Isael Hammer MD Operation Date: 01/22/21 07:15 Proposed Procedures p Replacing Medium Silver Graulfoam Wound Vac and Cartridge Thigh Left - Isael Hammer MD Operation Date: 01/22/21 07:30 Proposed Procedures p Incision and Drainage left thigh, wound vac exchange with silver granufoam(Left) - Isael Hammer MD Operation Date: 01/24/21 12:00 Proposed Procedures p Replacing Medium Silver Graulfoam Wound Vac and Cartridge Thigh Left - Magdy Jessica Pemberton MD Operation Date: 01/27/21 08:20 Proposed Procedures p Replacing Medium Silver Graulfoam Wound Vac and Cartridge Thigh Left - Magdy Jessica Pemberton MD Operation Date: 01/29/21 08:30 Proposed Procedures p Replacing Medium Silver Graulfoam Wound Vac and Cartridge Thigh Left - Isael Hammer MD Height/Weight Height: 5 ft 9 in Weight: 73.4 kg Allergies Allergy/AdvReac Type Severity Reaction Status Date / Time No Known Drug Allergies Allergy Verified 01/17/21 19:02 onion AdvReac Verified 01/18/21 10:56 Medications Home Medications Medication Instructions Recorded Confirmed Last Taken aspirin 81 mg tablet,delayed 81 mg PO DAILY tab 05/31/19 01/17/21 01/17/21 release coenzyme Q10 200 mg capsule 200 mg PO DAILY cap 05/31/19 01/17/21 01/17/21 multivitamin 1 tab PO DAILY 05/31/19 01/17/21 01/17/21 tadalafil 20 mg tablet 20 mg PO DAILY PRN #18 tab 08/25/19 01/17/21 Unknown clopidogrel 75 mg tablet 75 mg PO DAILY #90 tab 03/11/20 01/17/21 01/17/21 rosuvastatin 10 mg PO HS 01/17/21 01/17/21 01/16/21 Active Medications Generic Name Dose Route Start Last Admin Trade Name Beboq PRN Reason Stop Dose Admin Acetaminophen 1,000 mg 01/17/21 23:12 01/18/21 15:53 Acetaminophen 500 Mg Tab PO 02/16/21 23:11 1,000 mg Q8 PRN Administration Pain or Fever Aspirin 81 mg 01/23/21 09:00 01/23/21 08:23 Aspirin 81 Mg Ectab PO 02/22/21 08:59 81 mg QAM CLARA Administration Clopidogrel Bisulfate 75 mg 01/23/21 09:00 01/23/21 08:24 Clopidogrel Bisulfate 75 Mg Tab PO 02/22/21 08:59 75 mg QAM CLARA Administration Docusate Sodium 100 mg 01/18/21 09:00 01/23/21 08:24 Docusate Sodium 100 Mg Cap PO 02/17/21 08:59 100 mg BID CLARA Administration Docusate Sodium 100 mg 01/22/21 09:00 01/23/21 08:25 Docusate Sodium 100 Mg Cap PO 02/21/21 08:59 100 mg BID CLARA Administration Ampicillin Sodium/Sulbactam 108 mls @ 216 mls/hr 01/18/21 00:45 01/23/21 13:3 2 Sodium 3,000 mg/ Sodium IV 01/25/21 00:44 Infused Chloride Q6 CLARA Infusion Magnesium Citrate 148 ml 01/22/21 13:57 01/23/21 13:29 Magnesium Citrate 296 Ml/Btl PO 02/21/21 13:56 148 ml DAILY PRN Administration Constipation Multivitamins 1 tab 01/19/21 09:00 01/23/21 08:24 Multivitamin Tab PO 02/18/21 08:59 1 tab QAM CLARA Administration Polyethylene Glycol 17 gm 01/20/21 18:45 01/23/21 08:24 Polyethylene (Miralax) 17 Gm Pack PO 02/19/21 18:44 17 gm DAILY CLARA Administration Rosuvastatin Calcium 10 mg 01/18/21 21:00 01/22/21 19:42 Rosuvastatin Calcium 10 Mg Tab PO 02/17/21 20:59 10 mg HS CLARA Administration Sennosides 17.2 mg 01/18/21 21:00 01/22/21 19:41 Senna 8.6 Mg Tab PO 02/17/21 20:59 17.2 mg HS CLARA Administration Tramadol HCl 50 - 100 mg 01/17/21 23:12 01/22/21 15:38 Tramadol Hcl 50 Mg Tablet PO 02/16/21 23:11 50 mg Q4H PRN Administration Pain & Pre PT Past Medical History Medical History Anemia Bilateral tinnitus CAD (coronary artery disease) Diverticulosis Foot pain Generalized osteoarthritis of multiple sites Hearing decreased Hearing loss Hematoma of left thigh Hematoma of left thigh History of pelvic fracture History of pericarditis Hyperlipidemia Internal hemorrhoids Paroxysmal atrial fibrillation Pericardial tamponade Pre-diabetes Prostate cancer Sensorineural hearing loss (SNHL) of both ears SNHL (sensorineural hearing loss) Tinnitus Past Family History Family History Sister Breast cancer Father Alcoholism Cirrhosis Denies family history of Prostate cancer Myocardial infarction Colorectal cancer Past Surgical History Surgical History H/O cardiac catheterization H/O colonoscopy with polypectomy H/O prostatectomy History of heart artery stent History of pelvic surgery Hx of foot surgery left Hx of tonsillectomy Status post creation of pericardial window Social History Smoking Status: Never smoker Do You Dip or Chew Tobacco: No Hx Alcohol Use: Yes Alcohol type: hard liquor alcohol intake frequency: holidays/special occasions only Hx Substance Use: No substance use type: does not use Physical Exam Vital Signs Last Vital Signs Temp 36.9 C 01/23/21 15:39 Pulse 67 01/23/21 15:39 Resp 16 01/23/21 15:39 BP 107/57 L 01/23/21 15:39 Pulse Ox 96 01/23/21 15:39 Testing Laboratory Results 01/22/21 12:45 01/23/21 09:43 PT 11.8 Seconds (9.0-12.0) 01/18/21 20:28 INR 1.2 (0.9-1.1) H 01/18/21 20:28 APTT 30.2 Seconds (21.0-31.0) 01/18/21 20:28 Hemoglobin A1c 6.2 % (4.5-5.6) H 01/20/21 08:00 Blood Type O Positive 01/18/21 16:37 Antibody Screen NEGATIVE 01/18/21 16:37 01/17/21 21:30 Gram Stain - Final Thigh,Left Aerobic and Anaerobic Culture - Final Group B Beta Strep 01/18/21 01:23 Aerobic Blood Culture - Final Blood No growth in Aerobic bottle after 5 days. Anaerobic Blood Culture - Final 01/18/21 01:31 Aerobic Blood Culture - Final Blood No growth in Aerobic bottle after 5 days. Anaerobic Blood Culture - Final 01/17/21 16:45 Gram Stain - Final Thigh,Left Wound Culture - Final Group B Beta Strep Electrocardiogram Date: 01/17/21 Findings: + NSR @ (63) 1st degree AV block with PACs, low voltage QRS Chest X-Ray Date: 01/17/21 IMPRESSION: Cardiomegaly and emphysema with no acute cardiopulmonary abnormality. Echocardiogram Date: 06/21/20 LV size, thickness and function are normal RA is mild to mod dilated
[2021-01-23] MEDS: SENNA 8.6 MG TAB PO SCH (20:58)
[2021-01-23] MEDS: ROSUVASTATIN CALCIUM 10 MG TAB PO SCH (20:58)
[2021-01-24] MEDS: AMPICILLIN/SULBACTAM SOD 3,000 MG in 0.9 % SODIUM CHLORIDE 100 ML IV SCH ×4 (05:12→23:21)
[2021-01-24] MEDS: FERROUS SULFATE 325 MG TAB PO SCH (09:13)
[2021-01-24] MEDS: MULTIVITAMIN TAB PO SCH (09:13)
[2021-01-24] MEDS: CLOPIDOGREL BISULFATE 75 MG TAB PO SCH (09:15)
[2021-01-24] MEDS: ASPIRIN 81 MG ECTAB PO SCH (09:15)
[2021-01-24 11:06] LABS: Hematocrit (blood only) 28.4 % (42-52); Hemoglobin 9.5 g/dL (14.0-18.0); Mean Corpuscular Hemoglobin 28.9 pg (25-34); Mean Corpuscular Hgb Conc 33.5 g/dL (32-36); Mean Corpuscular Volume 86.3 fL (80-100); Mean Platelet Volume 9.3 fL (7.4-10.4); Platelet Count 242 K/uL (130-400); Red Blood Count 3.29 M/uL (4.7-6.1)
--- NOTE | 2021-01-24 11:07 | Orthopedic Progress Note ---
Date of Service January 24, 2021 Assessment & Plan (1) Abscess of left thigh: Continue wound vac left thigh NPO p MN - plan for wound vac change in the OR today by Dr. Pemberton Ice and elevation PRN swelling/pain Allowed for full ROM left leg, WBAT. PT/OT as ordered Will continue to follow I Dr. Pemberton, saw and examined the patient and agree with the above findings and plan of care. The informed consent was signed. Admission and Anticipated Discharge Date Admission Date: January 17, 2021 Subjective This 80-year-old male Seen today on the third floor. States he is doing fairly well and his pain is well controlled with p.o. pain medication. He states that he understands that he needs to have his wound VAC changed later this afternoon. Currently he denies chest pain, shortness breath, fever, chills, sweats, lethargy or significant weakness. Review of Systems Review of Systems: All systems reviewed & are unremarkable except as noted in Subjective Physical Exam Physical Exam: Left thigh: Wound VAC noted over the anterior surface of the left mid thigh is clean dry and intact. There is approximately 500 mL of clear blood-tinged fluid in the wound VAC machine canister. He is able to actively pe rform a straight leg raise. He can actively dorsi and plantarflex his foot. He can flex his knee from 0 to 90 degrees without difficulty. He does have some minimal tenderness to palpation over the anterior surface of the thigh circumferentially around the wound VAC pad. Otherwise, he is neurovascular intact left lower extremity. Results & Data ([facility]) Vital Signs (Past 12 Hours) Vital Signs Temp Pulse Resp BP Pulse Ox 01/24/21 08:56 36.7 C 60 18 131/72 95 Laboratory Results 01/24/21 01/24/21 01/23/21 Range/Units 10:47 10:47 09:43 WBC Pending RBC Pending Hgb Pending Hct Pending MCV Pending MCH Pending MCHC Pending Plt Count Pending Sodium Pending Potassium Pending Chloride Pending Carbon Dioxide Pending Anion Gap Pending BUN Pending Creatinine Pending Est Cr Clr Drug Dosing Pending Est GFR ( Amer) Pending Est GFR (Non-Af Amer) Pending BUN/Creatinine Ratio Pending Glucose Pending Calcium Pending Albumin 1.9 L (3.4-5.0) gm/dl
[2021-01-24 11:38] LABS: BUN Creatinine Ratio 27.1 (10-20); Calcium 7.9 mg/dl (8.5-10.1); Creatinine Clr Calc Pharmacy 75.9 ml/min; Est GFR (Non-African American) 85.4; Potassium 3.9 mmol/L (3.5-5.1)
[2021-01-24] MEDS ORDERED: fentaNYL citrate 100 MCG/2 ML VIAL ONE (12:02)
[2021-01-24] MEDS ORDERED: ePHEDrine sulfate 50 MG/ML AMP IV PRN (12:48)
[2021-01-24] MEDS ORDERED: ONDANSETRON INJ 2 MG/ML 2 ML VIAL IV PRN (12:48)
[2021-01-24] MEDS ORDERED: ATROPINE SULFATE 0.1 MG/ML 10ML SYR IV PRN (12:48)
[2021-01-24] MEDS ORDERED: fentaNYL citrate 100 MCG/2 ML VIAL IV PRN (12:48)
[2021-01-24] MEDS ORDERED: PROPOFOL IV EMULSION 10 MG/ML 20 ML VIAL IV ONE (13:21)
[2021-01-24] MEDS ORDERED: LIDOCAINE HCL 2% 2 ML VIAL/AMP(20MG/ML) INFIL ONE (13:21)
--- NOTE | 2021-01-24 13:42 | Post Operative Brief Note ---
Immediate Post Op Note v1 Date of Surgery January 24, 2021 Pre & Post Diagnosis Operation Date: 01/24/21 12:00 Pre-Op Diagnosis: Left thigh abscess, Woundvac Post-Op Diagnosis: Left thigh abscess, Woundvac I identified the patient and participated in the time-out.: Yes Procedure Operation Date: 01/24/21 12:00 Actual Procedures p Replacing Medium Silver Graulfoam Wound Vac and Cartridge Thigh Left(Left) - Magdy Pemberton MD Surgeon Magdy Pemberton MD Emergency Communications Dispatcher Pastor Barbour PA-C; no fellow available. Estimated Blood Loss 2 Findings Consistent with Post-Op Diagnosis Fluids 300 cc Drains Other (silver granufoam wound vac ) Anesthesia Type MAC Complications none
--- NOTE | 2021-01-24 13:45 | Operative Report ---
Post Operative Report Pre & Post Diagnosis Operation Date: 01/24/21 12:00 Pre-Op Diagnosis: Left thigh abscess, Woundvac Post-Op Diagnosis: Left thigh abscess, Woundvac I identified the patient and participated in the time-out.: Yes Procedure Operation Date: 01/24/21 12:00 Actual Procedures p Replacing Medium Silver Graulfoam Wound Vac and Cartridge Thigh Left(Left) - Magdy Pemberton MD Surgeon Magdy Pemberton MD Range Rider Pastor Barbour PA-C; no fellow available. Estimated Blood Loss 2 Findings See Below Length 13 cm x width 16 cm (undermined under skin), depth full thickness down to the muscle. small 2 cm wound medially connected to main wound. Muscle and skin edges looked viable, healthy, no evidence of infection. Fluids 300 cc Specimens n/a Anesthesia Type MAC Complications none Indications Patient status post I&D of the left leg mass/abscess by Dr. Hammer, who is out of town and I am covering. The patient has a large wound on the anterior thigh, full-thickness from the subcutaneous down to the muscle fascia, that is being treated with wound Vac. Informed consent obtained for planned return to OR for I&D, wound VAC exchange. Description of Procedure Pastor Barbour PA-C is assisting with positioning, retraction, and placement of the Wound Vac due to fellow not available. Description of Procedure The patient was taken to the Operating Room and after sufficient sedation was administered a multidisciplinary time-out was performed identifying my initials on the left limb as the correct and operative limb, the patient was placed in the supine position on the operating table. The patient is continue his antibiotic regime. The left lower leg was prepped and draped in the standard sterile fashion. Preoperative antibiotics were not necessary. The wound VAC was removed along with the sutures. The VAC sponges removed. There was no bleeding. There was no purulence noted and no necrotic tissue. The wound was irrigated with normal saline. There was early granulation present throughout the wound. A new silver impregnated sponge was applied. The sponge was cut in half to reduce its thickness. The sponge was placed to try and reduce the volume, but extended to the tract medially. Adaptic was applied over the surgical incision as well as the open wound medially. A bridging wound VAC was applied and deployed without incident. The patient was taken recovery room in stable condition. The sponge and needle counts were correct. POST-OP: Patient was re-admitted to the surgical floor. Plan to return 01/27/21 for repeat I&D with exchange the wound VAC. I attest to the content of the Intraoperative Record and any orders documented therein. Any exceptions are noted below.
--- NOTE | 2021-01-24 13:50 | Operative Report ---
Post Operative Report Pre & Post Diagnosis Operation Date: 01/17/21 20:30 Pre-Op Diagnosis: INFECTION IN LEFT LEG Post-Op Diagnosis: INFECTION IN LEFT LEG Operation Date: 01/19/21 07:30 Pre-Op Diagnosis: Left thigh abscess Post-Op Diagnosis: Left thigh abscess Operation Date: 01/22/21 07:15 <No data on this case meets the specified criteria> Operation Date: 01/22/21 07:15 Pre-Op Diagnosis: Left thigh abscess Post-Op Diagnosis: Left thigh abscess Operation Date: 01/22/21 07:30 <No data on this case meets the specified criteria> Operation Date: 01/24/21 12:00 Pre-Op Diagnosis: Left thigh abscess Post-Op Diagnosis: Left thigh abscess Operation Date: 01/27/21 12:50 <No data on this case meets the specified criteria> Operation Date: 01/29/21 08:30 <No data on this case meets the specified criteria> I identified the patient and participated in the time-out.: Yes Procedure Operation Date: 01/17/21 20:30 Actual Procedures p Incision and Drainage Left Thigh Abscess(Left) - sIael Hammer MD Operation Date: 01/19/21 07:30 Actual Procedures p Incision and Drainage of Left thigh (Left) - Isael Hammer MD Operation Date: 01/22/21 07:15 <No data on this case meets the specified criteria> Operation Date: 01/22/21 07:15 Actual Procedures p Replacing Medium Silver Graulfoam Wound Vac and Cartridge Thigh Left(Left) - Isael Hammer MD Operation Date: 01/22/21 07:30 <No data on this case meets the specified criteria> Operation Date: 01/24/21 12:00 Actual Procedures p Replacing Medium Silver Graulfoam Wound Vac and Cartridge Thigh Left(Left) - Magdy Pemberton MD Operation Date: 01/27/21 12:50 <No data on this case meets the specified criteria> Operation Date: 01/29/21 08:30 <No data on this case meets the specified criteria> Surgeon Magdy Pemberton MD [employer] Pastor Barbour PA-C; no fellow available. Estimated Blood Loss 2 Findings Consistent with Post-Op Diagnosis Specimens none Complications none Description of Procedure I assisted with application of wound vac from beginning to end of case. I attest to the content of the Intraoperative Record and any orders documented therein. Any exceptions are noted below.
--- NOTE | 2021-01-24 15:23 | Anesthesiology Progress Note ---
Date of Service January 24, 2021 Anesthesia Post Procedure Vital Signs Vital Signs: Temp Pulse Pulse Resp BP Pulse Ox 01/24/21 14:42 36.7 C 58 L 16 137/69 97 01/24/21 14:25 36.6 C 53 L 24 125/61 94 01/24/21 14:15 58 L 20 117/53 L 97 01/24/21 14:05 59 L 18 103/62 98 01/24/21 13:55 56 L 17 120/59 L 100 01/24/21 13:47 36.9 C 62 16 120/57 L 100 01/24/21 12:34 37 C 70 18 138/64 95 01/24/21 08:56 36.7 C 60 18 131/72 95 01/23/21 22:44 37 C 62 18 112/57 L 96 01/23/21 15:39 36.9 C 67 16 107/57 L 96 Pain Intensity Left Thigh: Pain Intensity: 1 Transfer of Care Handoff Completed per policy Notes Mental Status: alert / awake / arousable Patient Amnestic to Procedure: Yes Nausea / Vomiting: adequately controlled Pain: adequately controlled Airway Patency, RR, SpO2: stable & adequate BP & HR: stable & adequate Hydration State: stable & adequate Anesthetic Complications: no major complications apparent
[2021-01-24] MEDS: DOCUSATE SODIUM 100 MG CAP PO SCH ×2 (17:06→20:55)
[2021-01-24] MEDS: POLYETHYLENE (MIRALAX) 17 GM PACK PO SCH (17:07)
[2021-01-24] MEDS: ROSUVASTATIN CALCIUM 10 MG TAB PO SCH (20:55)
[2021-01-24] MEDS: SENNA 8.6 MG TAB PO SCH (20:55)
[2021-01-25 06:45] LABS: Basophils # (auto) 0.01 K/uL (0-0.2); Basophils % (auto) 0.1 %; Eosinophils # (auto) 0.24 K/uL (0-0.5); Eosinophils % (auto) 2.3 %; Hemoglobin 9.6 g/dL (14.0-18.0); Immature Granulocytes # (auto) 0.34 K/uL (0.00-0.02); Immature Granulocytes % (auto) 3.2 %; Lymphocytes # (auto) 1.44 K/uL (1.2-3.4); Lymphocytes % (auto) 13.6 %; Mean Corpuscular Hemoglobin 28.8 pg (25-34); Mean Corpuscular Hgb Conc 33.1 g/dL (32-36); Mean Corpuscular Volume 87.1 fL (80-100); Mean Platelet Volume 9.4 fL (7.4-10.4); Monocytes # (auto) 0.79 K/uL (0.11-0.59); Monocytes % (auto) 7.5 %; Neutrophils # (auto) 7.76 K/uL (1.4-6.5); Neutrophils % (auto) 73.3 %; Platelet Count 283 K/uL (130-400); RDW Coefficient of Variation 15.9 % (11.5-14.5); RDW Standard Deviation 49.7 fL (36.4-46.3); Red Blood Count 3.33 M/uL (4.7-6.1); White Blood Count 10.58 K/uL (4.8-10.8)
[2021-01-25 07:18] LABS: BUN Creatinine Ratio 20.5 (10-20); C Reactive Protein 7.53 mg/dl (0-0.29); Calcium 7.9 mg/dl (8.5-10.1); Creatinine Clr Calc Pharmacy 66.2 ml/min; Est GFR (African American) 93.6; Est GFR (Non-African American) 80.8; Potassium 4.2 mmol/L (3.5-5.1)
[2021-01-25 07:21] LABS: Albumin Globulin Ratio 0.7 (0.9-2); Bilirubin,Total 0.8 mg/dl (0.2-1)
--- NOTE | 2021-01-25 09:29 | Hospitalist Progress Note ---
Date of Service January 25, 2021 Assessment & Plan (1) Acute blood loss anemia: * s/p 4 units total PRBC * Repeat h/h stable 9.4/27.8 after 1 unit PRBC 01/20, on fluids as well for another 1L * Repeat I&D on 01/[address] Hammer * s/p wound vac exchange on 01/24, no issues and plans for repeat exchanges on 01/27 and 01/29 * Resumed ASA/Plavix on 01/23 * h/h 9.629 and stable. * Iron studies with slightly low iron/borderline with trans %sat low at 16 and transferrin 161. * Started on oral iron supplementation and would continue for acute time. Bowel regimen with mag citrate prn (success in past with 1/2 bottle as needed) * Continue to monitor blood counts Transfuse threshold Hgb aim > 8 given ongoing need for operation and coronary artery disease. No cp or shortness of breath (2) Abscess of left thigh: * Discontinued vancomycin since Group B strep growing in both wound cultures. * Initial I&D on 01/19 * Repeat exchange on 01/22 for 200cc clot * Repeated exchange 01/24 and tolerated well. EBL 0. * --> Restarted ASA/Plavix 01/23 as above now that bleeding controlled and h/h stable on repeat and starting iron supplementation as above * Plans for repeat exchanges in OR on 01/27 and 01/29 as above * ID consultation -- continue Unasyn while inpatient with plans for Augmentin for 2-3 weeks at discharge * CRP continues to trend down, 21.4 on admission -->> now 7.53 * Will need wound care at d/c (3) Cellulitis of left thigh: * As above. (4) Complex sleep apnea syndrome: * Not on treatment for this. * He is not on CPAP (5) CAD (coronary artery disease): * Acute MA with drug-eluting stent to proximal LAD in February 2015 and was maintained on ASA/Plavix [employer] * Holding ASA, clopidogrel in the setting of acute hemorrhage following initial I&D on admission with blood clot 200cc * --> RESUMED 01/23 as above * Continuing rosuvastatin (6) Paroxysmal atrial fibrillation: * Solitary episode in the setting of acute MA therefore not on anticoagulation. * No known recurrence of his atrial fibrillation since this time. * TSH wnl (7) Constipation: * Continue bowel regimen - + BM 01/21 * Mag citrate added and he had BM after this in the past * 1/2 bottle with BMs 01/24 and 01/25, normal and brown, moderate * Continue bowel regimen * Mag citrate 1/2 bottle prn * Continue to monitor (8) Penile swelling: * Reported 01/23, no erythema or pain reported * UO acceptable * Lasix 20mg IV provided on 01/23 * Decreased edema, no longer present * Urology on consult (9) DVT prophylaxis: * SCDs. * Chemical prophylaxis deferred due to acute hemorrhage as above but plans for resuming ASA and Plavix morning 01/23 after discussion with primary service Dispo: continued inpatient stay until next week at least Hospitalist service will sign off at this time. Will periodically chart check/see as needed. Discussed with Dr. Hammer last week and today with Dr. Pemberton. Seen on 01/25 and will plan on seeing on 01/27 after wound vac exchange or sooner if needed. Please call with any questions/concerns or need to see sooner. Admission and Anticipated Discharge Date Admission Date: January 17, 2021 Supervising Physician Co-Signing Physician Notes PA Supervision Note: I did not personally see or examine the patient today, but I verified all parson points of KRISHNA Gilliam's assessment and plan with the following exceptions/additions: None Subjective Patient evaluated this morning. Doing well. Minimal discomfort but very tolerable. Eating/drinking no issues. Weight closer to baseline. Less penile swelling. No pain or issues voiding. Moving his bowels -- discussed mag citrate available prn as that has worked in the past if he notices he needs something further moving forward. Plans for wound vac exchange on Wednesday and hopeful for d/c sometime later next week fi wound continues to make improvements -- sponge cut in half yesterday. Review of Systems Review of Systems: All systems reviewed & are unremarkable except as noted in HPI & below Physical Exam Constitutional: well developed and well nourished; no acute distress Eyes: + anicteric sclerae; normal pupil size ENMT: external ear and nose normal, oropharynx normal Neck: trachea midline, no thyromegaly Respiratory: normal respiratory effort, lungs clear to auscultation Cardiovascular: RRR, no murmur, no edema Gastrointestinal (Abdomen): normal bowel sounds, soft, nontender, no hepatosplenomegaly Musculoskeletal: no cyanosis or clubbing, extremities motor strength 5/5 Head/Neck/Chest: normocephalic and head atraumatic Skin: cool, dry wound vac to L thigh with covering and medial opening from procedure no erythema, intact brownish colored fluid to wound vac, functioning NVI pulses palpable bilaterally Neurologic: moves all extremities and awake; not confused Psychiatric: A+Ox3, euthymic affect Genitourinary: decreased penile edema, no erythema or discharge noted Lymphatic: no cervical or axillary lymphadenopathy Results & Data Results & Data ([facility]) Vital Signs (Past 12 Hours) Vital Signs Temp Pulse Resp BP Pulse Ox 01/25/21 08:29 36.6 C 55 L 18 120/63 97 01/25/21 04:07 36.9 C 60 14 145/68 H 96 01/24/21 23:20 36.5 C 63 14 150/63 H 99 Laboratory Results 01/25/21 01/25/21 01/24/21 Range/Units 05:43 05:43 10:47 WBC 10.58 (4.8-10.8) K/uL RBC 3.33 L (4.7-6.1) M/uL Hgb 9.6 L (14.0-18.0) g/dL Hct 29.0 L (42-52) % MCV 87.1 (80-100) fL MCH 28.8 (25-34) pg MCHC 33.1 (32-36) g/dL RDW Std Deviation 49.7 H (36.4-46.3) fL RDW Coeff of [place] 15.9 H (11.5-14.5) % Plt Count 283 (130-400) K/uL MPV 9.4 (7.4-10.4) fL Immature Gran % (Auto) 3.2 % Neut % (Auto) 73.3 % Lymph % (Auto) 13.6 % [place] % (Auto) 7.5 % Eos % (Auto) 2.3 % Baso % (Auto) 0.1 % Neut # (Auto) 7.76 H (1.4-6.5) K/uL Lymph # (Auto) 1.44 (1.2-3.4) K/uL [place] # (Auto) 0.79 H (0.11-0.59) K/uL Eos # (Auto) 0.24 (0-0.5) K/uL Baso # (Auto) 0.01 (0-0.2) K/uL Immature Gran # (Auto) 0.34 H (0.00-0.02) K/uL Sodium 140 139 (136-145) mmol/L Potassium 4.2 3.9 (3.5-5.1) mmol/L Chloride 110 H 110 H (98-107) mmol/L Carbon Dioxide 25 24 (21-32) mmol/L Anion Gap 5.0 5.0 (3-11) BUN 18 20 H (7-18) mg/dl Creatinine 0.86 0.75 (0.6-1.4) mg/dl Est Cr Clr Drug Dosing 66.2 75.9 ml/min Est GFR ( Amer) 93.6 99.0 Est GFR (Non-Af Amer) 80.8 85.4 BUN/Creatinine Ratio 20.5 H 27.1 H (10-20) Glucose 97 98 (70-99) mg/dl Calcium 7.9 L 7.9 L (8.5-10.1) mg/dl Total Bilirubin 0.8 (0.2-1) mg/dl AST 18 (15-37) U/L ALT 27 (12-78) U/L Alkaline Phosphatase 47 (45-117) U/L C-Reactive Protein 7.53 H (0-0.29) mg/dl Total Protein 5.0 L (6.4-8.2) gm/dl Albumin 2.0 L (3.4-5.0) gm/dl Globulin 3.0 (2.5-4.0) gm/dl Albumin/Globulin Ratio 0.7 L (0.9-2) 01/24/21 Range/Units 10:47 WBC 10.90 H (4.8-10.8) K/uL RBC 3.29 L (4.7-6.1) M/uL Hgb 9.5 L (14.0-18.0) g/dL Hct 28.4 L (42-52) % MCV 86.3 (80-100) fL MCH 28.9 (25-34) pg MCHC 33.5 (32-36) g/dL RDW Std Deviation 49.0 H (36.4-46.3) fL RDW Coeff of [place] 16.0 H (11.5-14.5) % Plt Count 242 (130-400) K/uL MPV 9.3 (7.4-10.4) fL Immature Gran % (Auto) % Neut % (Auto) % Lymph % (Auto) % [place] % (Auto) % Eos % (Auto) % Baso % (Auto) % Neut # (Auto) (1.4-6.5) K/uL Lymph # (Auto) (1.2-3.4) K/uL [place] # (Auto) (0.11-0.59) K/uL Eos # (Auto) (0-0.5) K/uL Baso # (Auto) (0-0.2) K/uL Immature Gran # (Auto) (0.00-0.02) K/uL Sodium (136-145) mmol/L Potassium (3.5-5.1) mmol/L Chloride (98-107) mmol/L Carbon Dioxide (21-32) mmol/L Anion Gap (3-11) BUN (7-18) mg/dl Creatinine (0.6-1.4) mg/dl Est Cr Clr Drug Dosing ml/min Est GFR ( Amer) Est GFR (Non-Af Amer) BUN/Creatinine Ratio (10-20) Glucose (70-99) mg/dl Calcium (8.5-10.1) mg/dl Total Bilirubin (0.2-1) mg/dl AST (15-37) U/L ALT (12-78) U/L Alkaline Phosphatase (45-117) U/L C-Reactive Protein (0-0.29) mg/dl Total Protein (6.4-8.2) gm/dl Albumin (3.4-5.0) gm/dl Globulin (2.5-4.0) gm/dl Albumin/Globulin Ratio (0.9-2) PG Care Time/CCT Total # of Minutes Spent Total Time Spent with Patient: Total time spent is greater than 50% in coordination of care (as documented) at patient's floor/unit and/or counseling patient: Coding Level of Care Code 48590 Subseq Hosp Care Lvl 3 Diagnoses Acute blood loss anemia D62 Abscess of left thigh L02.416 Cellulitis of left thigh L03.116 Complex sleep apnea syndrome G47.31 CAD (coronary artery disease) I25.10 Paroxysmal atrial fibrillation I48.0 Constipation K59.00 Penile swelling N48.89 DVT prophylaxis Z29.9
[2021-01-25] MEDS: FERROUS SULFATE 325 MG TAB PO SCH (09:41)
[2021-01-25] MEDS: CLOPIDOGREL BISULFATE 75 MG TAB PO SCH (09:41)
[2021-01-25] MEDS: MULTIVITAMIN TAB PO SCH (09:41)
[2021-01-25] MEDS: ASPIRIN 81 MG ECTAB PO SCH (09:41)
--- NOTE | 2021-01-25 09:42 | Orthopedic Progress Note ---
Date of Service January 25, 2021 Assessment & Plan (1) Abscess of left thigh: HD # 9, L thigh infection, s/p multiple I&D and wound Vac placement for large left thigh wound. POD # 1 s/p I&D and wound Vac exchange left thigh. Continue wound vac left thigh Continue Antibiotics Continue diet. NPO p MN - plan for wound vac change in the OR 01/27/[address] Pemberton Ice and elevation PRN swelling/pain Allowed for full ROM left leg, WBAT. PT/OT as ordered Appreciate medicine input, who will continue to monitor chart. Continue covering for Dr. Hammer who is out of town. Admission and Anticipated Discharge Date Admission Date: January 17, 2021 Subjective Doing alright Review of Systems Review of Systems: All systems reviewed & are unremarkable except as noted in HPI & below Physical Exam Physical Exam: LLE: Wound Vac in place, functioning well. Neurovascularly intact. Results & Data ([facility]) Vital Signs (Past 12 Hours) Vital Signs Temp Pulse Resp BP Pulse Ox 01/25/21 08:29 36.6 C 55 L 18 120/63 97 01/25/21 04:07 36.9 C 60 14 145/68 H 96 01/24/21 23:20 36.5 C 63 14 150/63 H 99 Laboratory Results 01/25/21 01/25/21 01/24/21 Range/Units 05:43 05:43 10:47 WBC 10.58 (4.8-10.8) K/uL RBC 3.33 L (4.7-6.1) M/uL Hgb 9.6 L (14.0-18.0) g/dL Hct 29.0 L (42-52) % MCV 87.1 (80-100) fL MCH 28.8 (25-34) pg MCHC 33.1 (32-36) g/dL RDW Std Deviation 49.7 H (36.4-46.3) fL RDW Coeff of [place] 15.9 H (11.5-14.5) % Plt Count 283 (130-400) K/uL MPV 9.4 (7.4-10.4) fL Immature Gran % (Auto) 3.2 % Neut % (Auto) 73.3 % Lymph % (Auto) 13.6 % [place] % (Auto) 7.5 % Eos % (Auto) 2.3 % Baso % (Auto) 0.1 % Neut # (Auto) 7.76 H (1.4-6.5) K/uL Lymph # (Auto) 1.44 (1.2-3.4) K/uL [place] # (Auto) 0.79 H (0.11-0.59) K/uL Eos # (Auto) 0.24 (0-0.5) K/uL Baso # (Auto) 0.01 (0-0.2) K/uL Immature Gran # (Auto) 0.34 H (0.00-0.02) K/uL Sodium 140 139 (136-145) mmol/L Potassium 4.2 3.9 (3.5-5.1) mmol/L Chloride 110 H 110 H (98-107) mmol/L Carbon Dioxide 25 24 (21-32) mmol/L Anion Gap 5.0 5.0 (3-11) BUN 18 20 H (7-18) mg/dl Creatinine 0.86 0.75 (0.6-1.4) mg/dl Est Cr Clr Drug Dosing 66.2 75.9 ml/min Est GFR ( Amer) 93.6 99.0 Est GFR (Non-Af Amer) 80.8 85.4 BUN/Creatinine Ratio 20.5 H 27.1 H (10-20) Glucose 97 98 (70-99) mg/dl Calcium 7.9 L 7.9 L (8.5-10.1) mg/dl Total Bilirubin 0.8 (0.2-1) mg/dl AST 18 (15-37) U/L ALT 27 (12-78) U/L Alkaline Phosphatase 47 (45-117) U/L C-Reactive Protein 7.53 H decreasing (0-0.29) mg/dl Total Protein 5.0 L (6.4-8.2) gm/dl Albumin 2.0 L (3.4-5.0) gm/dl Globulin 3.0 (2.5-4.0) gm/dl Albumin/Globulin Ratio 0.7 L (0.9-2) 01/24/21 Range/Units 10:47 WBC 10.90 H decreasing (4.8-10.8) K/uL RBC 3.29 L (4.7-6.1) M/uL Hgb 9.5 L (14.0-18.0) g/dL Hct 28.4 L (42-52) % MCV 86.3 (80-100) fL MCH 28.9 (25-34) pg MCHC 33.5 (32-36) g/dL RDW Std Deviation 49.0 H (36.4-46.3) fL RDW Coeff of [place] 16.0 H (11.5-14.5) % Plt Count 242 (130-400) K/uL MPV 9.3 (7.4-10.4) fL Immature Gran % (Auto) % Neut % (Auto) % Lymph % (Auto) % [place] % (Auto) % Eos % (Auto) % Baso % (Auto) % Neut # (Auto) (1.4-6.5) K/uL Lymph # (Auto) (1.2-3.4) K/uL [place] # (Auto) (0.11-0.59) K/uL Eos # (Auto) (0-0.5) K/uL Baso # (Auto) (0-0.2) K/uL Immature Gran # (Auto) (0.00-0.02) K/uL Sodium (136-145) mmol/L Potassium (3.5-5.1) mmol/L Chloride (98-107) mmol/L Carbon Dioxide (21-32) mmol/L Anion Gap (3-11) BUN (7-18) mg/dl Creatinine (0.6-1.4) mg/dl Est Cr Clr Drug Dosing ml/min Est GFR ( Amer) Est GFR (Non-Af Amer) BUN/Creatinine Ratio (10-20) Glucose (70-99) mg/dl Calcium (8.5-10.1) mg/dl Total Bilirubin (0.2-1) mg/dl AST (15-37) U/L ALT (12-78) U/L Alkaline Phosphatase (45-117) U/L C-Reactive Protein (0-0.29) mg/dl Total Protein (6.4-8.2) gm/dl Albumin (3.4-5.0) gm/dl Globulin (2.5-4.0) gm/dl Albumin/Globulin Ratio (0.9-2)
[2021-01-25] MEDS: DOCUSATE SODIUM 100 MG CAP PO SCH ×2 (09:45→20:51)
[2021-01-25] MEDS: POLYETHYLENE (MIRALAX) 17 GM PACK PO SCH (09:45)
[2021-01-25 12:05] LABS: Appearance Urine Clear (Clear); Bilirubin Urine Negative (Negative); Blood Urine Negative (Negative); Color Urine Yellow; Glucose Urine UA Negative (Negative); Ketones Urine Negative (Negative); Leukocyte Esterase Urine Negative (Negative); Nitrite Urine Negative (Negative); Protein Urine Negative (Negative); Specific Gravity Urine 1.014 (1.000-1.030); Urobilinogen Urine Negative (Negative); pH Urine 7.5 (4.5-7.5)
[2021-01-25] MEDS: AMPICILLIN/SULBACTAM SOD 3,000 MG in 0.9 % SODIUM CHLORIDE 100 ML IV SCH ×3 (13:53→23:18)
[2021-01-25] MEDS: SENNA 8.6 MG TAB PO SCH (20:51)
[2021-01-25] MEDS: ROSUVASTATIN CALCIUM 10 MG TAB PO SCH (20:51)
[2021-01-26] MEDS: AMPICILLIN/SULBACTAM SOD 3,000 MG in 0.9 % SODIUM CHLORIDE 100 ML IV SCH ×4 (05:17→23:09)
--- NOTE | 2021-01-26 07:58 | Orthopedic Progress Note ---
Date of Service January 26, 2021 Assessment & Plan (1) Abscess of left thigh: HD # 10, L thigh infection, s/p multiple I&D and wound Vac placement for large left thigh wound. POD # 2 s/p I&D and wound Vac exchange left thigh. Continue wound vac left thigh Continue Antibiotics Continue diet. NPO p MN tonight - plan for wound vac change in the OR 01/27/2021. Ice and elevation PRN swelling/pain Allowed for full ROM left leg, WBAT. PT/OT as ordered Appreciate medicine input, who will continue to monitor chart. Informed Consent signed. Continue covering for Dr. Hammer who is out of town. Admission and Anticipated Discharge Date Admission Date: January 17, 2021 Subjective Doing well Review of Systems Review of Systems: All systems reviewed & are unremarkable except as noted in HPI & below Physical Exam Physical Exam: LLE: Wound Vac in place, functioning well. Neurovascularly intact. Calf soft non-tender. Results & Data ([facility]) Vital Signs (Past 12 Hours) Vital Signs Temp Pulse Resp BP Pulse Ox 01/25/21 23:14 37.0 C 62 14 129/65 97 Laboratory Results 01/25/21 Range/Units Unknown Urine Color Yellow Urine Appearance Clear (Clear) Urine pH 7.5 (4.5-7.5) Ur Specific [place] 1.014 (1.000-1.030) Urine Protein Negative (Negative) Urine Glucose (UA) Negative (Negative) Urine Ketones Negative (Negative) Urine Blood Negative (Negative) Urine Nitrite Negative (Negative) Urine Bilirubin Negative (Negative) Urine Urobilinogen Negative (Negative) Ur Leukocyte Esterase Negative (Negative)
[2021-01-26] MEDS: MULTIVITAMIN TAB PO SCH (09:16)
[2021-01-26] MEDS: FERROUS SULFATE 325 MG TAB PO SCH (09:16)
[2021-01-26] MEDS: ASPIRIN 81 MG ECTAB PO SCH (09:16)
[2021-01-26] MEDS: CLOPIDOGREL BISULFATE 75 MG TAB PO SCH (09:16)
[2021-01-26] MEDS: DOCUSATE SODIUM 100 MG CAP PO SCH ×2 (09:16→22:01)
[2021-01-26] MEDS: POLYETHYLENE (MIRALAX) 17 GM PACK PO SCH (09:17)
[2021-01-26] MEDS: ROSUVASTATIN CALCIUM 10 MG TAB PO SCH (22:01)
[2021-01-26] MEDS: SENNA 8.6 MG TAB PO SCH (22:02)
[2021-01-27] MEDS: AMPICILLIN/SULBACTAM SOD 3,000 MG in 0.9 % SODIUM CHLORIDE 100 ML IV SCH ×4 (05:47→23:01)
[2021-01-27 07:56] LABS: Creatinine Clr Calc Pharmacy 66.2 ml/min; Est GFR (African American) 93.6; Est GFR (Non-African American) 80.8
--- NOTE | 2021-01-27 08:17 | Anesthesiology Consultation ---
Date of Service January 27, 2021 Assessment & Plan (1) Encounter for pre-operative examination: Chart Review Chart Review: Acceptable Risk for Surgery and Patient NOT seen in Pre Admission Testing Consults Requested none History Surgery Operation Date: 01/17/21 20:30 Proposed Procedures p Incision and Drainage Extremity(Left) - Isael Hammer MD Operation Date: 01/19/21 07:30 Proposed Procedures p Incision and Drainage Extremity - Isael Hammer MD Operation Date: 01/22/21 07:15 Proposed Procedures p Replacing Medium Silver Graulfoam Wound Vac & [place] - Isael Hammer MD Operation Date: 01/22/21 07:15 Proposed Procedures p Replacing Medium Silver Graulfoam Wound Vac and Cartridge Thigh Left - Isael Hammer MD Operation Date: 01/22/21 07:30 Proposed Procedures p Incision and Drainage left thigh, wound vac exchange with silver granufoam(Left) - Isael Hammer MD Operation Date: 01/24/21 12:00 Proposed Procedures p Replacing Medium Silver Graulfoam Wound Vac and Cartridge Thigh Left - Magdy Jessica Pemberton MD Operation Date: 01/27/21 12:50 Proposed Procedures p Replacing Medium Silver Graulfoam Wound Vac and Cartridge Thigh Left - Magdy Jessica Pemberton MD Operation Date: 01/29/21 08:30 Proposed Procedures p Replacing Medium Silver Graulfoam Wound Vac and Cartridge Thigh Left - Isael Hammer MD Height/Weight Height: 5 ft 9 in Weight: 73.7 kg Allergies Allergy/AdvReac Type Severity Reaction Status Date / Time No Known Drug Allergies Allergy Verified 01/17/21 19:02 onion AdvReac Verified 01/18/21 10:56 Medications Home Medications Medication Instructions Recorded Confirmed Last Taken aspirin 81 mg tablet,delayed 81 mg PO DAILY tab 05/31/19 01/17/21 01/17/21 release coenzyme Q10 200 mg capsule 200 mg PO DAILY cap 05/31/19 01/17/21 01/17/21 multivitamin 1 tab PO DAILY 05/31/19 01/17/21 01/17/21 tadalafil 20 mg tablet 20 mg PO DAILY PRN #18 tab 08/25/19 01/17/21 Unknown clopidogrel 75 mg tablet 75 mg PO DAILY #90 tab 03/11/20 01/17/21 01/17/21 rosuvastatin 10 mg PO HS 01/17/21 01/17/21 01/16/21 Active Medications Generic Name Dose Route Start Last Admin Trade Name Freq PRN Reason Stop Dose Admin Acetaminophen 1,000 mg 01/17/21 23:12 01/18/21 15:53 Acetaminophen 500 Mg Tab PO 02/16/21 23:11 1,000 mg Q8 PRN Administration Pain or Fever Aspirin 81 mg 01/23/21 09:00 01/26/21 09:16 Aspirin 81 Mg Ectab PO 02/22/21 08:59 81 mg QAM CLARA Administration Clopidogrel Bisulfate 75 mg 01/23/21 09:00 01/26/21 09:16 Clopidogrel Bisulfate 75 Mg Tab PO 02/22/21 08:59 75 mg QAM CLARA Administration Docusate Sodium 100 mg 01/22/21 09:00 01/26/21 22:01 Docusate Sodium 100 Mg Cap PO 02/21/21 08:59 100 mg BID CLARA Administration Ferrous Sulfate 325 mg 01/24/21 09:00 01/26/21 09:16 Ferrous Sulfate 325 Mg Tab PO 02/23/21 08:59 325 mg QAM CLARA Administration Ampicillin Sodium/Sulbactam 108 mls @ 216 mls/hr 01/25/21 12:00 01/27/21 06:25 Sodium 3,000 mg/ Sodium IV 02/01/21 11:59 Infused Chloride Q6 CLARA Infusion Magnesium Citrate 148 ml 01/22/21 13:57 01/23/21 13:29 Magnesium Citrate 296 Ml/Btl PO 02/21/21 13:56 148 ml DAILY PRN Administration Constipation Multivitamins 1 tab 01/19/21 09:00 01/26/21 09:16 Multivitamin Tab PO 02/18/21 08:59 1 tab QAM CLARA Administration Polyethylene Glycol 17 gm 01/20/21 18:45 01/26/21 09:17 Polyethylene (Miralax) 17 Gm Pack PO 02/19/21 18:44 Not Given DAILY CLARA Rosuvastatin Calcium 10 mg 01/18/21 21:00 01/26/21 22:01 Rosuvastatin Calcium 10 Mg Tab PO 02/17/21 20:59 10 mg HS CLARA Administration Sennosides 17.2 mg 01/18/21 21:00 01/26/21 22:02 Senna 8.6 Mg Tab PO 02/17/21 20:59 17.2 mg HS CLARA Administration Tramadol HCl 50 - 100 mg 01/17/21 23:12 01/22/21 15:38 Tramadol Hcl 50 Mg Tablet PO 02/16/21 23:11 50 mg Q4H PRN Administration Pain & Pre PT NPO Date Last Intake of Fluids: 01/23/21 Time Last Intake of Fluids: 23:55 Date Last Intake of Solids: 01/23/21 Time Last Intake of Solids: 23:55 Past Medical History Medical History Anemia Bilateral tinnitus CAD (coronary artery disease) Diverticulosis Foot pain Generalized osteoarthritis of multiple sites Hearing decreased Hearing loss Hematoma of left thigh Hematoma of left thigh History of pelvic fracture History of pericarditis Hyperlipidemia Internal hemorrhoids Paroxysmal atrial fibrillation Pericardial tamponade Pre-diabetes Prostate cancer Sensorineural hearing loss (SNHL) of both ears SNHL (sensorineural hearing loss) Tinnitus Past Family History Family History Sister Breast cancer Father Alcoholism Cirrhosis Denies family history of Prostate cancer Myocardial infarction Colorectal cancer Past Surgical History Surgical History H/O cardiac catheterization H/O colonoscopy with polypectomy H/O prostatectomy History of heart artery stent History of pelvic surgery Hx of foot surgery left Hx of tonsillectomy Status post creation of pericardial window Social History Smoking Status: Never smoker Do You Dip or Chew Tobacco: No Hx Alcohol Use: Yes Alcohol type: hard liquor alcohol intake frequency: holidays/special occasions only Hx Substance Use: No substance use type: does not use Physical Exam Vital Signs Last Vital Signs Temp 36.6 C 01/26/21 22:31 Pulse 63 01/26/21 22:31 Resp 16 01/26/21 22:31 BP 133/61 01/26/21 22:31 Pulse Ox 98 01/26/21 22:31 Testing Laboratory Results 01/25/21 05:43 01/27/21 07:00 PT 11.8 Seconds (9.0-12.0) 01/18/21 20:28 INR 1.2 (0.9-1.1) H 01/18/21 20:28 APTT 30.2 Seconds (21.0-31.0) 01/18/21 20:28 Hemoglobin A1c 6.2 % (4.5-5.6) H 01/20/21 08:00 Urine Color Yellow 01/25/21 Unknown Urine Appearance Clear (Clear) 01/25/21 Unknown Urine pH 7.5 (4.5-7.5) 01/25/21 Unknown Ur Specific [place] 1.014 (1.000-1.030) 01/25/21 Unknown Urine Protein Negative (Negative) 01/25/21 Unknown Urine Glucose (UA) Negative (Negative) 01/25/21 Unknown Urine Ketones Negative (Negative) 01/25/21 Unknown Urine Nitrite Negative (Negative) 01/25/21 Unknown Ur Leukocyte Esterase Negative (Negative) 01/25/21 Unknown Blood Type O Positive 01/18/21 16:37 Antibody Screen NEGATIVE 01/18/21 16:37 01/17/21 21:30 Gram Stain - Final Thigh,Left Aerobic and Anaerobic Culture - Final Group B Beta Strep 01/18/21 01:23 Aerobic Blood Culture - Final Blood No growth in Aerobic bottle after 5 days. Anaerobic Blood Culture - Final 01/18/21 01:31 Aerobic Blood Culture - Final Blood No growth in Aerobic bottle after 5 days. Anaerobic Blood Culture - Final 01/17/21 16:45 Gram Stain - Final Thigh,Left Wound Culture - Final Group B Beta Strep Electrocardiogram Date: 01/17/21 Findings: + NSR @ (63) 1st degree AV block with PACs, low voltage QRS Chest X-Ray Date: 01/17/21 IMPRESSION: Cardiomegaly and emphysema with no acute cardiopulmonary abnormality. Echocardiogram Date: 06/21/20 LV size, thickness and function are normal RA is mild to mod dilated
[2021-01-27] MEDS: ASPIRIN 81 MG ECTAB PO SCH (08:30)
[2021-01-27] MEDS: CLOPIDOGREL BISULFATE 75 MG TAB PO SCH (08:30)
--- NOTE | 2021-01-27 09:29 | Orthopedic Progress Note ---
Date of Service January 27, 2021 Assessment & Plan (1) Abscess of left thigh: HD # 11, L thigh infection, s/p multiple I&D and wound Vac placement for large left thigh wound. POD # 3 s/p I&D and wound Vac exchange left thigh. Continue wound vac left thigh Continue Antibiotics Has been NPO p MN tonight - plan for wound vac change in the OR later today. Ice and elevation PRN swelling/pain Allowed for full ROM left leg, WBAT. PT/OT Appreciate medicine input, who will continue to monitor chart. Informed Consent signed. Continue covering for Dr. Hammer who is out of town. Admission and Anticipated Discharge Date Admission Date: January 17, 2021 Subjective Doing fine Review of Systems Review of Systems: All systems reviewed & are unremarkable except as noted in HPI & below Physical Exam Physical Exam: LLE: Wound Vac in place, functioning well. Neurovascularly intact. Calf soft non-tender. Results & Data ([facility]) Vital Signs (Past 12 Hours) Vital Signs Temp Pulse Resp BP Pulse Ox 01/27/21 08:31 36.9 C 53 L 18 106/63 95 01/26/21 22:31 36.6 C 63 16 133/61 98
[2021-01-27] MEDS ORDERED: ATROPINE SULFATE 0.1 MG/ML 10ML SYR IV PRN (12:24)
[2021-01-27] MEDS ORDERED: ePHEDrine sulfate 50 MG/ML AMP IV PRN (12:24)
[2021-01-27] MEDS ORDERED: ONDANSETRON INJ 2 MG/ML 2 ML VIAL IV PRN (12:24)
[2021-01-27] MEDS ORDERED: LIDOCAINE/EPINEPHRINE 1% 20 ML VIAL ONE (12:42)
[2021-01-27] MEDS ORDERED: BUPIVACAINE 0.5 % 5 MG/1 ML MPF 30ML VIAL ONE (12:42)
[2021-01-27] MEDS ORDERED: LIDOCAINE HCL 2% 2 ML VIAL/AMP(20MG/ML) INFIL ONE (12:45)
[2021-01-27] MEDS ORDERED: fentaNYL citrate 100 MCG/2 ML VIAL ONE (12:45)
[2021-01-27] MEDS ORDERED: PROPOFOL IV EMULSION 10 MG/ML 20 ML VIAL IV ONE ×2 (12:45→13:26)
--- NOTE | 2021-01-27 13:46 | Operative Report ---
Post Operative Report Pre & Post Diagnosis Operation Date: 01/17/21 20:30 Pre-Op Diagnosis: INFECTION IN LEFT LEG Post-Op Diagnosis: INFECTION IN LEFT LEG Operation Date: 01/19/21 07:30 Pre-Op Diagnosis: Left thigh abscess Post-Op Diagnosis: Left thigh abscess Operation Date: 01/22/21 07:15 Pre-Op Diagnosis: Left thigh abscess Post-Op Diagnosis: Left thigh abscess Operation Date: 01/24/21 12:00 Pre-Op Diagnosis: Left thigh abscess Post-Op Diagnosis: Left thigh abscess Operation Date: 01/27/21 12:50 Pre-Op Diagnosis: LEFT THIGH ABSCESS Post-Op Diagnosis: LEFT THIGH ABSCESS I identified the patient and participated in the time-out.: Yes Procedure Operation Date: 01/17/21 20:30 Actual Procedures p Incision and Drainage Left Thigh Abscess(Left) - Isael Hammer MD Operation Date: 01/19/21 07:30 Actual Procedures p Incision and Drainage of Left thigh (Left) - Isael Hammer MD Operation Date: 01/22/21 07:15 <No data on this case meets the specified criteria> Operation Date: 01/22/21 07:15 Actual Procedures p Replacing Medium Silver Graulfoam Wound Vac and Cartridge Thigh Left(Left) - Isael Hammer MD Operation Date: 01/24/21 12:00 Actual Procedures p Replacing Medium Silver Graulfoam Wound Vac and Cartridge Thigh Left(Left) - Magdy Pemberton MD Operation Date: 01/27/21 12:50 Actual Procedures p Replacing Medium Silver Graulfoam Wound Vac and Cartridge Thigh Left(Left) - Magdy Pemberton MD Surgeon Magdy Pemberton MD Internal Review And Audit Compliance Pastor Wiggins PA-C; no fellow available. Estimated Blood Loss 2 Findings See Below Length 17 cm x width 17 cm (undermined under skin), depth full thickness down to the muscle. small 2 cm wound medially connected to main wound. Muscle and skin edges looked viable, healthy, no evidence of infection. Fluids 300 cc Specimens n/a Drains Wound Vac Anesthesia Type MAC Complications none Indications Patient status post I&D of the left leg mass/abscess by Dr. Hammer, who is out of town and I am covering. The patient has a large wound on the anterior thigh, full-thickness from the subcutaneous down to the muscle fascia, that is being treated with wound Vac. Informed consent obtained for planned return to OR for I&D, wound VAC exchange. Description of Procedure The patient was taken to the Operating Room and after sufficient sedation was administered a multidisciplinary time-out was performed identifying my initials on the left limb as the correct and operative limb, the patient was placed in the supine position on the operating table. The patient is continue his antibiotic regime. The left lower leg was prepped and draped in the standard sterile fashion. Preoperative antibiotics were not necessary. The wound VAC was removed. The VAC sponges removed. There was no bleeding. There was no purulence noted and no necrotic tissue. The wound was irrigated with normal saline. There was early granulation present throughout the wound. The medial wound was extended and skin edges elipsed. It was then sutured with 2-0 Prolene using vertical mattress centrally and horizontal mattress on either side. A new silver impregnated sponge was cut in half to reduce its thickness. The sponge was placed to try and reduce the volume, and extended short of the tract medially. Acticoat was applied over the closed wound and along the edge of the long incision. A partial incisional wound vac with bridging to the main wound VAC was applied and deployed without incident. The patient was taken recovery room in stable condition. The sponge and needle counts were correct. POST-OP: Patient was re-admitted to the surgical floor. Plan to return 01/29/21 for repeat I&D with exchange the wound VAC with Dr. Hammer. I attest to the content of the Intraoperative Record and any orders documented therein. Any exceptions are noted below.
--- NOTE | 2021-01-27 13:49 | Operative Report ---
Post Operative Report Pre & Post Diagnosis Operation Date: 01/17/21 20:30 Pre-Op Diagnosis: INFECTION IN LEFT LEG Post-Op Diagnosis: INFECTION IN LEFT LEG Operation Date: 01/19/21 07:30 Pre-Op Diagnosis: Left thigh abscess Post-Op Diagnosis: Left thigh abscess Operation Date: 01/22/21 07:15 <No data on this case meets the specified criteria> Operation Date: 01/22/21 07:15 Pre-Op Diagnosis: Left thigh abscess Post-Op Diagnosis: Left thigh abscess Operation Date: 01/22/21 07:30 <No data on this case meets the specified criteria> Operation Date: 01/24/21 12:00 Pre-Op Diagnosis: Left thigh abscess Post-Op Diagnosis: Left thigh abscess Operation Date: 01/27/21 12:50 Pre-Op Diagnosis: LEFT THIGH ABSCESS Post-Op Diagnosis: LEFT THIGH ABSCESS Operation Date: 01/29/21 08:45 <No data on this case meets the specified criteria> I identified the patient and participated in the time-out.: Yes Procedure Operation Date: 01/17/21 20:30 Actual Procedures p Incision and Drainage Left Thigh Abscess(Left) - Isael Hammer MD Operation Date: 01/19/21 07:30 Actual Procedures p Incision and Drainage of Left thigh (Left) - Isael Hammer MD Operation Date: 01/22/21 07:15 <No data on this case meets the specified criteria> Operation Date: 01/22/21 07:15 Actual Procedures p Replacing Medium Silver Graulfoam Wound Vac and Cartridge Thigh Left(Left) - Isael Hammer MD Operation Date: 01/22/21 07:30 <No data on this case meets the specified criteria> Operation Date: 01/24/21 12:00 Actual Procedures p Replacing Medium Silver Graulfoam Wound Vac and Cartridge Thigh Left(Left) - Magdy Pemberton MD Operation Date: 01/27/21 12:50 Actual Procedures p Replacing Medium Silver Graulfoam Wound Vac and Cartridge Thigh Left(Left) - Magdy Pemberton MD Operation Date: 01/29/21 08:45 <No data on this case meets the specified criteria> Surgeon Magdy Pemberton M.D. Surface [employer] Weapons Officer Pastor Wiggins PA-C; no fellow available. Estimated Blood Loss 2 Findings Consistent with Post-Op Diagnosis Specimens None Anesthesia Type MAC Complications none Description of Procedure Patient was taken to the operating room, placed under sedation. Time out performed, prepped and draped in routine sterile fashion. I was present during the entire case, please see Dr. Hammer's operative report for further detail. Patient was awakened and taken to the recovery room in stable condition. I attest to the content of the Intraoperative Record and any orders documented therein. Any exceptions are noted below.
--- NOTE | 2021-01-27 14:00 | Anesthesiology Progress Note ---
Date of Service January 27, 2021 Anesthesia Post Procedure Vital Signs Vital Signs: Temp Pulse Resp BP Pulse Ox 01/27/21 12:06 98.2 F 58 L 18 115/59 L 96 01/27/21 08:31 98.4 F 53 L 18 106/63 95 01/26/21 22:31 97.9 F 63 16 133/61 98 01/26/21 19:22 116/68 01/26/21 15:52 97.9 F 61 18 106/32 L 98 Pain Intensity Left Thigh: Pain Intensity: 1 Transfer of Care Handoff Completed per policy Notes Mental Status: alert / awake / arousable and participated in evaluation Patient Amnestic to Procedure: Yes Nausea / Vomiting: adequately controlled Pain: adequately controlled Airway Patency, RR, SpO2: stable & adequate BP & HR: stable & adequate Hydration State: stable & adequate Anesthetic Complications: no major complications apparent and Pt Satisfied with anesthetic care
[2021-01-27] MEDS: fentaNYL citrate 100 MCG/2 ML VIAL IV PRN ×2 (14:12→14:17)
[2021-01-27] MEDS: DOCUSATE SODIUM 100 MG CAP PO SCH ×2 (15:09→21:09)
[2021-01-27] MEDS: MULTIVITAMIN TAB PO SCH (15:09)
[2021-01-27] MEDS: POLYETHYLENE (MIRALAX) 17 GM PACK PO SCH (15:09)
[2021-01-27] MEDS: FERROUS SULFATE 325 MG TAB PO SCH (15:09)
[2021-01-27] MEDS: ROSUVASTATIN CALCIUM 10 MG TAB PO SCH (21:09)
[2021-01-27] MEDS: SENNA 8.6 MG TAB PO SCH (21:09)
[2021-01-28] MEDS: AMPICILLIN/SULBACTAM SOD 3,000 MG in 0.9 % SODIUM CHLORIDE 100 ML IV SCH ×4 (05:55→23:19)
--- NOTE | 2021-01-28 06:50 | Hospitalist Progress Note ---
Date of Service January 28, 2021 Assessment & Plan (1) Acute blood loss anemia: * s/p 4 units total PRBC * Repeat h/h stable 9.4/27.8 after 1 unit PRBC 01/20, on fluids as well for another 1L * Repeat I&D on 01/[address] Hammer * s/p wound vac exchange on 01/24, no issues and plans for repeat exchanges on 01/27 and 01/29 * Resumed ASA/Plavix on 01/23 * h/h 9.6/29 and stable. * Iron studies with slightly low iron/borderline with trans %sat low at 16 and transferrin 161. * Started on oral iron supplementation and would continue for acute time. Bowel regimen with mag citrate prn (success in past with 1/2 bottle as needed) * Continue to monitor blood counts Transfuse threshold Hgb aim > 8 given ongoing need for operation and coronary artery disease. No cp or shortness of breath Latest Hemoglobin is 9.6 (2) Abscess of left thigh: * Discontinued vancomycin since Group B strep growing in both wound cultures. * Initial I&D on 01/19 * Repeat exchange on 01/22 for 200cc clot * Repeated exchange 01/24 and tolerated well. EBL 0. * --> Restarted ASA/Plavix 01/23 as above now that bleeding controlled and h/h stable on repeat and starting iron supplementation as above * Plans for repeat exchanges in OR on 01/27 and 01/29 as above * ID consultation -- continue Unasyn while inpatient with plans for Augmentin for 2-3 weeks at discharge * CRP continues to trend down, 21.4 on admission -->> now 7.53 * Will need wound care at d/c (3) Cellulitis of left thigh: * As above. (4) Complex sleep apnea syndrome: * Not on treatment for this. * He is not on CPAP (5) CAD (coronary artery disease): * Acute WA with drug-eluting stent to proximal LAD in February 2015 and was maintained on ASA/Plavix [employer] * Holding ASA, clopidogrel in the setting of acute hemorrhage following initial I&D on admission with blood clot 200cc * --> RESUMED 01/23 as above * Continuing rosuvastatin (6) Paroxysmal atrial fibrillation: * Solitary episode in the setting of acute WA therefore not on anticoagulation. * No known recurrence of his atrial fibrillation since this time. * TSH wnl (7) Constipation: * Continue bowel regimen - + BM 01/21 * Mag citrate added and he had BM after this in the past * 1/2 bottle with BMs 01/24 and 01/25, normal and brown, moderate * Continue bowel regimen * Mag citrate 1/2 bottle prn * Continue to monitor (8) Penile swelling: * Reported 01/23, no erythema or pain reported * UO acceptable * Lasix 20mg IV provided on 01/23 * Decreased edema, no longer present * Urology on consult (9) DVT prophylaxis: * SCDs. * Chemical prophylaxis deferred due to acute hemorrhage as above but plans for resuming ASA and Plavix morning 01/23 after discussion with primary service Hospitalist service will sign off at this time. Will periodically chart check/see as needed. Admission and Anticipated Discharge Date Admission Date: January 17, 2021 Subjective Patient reports doing well. He has no new complaints. Review of Systems Review of Systems: All systems reviewed & are unremarkable except as noted in HPI & below Physical Exam Physical Exam: Constitutional: well developed and well nourished; no acute distress Eyes: + anicteric sclerae; normal pupil size ENMT: external ear and nose normal, oropharynx normal Neck: trachea midline, no thyromegaly Respiratory: normal respiratory effort, lungs clear to auscultation Cardiovascular: RRR, no murmur, no edema Gastrointestinal (Abdomen): normal bowel sounds, soft, nontender, no hepatosplenomegaly Musculoskeletal: no cyanosis or clubbing, extremities motor strength 5/5 Head/Neck/Chest: normocephalic and head atraumatic Skin: cool, dry wound vac to L thigh with covering and medial opening from procedure no erythema, intact, functioning NVI pulses palpable bilaterally Results & Data Results & Data ([facility]) Vital Signs (Past 12 Hours) Vital Signs Temp Pulse Resp BP Pulse Ox 01/28/21 03:24 36.8 C 61 15 105/71 95 01/27/21 22:16 37.1 C 62 15 149/64 H 99 01/27/21 20:00 37.0 C 60 16 142/66 H 97 PG Care Time/CCT Total # of Minutes Spent Total Time Spent with Patient: Total time spent is greater than 50% in coordination of care (as documented) at patient's floor/unit and/or counseling patient: Coding Level of Care Code 03355 Subseq Hosp Care Lvl 2 Diagnoses Acute blood loss anemia D62 Abscess of left thigh L02.416 Cellulitis of left thigh L03.116 Complex sleep apnea syndrome G47.31 CAD (coronary artery disease) I25.10 Paroxysmal atrial fibrillation I48.0 Constipation K59.00 Penile swelling N48.89 DVT prophylaxis Z29.9 Time Spent (min) 25
[2021-01-28] MEDS: ASPIRIN 81 MG ECTAB PO SCH (07:54)
[2021-01-28] MEDS: FERROUS SULFATE 325 MG TAB PO SCH (07:54)
[2021-01-28] MEDS: CLOPIDOGREL BISULFATE 75 MG TAB PO SCH (07:54)
[2021-01-28] MEDS: MULTIVITAMIN TAB PO SCH (07:55)
[2021-01-28] MEDS: DOCUSATE SODIUM 100 MG CAP PO SCH ×2 (07:55→21:42)
[2021-01-28] MEDS: POLYETHYLENE (MIRALAX) 17 GM PACK PO SCH (07:55)
--- NOTE | 2021-01-28 09:41 | Orthopedic Progress Note ---
Date of Service January 28, 2021 Assessment & Plan (1) Abscess of left thigh: HD # 11, L thigh infection, s/p multiple I&D and wound Vac placement for large left thigh wound. POD # 1 s/p I&D and wound Vac exchange left thigh. Continue wound vac left thigh Continue Antibiotics Made NPO p MN tonight - plan for wound vac change in the OR tomorrow morning with Dr. Hammer. Ice and elevation PRN swelling/pain Allowed for full ROM left leg, WBAT. PT/OT Appreciate medicine input, who will continue to monitor chart. Informed Consent signed. by Dr. Hammer. May continue ASA/Plavix - no need to stop pre-operatively Dr. Hammer present for today's visit. Admission and Anticipated Discharge Date Admission Date: January 17, 2021 Subjective Patient doing well. Had some pain after procedure yesterday, but controlled with oral pain medication. Has been out of bed, no pain today. Tolerating regular diet. Physical Exam Physical Exam: Left hip/thigh wound vac in place, functioning, full ROM left hip, knee and ankle. No distal edema LLE. Distal N/V intact. No left knee effusion. Results & Data ([facility]) Vital Signs (Past 12 Hours) Vital Signs Temp Pulse Resp BP Pulse Ox 01/28/21 07:30 36.8 C 53 L 18 120/63 96 01/28/21 03:24 36.8 C 61 15 105/71 95 01/27/21 22:16 37.1 C 62 15 149/64 H 99
[2021-01-28] MEDS: SENNA 8.6 MG TAB PO SCH (21:42)
[2021-01-28] MEDS: ROSUVASTATIN CALCIUM 10 MG TAB PO SCH (21:42)
[2021-01-29] MEDS: AMPICILLIN/SULBACTAM SOD 3,000 MG in 0.9 % SODIUM CHLORIDE 100 ML IV SCH ×4 (05:20→23:42)
[2021-01-29 07:18] LABS: Est GFR (African American) 97.9; Est GFR (Non-African American) 84.5
[2021-01-29] MEDS ORDERED: PROPOFOL IV EMULSION 10 MG/ML 20 ML VIAL IV ONE (07:54)
[2021-01-29] MEDS ORDERED: LIDOCAINE HCL 2% 2 ML VIAL/AMP(20MG/ML) INFIL ONE (07:54)
[2021-01-29] MEDS ORDERED: fentaNYL citrate 100 MCG/2 ML VIAL ONE (07:54)
[2021-01-29] MEDS ORDERED: ONDANSETRON INJ 2 MG/ML 2 ML VIAL ONE (07:54)
[2021-01-29] MEDS ORDERED: DEXAMETHASONE SOD INJ 4 MG/ML VIAL ONE (07:54)
--- NOTE | 2021-01-29 08:05 | Anesthesiology Consultation ---
Date of Service January 29, 2021 Assessment & Plan (1) Encounter for pre-operative examination: History Surgery Operation Date: 01/17/21 20:30 Proposed Procedures p Incision and Drainage Extremity(Left) - Isael Hammer MD Operation Date: 01/19/21 07:30 Proposed Procedures p Incision and Drainage Extremity - Isael Hammer MD Operation Date: 01/22/21 07:15 Proposed Procedures p Replacing Medium Silver Graulfoam Wound Vac & Catridge - Isael Hammer MD Operation Date: 01/22/21 07:15 Proposed Procedures p Replacing Medium Silver Graulfoam Wound Vac and Cartridge Thigh Left - Isael Hammer MD Operation Date: 01/22/21 07:30 Proposed Procedures p Incision and Drainage left thigh, wound vac exchange with silver granufoam(Left) - Isael Hammer MD Operation Date: 01/24/21 12:00 Proposed Procedures p Replacing Medium Silver Graulfoam Wound Vac and Cartridge Thigh Left - Magdy A MD Niecy Operation Date: 01/27/21 12:50 Proposed Procedures p Replacing Medium Silver Graulfoam Wound Vac and Cartridge Thigh Left - Magdy Jessica Pemberton MD Operation Date: 01/29/21 08:45 Proposed Procedures p Replacing Medium Silver Graulfoam Wound Vac and Cartridge Thigh Left - Isael Hammer MD Operation Date: 01/31/21 07:00 Proposed Procedures p Replacing Medium Silver Graulfoam Wound Vac and Cartridge Thigh Left - Isael Hammer MD Operation Date: 02/03/21 07:00 Proposed Procedures p Replacing Medium Silver Graulfoam Wound Vac and Cartridge Thigh Patricia - Isael Hammer MD Height/Weight Height: 5 ft 9 in Weight: 73.7 kg Allergies Allergy/AdvReac Type Severity Reaction Status Date / Time No Known Drug Allergies Allergy Verified 01/17/21 19:02 onion AdvReac Verified 01/18/21 10:56 Medications Home Medications Medication Instructions Recorded Confirmed Last Taken aspirin 81 mg tablet,delayed 81 mg PO DAILY tab 05/31/19 01/17/21 01/17/21 release coenzyme Q10 200 mg capsule 200 mg PO DAILY cap 05/31/19 01/17/21 01/17/21 multivitamin 1 tab PO DAILY 05/31/19 01/17/21 01/17/21 tadalafil 20 mg tablet 20 mg PO DAILY PRN #18 tab 08/25/19 01/17/21 Unknown clopidogrel 75 mg tablet 75 mg PO DAILY #90 tab 03/11/20 01/17/21 01/17/21 rosuvastatin 10 mg PO HS 01/17/21 01/17/21 01/16/21 Active Medications Generic Name Dose Route Start Last Admin Trade Name Freq PRN Reason Stop Dose Admin Acetaminophen 1,000 mg 01/17/21 23:12 01/18/21 15:53 Acetaminophen 500 Mg Tab PO 02/16/21 23:11 1,000 mg Q8 PRN Administration Pain or Fever Aspirin 81 mg 01/23/21 09:00 01/28/21 07:54 Aspirin 81 Mg Ectab PO 02/22/21 08:59 81 mg QAM CLARA Administration Clopidogrel Bisulfate 75 mg 01/23/21 09:00 01/28/21 07:54 Clopidogrel Bisulfate 75 Mg Tab PO 02/22/21 08:59 75 mg QAM CLARA Administration Docusate Sodium 100 mg 01/22/21 09:00 01/28/21 21:42 Docusate Sodium 100 Mg Cap PO 02/21/21 08:59 100 mg BID CLARA Administration Ferrous Sulfate 325 mg 01/24/21 09:00 01/28/21 07:54 Ferrous Sulfate 325 Mg Tab PO 02/23/21 08:59 325 mg QAM CLARA Administration Ampicillin Sodium/Sulbactam 108 mls @ 216 mls/hr 01/25/21 12:00 01/29/21 06:19 Sodium 3,000 mg/ Sodium IV 02/01/21 11:59 Infused Chloride Q6 CLARA Infusion Magnesium Citrate 148 ml 01/22/21 13:57 01/23/21 13:29 Magnesium Citrate 296 Ml/Btl PO 02/21/21 13:56 148 ml DAILY PRN Administration Constipation Multivitamins 1 tab 01/19/21 09:00 01/28/21 07:55 Multivitamin Tab PO 02/18/21 08:59 1 tab QAM CLARA Administration Polyethylene Glycol 17 gm 01/20/21 18:45 01/28/21 07:55 Polyethylene (Miralax) 17 Gm Pack PO 02/19/21 18:44 17 gm DAILY CLARA Administration Rosuvastatin Calcium 10 mg 01/18/21 21:00 01/28/21 21:42 Rosuvastatin Calcium 10 Mg Tab PO 02/17/21 20:59 10 mg HS CLARA Administration Sennosides 17.2 mg 01/18/21 21:00 01/28/21 21:42 Senna 8.6 Mg Tab PO 02/17/21 20:59 17.2 mg HS CLARA Administration Tramadol HCl 50 - 100 mg 01/17/21 23:12 01/22/21 15:38 Tramadol Hcl 50 Mg Tablet PO 02/16/21 23:11 50 mg Q4H PRN Administration Pain & Pre PT NPO Date Last Intake of Fluids: 01/28/21 Time Last Intake of Fluids: 17:00 Date Last Intake of Solids: 01/28/21 Time Last Intake of Solids: 17:00 Past Medical History Medical History Anemia Bilateral tinnitus CAD (coronary artery disease) Diverticulosis Foot pain Generalized osteoarthritis of multiple sites Hearing decreased Hearing loss Hematoma of left thigh Hematoma of left thigh History of pelvic fracture History of pericarditis Hyperlipidemia Internal hemorrhoids Paroxysmal atrial fibrillation Pericardial tamponade Pre-diabetes Prostate cancer Sensorineural hearing loss (SNHL) of both ears SNHL (sensorineural hearing loss) Tinnitus Past Family History Family History Sister Breast cancer Father Alcoholism Cirrhosis Denies family history of Prostate cancer Myocardial infarction Colorectal cancer Past Surgical History Surgical History H/O cardiac catheterization H/O colonoscopy with polypectomy H/O prostatectomy History of heart artery stent History of pelvic surgery Hx of foot surgery left Hx of tonsillectomy Status post creation of pericardial window Social History Smoking Status: Never smoker Do You Dip or Chew Tobacco: No Hx Alcohol Use: Yes Alcohol type: hard liquor alcohol intake frequency: holidays/special occasions only Hx Substance Use: No substance use type: does not use Physical Exam Vital Signs Last Vital Signs Temp 36.8 C 01/29/21 07:57 Pulse 57 L 01/29/21 07:57 Resp 18 01/29/21 07:57 BP 112/58 L 01/29/21 07:57 Pulse Ox 97 01/29/21 07:57 Testing Laboratory Results 01/25/21 05:43 01/29/21 06:28 PT 11.8 Seconds (9.0-12.0) 01/18/21 20:28 INR 1.2 (0.9-1.1) H 01/18/21 20:28 APTT 30.2 Seconds (21.0-31.0) 01/18/21 20:28 Hemoglobin A1c 6.2 % (4.5-5.6) H 01/20/21 08:00 Urine Color Yellow 01/25/21 Unknown Urine Appearance Clear (Clear) 01/25/21 Unknown Urine pH 7.5 (4.5-7.5) 01/25/21 Unknown Ur Specific [place] 1.014 (1.000-1.030) 01/25/21 Unknown Urine Protein Negative (Negative) 01/25/21 Unknown Urine Glucose (UA) Negative (Negative) 01/25/21 Unknown Urine Ketones Negative (Negative) 01/25/21 Unknown Urine Nitrite Negative (Negative) 01/25/21 Unknown Ur Leukocyte Esterase Negative (Negative) 01/25/21 Unknown Blood Type O Positive 01/18/21 16:37 Antibody Screen NEGATIVE 01/18/21 16:37 01/17/21 21:30 Gram Stain - Final Thigh,Left Aerobic and Anaerobic Culture - Final Group B Beta Strep 01/18/21 01:23 Aerobic Blood Culture - Final Blood No growth in Aerobic bottle after 5 days. Anaerobic Blood Culture - Final 01/18/21 01:31 Aerobic Blood Culture - Final Blood No growth in Aerobic bottle after 5 days. Anaerobic Blood Culture - Final 01/17/21 16:45 Gram Stain - Final Thigh,Left Wound Culture - Final Group B Beta Strep Electrocardiogram Date: 01/17/21 Findings: + NSR @ (63) 1st degree AV block with PACs, low voltage QRS Chest X-Ray Date: 01/17/21 IMPRESSION: Cardiomegaly and emphysema with no acute cardiopulmonary abnormality. Echocardiogram Date: 06/21/20 LV size, thickness and function are normal RA is mild to mod dilated
--- NOTE | 2021-01-29 08:06 | History & Physical Bridge Note ---
Date of Service January 29, 2021 History & Physical Bridge Note I have examined the patient, reviewed the History & Physical and in the interval since the performance of the History & Physical I have noted the following changes of clinical significance: no changes noted
[2021-01-29] MEDS ORDERED: ePHEDrine sulfate 50 MG/ML AMP IV PRN (08:18)
[2021-01-29] MEDS ORDERED: ATROPINE SULFATE 0.1 MG/ML 10ML SYR IV PRN (08:18)
[2021-01-29] MEDS ORDERED: ONDANSETRON INJ 2 MG/ML 2 ML VIAL IV PRN (08:18)
[2021-01-29] MEDS ORDERED: fentaNYL citrate 100 MCG/2 ML VIAL IV PRN (08:18)
--- NOTE | 2021-01-29 09:11 | Operative Report ---
Post Operative Report Pre & Post Diagnosis Operation Date: 01/17/21 20:30 Pre-Op Diagnosis: INFECTION IN LEFT LEG Post-Op Diagnosis: INFECTION IN LEFT LEG Operation Date: 01/19/21 07:30 Pre-Op Diagnosis: Left thigh abscess Post-Op Diagnosis: Left thigh abscess Operation Date: 01/22/21 07:15 <No data on this case meets the specified criteria> Operation Date: 01/22/21 07:15 Pre-Op Diagnosis: Left thigh abscess Post-Op Diagnosis: Left thigh abscess Operation Date: 01/22/21 07:30 <No data on this case meets the specified criteria> Operation Date: 01/24/21 12:00 Pre-Op Diagnosis: Left thigh abscess Post-Op Diagnosis: Left thigh abscess Operation Date: 01/27/21 12:50 Pre-Op Diagnosis: LEFT THIGH ABSCESS Post-Op Diagnosis: LEFT THIGH ABSCESS Operation Date: 01/29/21 08:45 Pre-Op Diagnosis: Status post left thigh abscess and mass excision Post-Op Diagnosis: Same Operation Date: 01/31/21 07:00 <No data on this case meets the specified criteria> Operation Date: 02/03/21 07:00 <No data on this case meets the specified criteria> I identified the patient and participated in the time-out.: Yes Procedure Operation Date: 01/17/21 20:30 Actual Procedures p Incision and Drainage Left Thigh Abscess(Left) - Isael Hammer MD Operation Date: 01/19/21 07:30 Actual Procedures p Incision and Drainage of Left thigh (Left) - Isael Hammer MD Operation Date: 01/22/21 07:15 <No data on this case meets the specified criteria> Operation Date: 01/22/21 07:15 Actual Procedures p Replacing Medium Silver Graulfoam Wound Vac and Cartridge Thigh Left(Left) - Isael Hammer MD Operation Date: 01/22/21 07:30 <No data on this case meets the specified criteria> Operation Date: 01/24/21 12:00 Actual Procedures p Replacing Medium Silver Graulfoam Wound Vac and Cartridge Thigh Left(Left) - Magdy Pemberton MD Operation Date: 01/27/21 12:50 Actual Procedures p Replacing Medium Silver Graulfoam Wound Vac and Cartridge Thigh Left(Left) - Magdy Pemberton MD Operation Date: 01/29/21 08:45 Actual Procedures p Replacing Black Graulfoam Wound Vac and Cartridge Thigh Left(Left) - Isael Hammer MD Operation Date: 01/31/21 07:00 <No data on this case meets the specified criteria> Operation Date: 02/03/21 07:00 <No data on this case meets the specified criteria> Surgeon Isael Hammer MD Rn Burn Pastor Wiggins PA-C; Elias Walker Estimated Blood Loss 1 Findings Consistent with Post-Op Diagnosis Specimens None Drains Wound VAC Anesthesia Type MAC Complications none Disposition Accompanied Patient To Recovery: No Disposition: Recovery Room Indications Patient is 80. He is status post excision of a benign cystic thigh mass, reactive in nature, which had gotten infected. The resultant removal left a large area of space being treated with wound VAC closure. Description of Procedure Informed consent obtained. Patient identified. He identified the operative site as the left thigh. I marked with my initials. A preoperative surgical timeout was performed. Preoperative antibiotics overnight indicated. He is positioned supine on the OR table. Clean technique was utilized. DVT prophylaxis with early mobility and mechanical devices. The wound VAC was disconnected and removed. The medial sinus had been sutured closed and was sealing up well. The skin was in good condition without maceration. VAC sponge was removed. There was much less tracking up towards the greater trochanter. At least a 50% decrease in that distance. It was 12 to 15 cm medial to lateral and 10-12 superior to inferior. Good granulating tissue without any purulence hematoma or abnormal bleeding. The area was irrigated and a new VAC sponge smaller than the cavity was applied. The VAC dressing was applied and deployed without incident. Adaptic was utilized over the open areas. He was then awakened from anesthesia without difficulty and taken to recovery in stable condition. There were no specimens or complications. Counts were correct. Blood loss was 1 cc. At the conclusion of the operation spoke to his informed her of my findings and postop instructions/plan given. Plan to return to the OR on Wednesday. We will have the wound nurse look at the wound to see if it is appropriate to start changing this on the floor. Certainly getting close. I do not think that this incision needs to be extended as it covers the superior to inferior distance of the wound which has a larger dimension medial to lateral. I attest to the content of the Intraoperative Record and any orders documented therein. Any exceptions are noted below.
--- NOTE | 2021-01-29 09:22 | Anesthesiology Progress Note ---
Date of Service January 29, 2021 Anesthesia Post Procedure Vital Signs Vital Signs: Temp Pulse Pulse Resp BP Pulse Ox 01/29/21 09:20 51 L 16 100/52 L 98 01/29/21 09:10 36.8 C 54 L 17 103/50 L 95 01/29/21 09:00 54 L 18 91/48 L 95 01/29/21 08:53 36.9 C 53 L 12 88/50 L 96 01/29/21 07:57 36.8 C 57 L 18 112/58 L 97 01/29/21 07:07 36.9 C 58 L 18 110/58 L 96 01/28/21 23:37 36.6 C 59 L 18 126/63 96 01/28/21 16:17 36.7 C 64 18 124/62 100 Pain Intensity Left Thigh: Pain Intensity: 2 Transfer of Care Handoff Completed per policy Notes Mental Status: alert / awake / arousable and participated in evaluation Patient Amnestic to Procedure: Yes Nausea / Vomiting: adequately controlled Pain: adequately controlled Airway Patency, RR, SpO2: stable & adequate BP & HR: stable & adequate Hydration State: stable & adequate Anesthetic Complications: no major complications apparent and Pt Satisfied with anesthetic care
[2021-01-29] MEDS: CLOPIDOGREL BISULFATE 75 MG TAB PO SCH (09:45)
[2021-01-29] MEDS: FERROUS SULFATE 325 MG TAB PO SCH (09:45)
[2021-01-29] MEDS: MULTIVITAMIN TAB PO SCH (09:45)
[2021-01-29] MEDS: ASPIRIN 81 MG ECTAB PO SCH (09:46)
[2021-01-29] MEDS: DOCUSATE SODIUM 100 MG CAP PO SCH ×2 (09:46→20:34)
[2021-01-29] MEDS: POLYETHYLENE (MIRALAX) 17 GM PACK PO SCH (09:46)
--- NOTE | 2021-01-29 11:13 | Operative Report ---
Post Operative Report Pre & Post Diagnosis Operation Date: 01/17/21 20:30 Pre-Op Diagnosis: INFECTION IN LEFT LEG Post-Op Diagnosis: INFECTION IN LEFT LEG Operation Date: 01/19/21 07:30 Pre-Op Diagnosis: Left thigh abscess Post-Op Diagnosis: Left thigh abscess Operation Date: 01/22/21 07:15 <No data on this case meets the specified criteria> Operation Date: 01/22/21 07:15 Pre-Op Diagnosis: Left thigh abscess Post-Op Diagnosis: Left thigh abscess Operation Date: 01/22/21 07:30 <No data on this case meets the specified criteria> Operation Date: 01/24/21 12:00 Pre-Op Diagnosis: Left thigh abscess Post-Op Diagnosis: Left thigh abscess Operation Date: 01/27/21 12:50 Pre-Op Diagnosis: LEFT THIGH ABSCESS Post-Op Diagnosis: LEFT THIGH ABSCESS Operation Date: 01/29/21 08:45 Pre-Op Diagnosis: Left thigh abscess Post-Op Diagnosis: Left thigh abscess Operation Date: 01/31/21 07:00 <No data on this case meets the specified criteria> Operation Date: 02/03/21 07:00 <No data on this case meets the specified criteria> I identified the patient and participated in the time-out.: Yes Procedure Operation Date: 01/17/21 20:30 Actual Procedures p Incision and Drainage Left Thigh Abscess(Left) - Isael Hammer MD Operation Date: 01/19/21 07:30 Actual Procedures p Incision and Drainage of Left thigh (Left) - Isael Hammer MD Operation Date: 01/22/21 07:15 <No data on this case meets the specified criteria> Operation Date: 01/22/21 07:15 Actual Procedures p Replacing Medium Silver Graulfoam Wound Vac and Cartridge Thigh Left(Left) - Isael Hammer MD Operation Date: 01/22/21 07:30 <No data on this case meets the specified criteria> Operation Date: 01/24/21 12:00 Actual Procedures p Replacing Medium Silver Graulfoam Wound Vac and Cartridge Thigh Left(Left) - Magdy Pemberton MD Operation Date: 01/27/21 12:50 Actual Procedures p Replacing Medium Silver Graulfoam Wound Vac and Cartridge Thigh Left(Left) - Magdy Pemberton MD Operation Date: 01/29/21 08:45 Actual Procedures p Replacing Black Graulfoam Wound Vac and Cartridge Thigh Left(Left) - Isael Hammer MD Operation Date: 01/31/21 07:00 <No data on this case meets the specified criteria> Operation Date: 02/03/21 07:00 <No data on this case meets the specified criteria> Surgeon Isael Hammer MD [place] Pastor Wiggins PA-C; Elias Walker Estimated Blood Loss 1 Findings Consistent with Post-Op Diagnosis Specimens none Anesthesia Type RN Sedation Complications none Disposition Accompanied Patient To Recovery: Yes Disposition: Recovery Room Description of Procedure As per 's note, I assisted in prepping and draping, certain parts of the procedure. I attest to the content of the Intraoperative Record and any orders documented therein. Any exceptions are noted below.
[2021-01-29] MEDS: SENNA 8.6 MG TAB PO SCH (20:34)
[2021-01-29] MEDS: ROSUVASTATIN CALCIUM 10 MG TAB PO SCH (20:34)
[2021-01-30] MEDS: AMPICILLIN/SULBACTAM SOD 3,000 MG in 0.9 % SODIUM CHLORIDE 100 ML IV SCH ×4 (06:02→23:48)
[2021-01-30] MEDS: CLOPIDOGREL BISULFATE 75 MG TAB PO SCH (08:25)
[2021-01-30] MEDS: ASPIRIN 81 MG ECTAB PO SCH (08:25)
[2021-01-30] MEDS: POLYETHYLENE (MIRALAX) 17 GM PACK PO SCH (08:25)
[2021-01-30] MEDS: MULTIVITAMIN TAB PO SCH (08:25)
[2021-01-30] MEDS: FERROUS SULFATE 325 MG TAB PO SCH (08:25)
[2021-01-30] MEDS: DOCUSATE SODIUM 100 MG CAP PO SCH ×2 (08:25→21:22)
--- NOTE | 2021-01-30 11:51 | Orthopedic Progress Note ---
Date of Service January 30, 2021 Assessment & Plan (1) Abscess of left thigh: HD # 13, L thigh infection, s/p multiple I&D and wound Vac placement for large left thigh wound. POD # 1 s/p I&D and wound Vac exchange left thigh yesterday with Dr. Hammer. Continue wound vac left thigh Continue Antibiotics Made NPO p MN tonight - plan for wound vac change in the OR tomorrow morning with Dr. Hammer. Ice and elevation PRN swelling/pain Allowed for full ROM left leg, WBAT. PT/OT Appreciate medicine input, who will continue to monitor chart. Informed Consent signed by Dr. Hammer. May continue ASA/Plavix - no need to stop pre-operatively Dr. Hammer present for today's visit. Admission and Anticipated Discharge Date Admission Date: January 17, 2021 Subjective Patient doing well, no complaints of pain left hip. Tolerating regular diet. Has been out of bed with PT. Physical Exam Physical Exam: Wound vac left thigh functioning. No tenderness with palpation. No distal edema. Tolerates full ROM of left ankle and left knee without pain. Results & Data ([facility]) Vital Signs (Past 12 Hours) Vital Signs Temp Pulse Resp BP BP Pulse Ox 01/30/21 07:00 37.1 C 69 16 125/54 L 97 01/30/21 03:11 36.7 C 65 20 128/53 L 94
--- NOTE | 2021-01-30 16:15 | Anesthesiology Consultation ---
Date of Service January 30, 2021 Assessment & Plan (1) Encounter for pre-operative examination: Chart Review Chart Review: Acceptable Risk for Surgery (necessary repeat surgery) and Patient NOT seen in Pre Admission Testing Consults Requested none History Surgery Operation Date: 01/17/21 20:30 Proposed Procedures p Incision and Drainage Extremity(Left) - Isael Hammer MD Operation Date: 01/19/21 07:30 Proposed Procedures p Incision and Drainage Extremity - Isael Hammer MD Operation Date: 01/22/21 07:15 Proposed Procedures p Replacing Medium Silver Graulfoam Wound Vac & Catridge - Isael Hammer MD Operation Date: 01/22/21 07:15 Proposed Procedures p Replacing Medium Silver Graulfoam Wound Vac and Cartridge Thigh Left - Isael Hammer MD Operation Date: 01/22/21 07:30 Proposed Procedures p Incision and Drainage left thigh, wound vac exchange with silver granufo am(Left) - Isael Hammer MD Operation Date: 01/24/21 12:00 Proposed Procedures p Replacing Medium Silver Graulfoam Wound Vac and Cartridge Thigh Left - Magdy Jessica Pemberton MD Operation Date: 01/27/21 12:50 Proposed Procedures p Replacing Medium Silver Graulfoam Wound Vac and Cartridge Thigh Left - Magdy Jessica Pemberton MD Operation Date: 01/29/21 08:45 Proposed Procedures p Replacing Medium Silver Graulfoam Wound Vac and Cartridge Thigh Left - Isael Hammer MD Operation Date: 01/31/21 07:00 Proposed Procedures p Replacing Medium Silver Graulfoam Wound Vac and Cartridge Thigh Patricia Hammer MD Operation Date: 02/03/21 07:15 Proposed Procedures p Replacing Medium Silver Graulfoam Wound Vac and Cartridge Thigh Patricia Hammer MD Height/Weight Height: 5 ft 9 in Weight: 71.6 kg Allergies Allergy/AdvReac Type Severity Reaction Status Date / Time No Known Drug Allergies Allergy Verified 01/17/21 19:02 onion AdvReac Verified 01/18/21 10:56 Medications Home Medications Medication Instructions Recorded Confirmed Last Taken aspirin 81 mg tablet,delayed 81 mg PO DAILY tab 05/31/19 01/17/21 01/17/21 release coenzyme Q10 200 mg capsule 200 mg PO DAILY cap 05/31/19 01/17/21 01/17/21 multivitamin 1 tab PO DAILY 05/31/19 01/17/21 01/17/21 tadalafil 20 mg tablet 20 mg PO DAILY PRN #18 tab 08/25/19 01/17/21 Unknown clopidogrel 75 mg tablet 75 mg PO DAILY #90 tab 03/11/20 01/17/21 01/17/21 rosuvastatin 10 mg PO HS 01/17/21 01/17/21 01/16/21 Active Medications Generic Name Dose Route Start Last Admin Trade Name Beboq PRN Reason Stop Dose Admin Acetaminophen 1,000 mg 01/17/21 23:12 01/18/21 15:53 Acetaminophen 500 Mg Tab PO 02/16/21 23:11 1,000 mg Q8 PRN Administration Pain or Fever Aspirin 81 mg 01/23/21 09:00 01/30/21 08:25 Aspirin 81 Mg Ectab PO 02/22/21 08:59 81 mg QAM CLARA Administration Clopidogrel Bisulfate 75 mg 01/23/21 09:00 01/30/21 08:25 Clopidogrel Bisulfate 75 Mg Tab PO 02/22/21 08:59 75 mg QAM CLARA Administration Docusate Sodium 100 mg 01/22/21 09:00 01/30/21 08:25 Docusate Sodium 100 Mg Cap PO 02/21/21 08:59 100 mg BID CLARA Administration Ferrous Sulfate 325 mg 01/24/21 09:00 01/30/21 08:25 Ferrous Sulfate 325 Mg Tab PO 02/23/21 08:59 325 mg QAM CLARA Administration Ampicillin Sodium/Sulbactam 108 mls @ 216 mls/hr 01/25/21 12:00 01/30/21 13:15 Sodium 3,000 mg/ Sodium IV 02/01/21 11:59 Infused Chloride Q6 CLARA Infusion Magnesium Citrate 148 ml 01/22/21 13:57 01/23/21 13:29 Magnesium Citrate 296 Ml/Btl PO 02/21/21 13:56 148 ml DAILY PRN Administration Constipation Multivitamins 1 tab 01/19/21 09:00 01/30/21 08:25 Multivitamin Tab PO 02/18/21 08:59 1 tab QAM CLARA Administration Polyethylene Glycol 17 gm 01/20/21 18:45 01/30/21 08:25 Polyethylene (Miralax) 17 Gm Pack PO 02/19/21 18:44 17 gm DAILY CLARA Administration Rosuvastatin Calcium 10 mg 01/18/21 21:00 01/29/21 20:34 Rosuvastatin Calcium 10 Mg Tab PO 02/17/21 20:59 10 mg HS CLARA Administration Sennosides 17.2 mg 01/18/21 21:00 01/29/21 20:34 Senna 8.6 Mg Tab PO 02/17/21 20:59 17.2 mg HS CLARA Administration Tramadol HCl 50 - 100 mg 01/17/21 23:12 01/22/21 15:38 Tramadol Hcl 50 Mg Tablet PO 02/16/21 23:11 50 mg Q4H PRN Administration Pain & Pre PT NPO Date Last Intake of Fluids: 01/28/21 Time Last Intake of Fluids: 17:00 Date Last Intake of Solids: 01/28/21 Time Last Intake of Solids: 17:00 Past Medical History Medical History (Updated 01/30/21 @ 16:14 by Bandar Kimbrough MD) Anemia Bilateral tinnitus CAD (coronary artery disease) Diverticulosis Encounter for pre-operative examination Foot pain Generalized osteoarthritis of multiple sites Hearing decreased Hearing loss Hematoma of left thigh Hematoma of left thigh History of pelvic fracture History of pericarditis Hyperlipidemia Internal hemorrhoids Paroxysmal atrial fibrillation Pericardial tamponade Pre-diabetes Prostate cancer Sensorineural hearing loss (SNHL) of both ears SNHL (sensorineural hearing loss) Tinnitus Past Family History Family History Sister Breast cancer Father Alcoholism Cirrhosis Denies family history of Prostate cancer Myocardial infarction Colorectal cancer Past Surgical History Surgical History H/O cardiac catheterization H/O colonoscopy with polypectomy H/O prostatectomy History of heart artery stent History of pelvic surgery Hx of foot surgery left Hx of tonsillectomy Status post creation of pericardial window Social History Smoking Status: Never smoker Do You Dip or Chew Tobacco: No Hx Alcohol Use: Yes Alcohol type: hard liquor alcohol intake frequency: holidays/special occasions only Hx Substance Use: No substance use type: does not use Physical Exam Vital Signs Last Vital Signs Temp 37 C 01/30/21 15:36 Pulse 86 01/30/21 15:36 Resp 16 01/30/21 15:36 BP 115/57 L 01/30/21 15:36 Pulse Ox 91 01/30/21 15:36 Testing Laboratory Results 01/25/21 05:43 01/29/21 06:28 PT 11.8 Seconds (9.0-12.0) 01/18/21 20:28 INR 1.2 (0.9-1.1) H 01/18/21 20:28 APTT 30.2 Seconds (21.0-31.0) 01/18/21 20:28 Hemoglobin A1c 6.2 % (4.5-5.6) H 01/20/21 08:00 Urine Color Yellow 01/25/21 Unknown Urine Appearance Clear (Clear) 01/25/21 Unknown Urine pH 7.5 (4.5-7.5) 01/25/21 Unknown Ur Specific [place] 1.014 (1.000-1.030) 01/25/21 Unknown Urine Protein Negative (Negative) 01/25/21 Unknown Urine Glucose (UA) Negative (Negative) 01/25/21 Unknown Urine Ketones Negative (Negative) 01/25/21 Unknown Urine Nitrite Negative (Negative) 01/25/21 Unknown Ur Leukocyte Esterase Negative (Negative) 01/25/21 Unknown Blood Type O Positive 01/18/21 16:37 Antibody Screen NEGATIVE 01/18/21 16:37 01/17/21 21:30 Gram Stain - Final Thigh,Left Aerobic and Anaerobic Culture - Final Group B Beta Strep 01/18/21 01:23 Aerobic Blood Culture - Final Blood No growth in Aerobic bottle after 5 days. Anaerobic Blood Culture - Final 01/18/21 01:31 Aerobic Blood Culture - Final Blood No growth in Aerobic bottle after 5 days. Anaerobic Blood Culture - Final 01/17/21 16:45 Gram Stain - Final Thigh,Left Wound Culture - Final Group B Beta Strep Electrocardiogram Date: 01/17/21 Findings: + NSR @ (63) 1st degree AV block with PACs, low voltage QRS Chest X-Ray Date: 01/17/21 IMPRESSION: Cardiomegaly and emphysema with no acute cardiopulmonary abnormality. Echocardiogram Date: 06/21/20 LV size, thickness and function are normal RA is mild to mod dilated
[2021-01-30] MEDS: ROSUVASTATIN CALCIUM 10 MG TAB PO SCH ×2 (21:22→21:43)
[2021-01-30] MEDS: SENNA 8.6 MG TAB PO SCH (21:22)
[2021-01-31] MEDS: AMPICILLIN/SULBACTAM SOD 3,000 MG in 0.9 % SODIUM CHLORIDE 100 ML IV SCH ×4 (05:33→23:32)
[2021-01-31] MEDS ORDERED: ATROPINE SULFATE 0.1 MG/ML 10ML SYR IV PRN (06:36)
[2021-01-31] MEDS ORDERED: ePHEDrine sulfate 50 MG/ML AMP IV PRN (06:36)
[2021-01-31] MEDS ORDERED: ONDANSETRON INJ 2 MG/ML 2 ML VIAL IV PRN (06:36)
[2021-01-31] MEDS ORDERED: fentaNYL citrate 100 MCG/2 ML VIAL IV PRN (06:36)
[2021-01-31] MEDS ORDERED: fentaNYL citrate 100 MCG/2 ML VIAL ONE (06:48)
--- NOTE | 2021-01-31 06:54 | History & Physical Bridge Note ---
Date of Service January 31, 2021 History & Physical Bridge Note I have examined the patient, reviewed the History & Physical and in the interval since the performance of the History & Physical I have noted the following changes of clinical significance: no changes noted
[2021-01-31] MEDS ORDERED: ONDANSETRON INJ 2 MG/ML 2 ML VIAL ONE (07:09)
[2021-01-31] MEDS ORDERED: PROPOFOL IV EMULSION 10 MG/ML 20 ML VIAL IV ONE (07:09)
[2021-01-31] MEDS ORDERED: LIDOCAINE HCL 2% 2 ML VIAL/AMP(20MG/ML) INFIL ONE (07:09)
--- NOTE | 2021-01-31 07:40 | Operative Report ---
Post Operative Report Pre & Post Diagnosis Operation Date: 01/17/21 20:30 Pre-Op Diagnosis: INFECTION IN LEFT LEG Post-Op Diagnosis: INFECTION IN LEFT LEG Operation Date: 01/19/21 07:30 Pre-Op Diagnosis: Left thigh abscess Post-Op Diagnosis: Left thigh abscess Operation Date: 01/22/21 07:15 <No data on this case meets the specified criteria> Operation Date: 01/22/21 07:15 Pre-Op Diagnosis: Left thigh abscess Post-Op Diagnosis: Left thigh abscess Operation Date: 01/22/21 07:30 <No data on this case meets the specified criteria> Operation Date: 01/24/21 12:00 Pre-Op Diagnosis: Left thigh abscess Post-Op Diagnosis: Left thigh abscess Operation Date: 01/27/21 12:50 Pre-Op Diagnosis: LEFT THIGH ABSCESS Post-Op Diagnosis: LEFT THIGH ABSCESS Operation Date: 01/29/21 08:45 Pre-Op Diagnosis: Left thigh abscess Post-Op Diagnosis: Left thigh abscess Operation Date: 01/31/21 07:00 Pre-Op Diagnosis: Left Thigh Abscess Post-Op Diagnosis: Left Thigh Abscess Operation Date: 02/03/21 07:15 <No data on this case meets the specified criteria> I identified the patient and participated in the time-out.: Yes Procedure Operation Date: 01/17/21 20:30 Actual Procedures p Incision and Drainage Left Thigh Abscess(Left) - Isael Hammer MD Operation Date: 01/19/21 07:30 Actual Procedures p Incision and Drainage of Left thigh (Left) - Isael Hammer MD Operation Date: 01/22/21 07:15 <No data on this case meets the specified criteria> Operation Date: 01/22/21 07:15 Actual Procedures p Replacing Medium Silver Graulfoam Wound Vac and Cartridge Thigh Left(Left) - Isael Hammer MD Operation Date: 01/22/21 07:30 <No data on this case meets the specified criteria> Operation Date: 01/24/21 12:00 Actual Procedures p Replacing Medium Silver Graulfoam Wound Vac and Cartridge Thigh Left(Left) - Magdy Pemberton MD Operation Date: 01/27/21 12:50 Actual Procedures p Replacing Medium Silver Graulfoam Wound Vac and Cartridge Thigh Left(Left) - Magdy Pemberton MD Operation Date: 01/29/21 08:45 Actual Procedures p Replacing Black Graulfoam Wound Vac and Cartridge Thigh Left(Left) - Isael Hammer MD Operation Date: 01/31/21 07:00 Actual Procedures p Replacing Medium Silver Graulfoam Wound Vac and Cartridge Thigh Left(Left) - Isael Hammer MD Operation Date: 02/03/21 07:15 <No data on this case meets the specified criteria> Surgeon Isael Hammer MD Certified Professional Midwife Pastor Wiggins PA-C; Elias Walker Estimated Blood Loss 0 Findings Consistent with Post-Op Diagnosis Specimens None Drains Wound VAC Anesthesia Type MAC Complications none Disposition Accompanied Patient To Recovery: No Disposition: Recovery Room Indications Patient presents for routine change of his wound VAC under anesthesia due to the size of the wound. Description of Procedure Informed consent obtained. Patient identified. He identified the operative site as the left thigh. Preoperative surgical timeout performed. The patient is on preoperative antibiotics and prophylactic antibiotics not indicated. DVT prophylaxis is not indicated. The patient is very mobile. He was positioned supine on the OR table. The prior wound VAC was removed. There is excellent granulation tissue throughout the healing bed on the anterior thigh which is getting smaller. There is undermining maximum of about 4 cm proximal and lateral. A new silver granular foam pad is constructed slightly smaller than the existing wound bed. Sponges applied and the VAC dressing is constructed. Adaptic over the small sinus area medially. There is once a small skin blister towards the groin area which was left out of the dressing otherwise the skin was in good condition and without maceration. Adaptic was not utilized this time. The VAC was deployed without difficulty. Patient awakened from anesthesia taken to recovery in stable condition. There were no specimens or complications no counts or blood loss. Plan is to change on the floor Wednesday. This will be done in conjunction with the wound care nurse who was able to assist us with the procedure here today I attest to the content of the Intraoperative Record and any orders documented therein. Any exceptions are noted below.
--- NOTE | 2021-01-31 07:59 | Anesthesiology Progress Note ---
Date of Service January 31, 2021 Anesthesia Post Procedure Vital Signs Vital Signs: Temp Pulse Pulse Resp BP BP Pulse Ox 01/31/21 07:55 97.7 F 54 L 18 109/59 L 99 01/31/21 07:45 53 L 16 107/58 L 100 01/31/21 07:36 97.5 F L 50 L 16 115/61 100 01/31/21 06:26 98.2 F 56 L 18 112/56 L 95 01/31/21 05:35 98.1 F 59 L 14 114/64 96 01/31/21 00:11 98.2 F 66 16 134/74 96 01/30/21 15:36 98.6 F 86 16 115/57 L 91 Pain Intensity Left Thigh: Pain Intensity: 2 Transfer of Care Handoff Completed per policy Notes Mental Status: alert / awake / arousable and participated in evaluation Patient Amnestic to Procedure: Yes Nausea / Vomiting: adequately controlled Pain: adequately controlled Airway Patency, RR, SpO2: stable & adequate BP & HR: stable & adequate Hydration State: stable & adequate Anesthetic Complications: no major complications apparent and Pt Satisfied with anesthetic care
[2021-01-31 08:53] LABS: Basophils # (auto) 0.02 K/uL (0-0.2); Basophils % (auto) 0.3 %; Eosinophils # (auto) 0.18 K/uL (0-0.5); Eosinophils % (auto) 2.4 %; Hematocrit (blood only) 29.5 % (42-52); Hemoglobin 9.6 g/dL (14.0-18.0); Immature Granulocytes # (auto) 0.03 K/uL (0.00-0.02); Immature Granulocytes % (auto) 0.4 %; Lymphocytes # (auto) 1.41 K/uL (1.2-3.4); Lymphocytes % (auto) 18.7 %; Mean Corpuscular Hemoglobin 28.7 pg (25-34); Mean Corpuscular Hgb Conc 32.5 g/dL (32-36); Mean Corpuscular Volume 88.1 fL (80-100); Mean Platelet Volume 8.5 fL (7.4-10.4); Monocytes # (auto) 0.43 K/uL (0.11-0.59); Monocytes % (auto) 5.7 %; Neutrophils # (auto) 5.49 K/uL (1.4-6.5); Neutrophils % (auto) 72.5 %; Platelet Count 338 K/uL (130-400); RDW Coefficient of Variation 16.1 % (11.5-14.5); RDW Standard Deviation 50.8 fL (36.4-46.3); Red Blood Count 3.35 M/uL (4.7-6.1); White Blood Count 7.56 K/uL (4.8-10.8)
[2021-01-31] MEDS: CLOPIDOGREL BISULFATE 75 MG TAB PO SCH (09:09)
[2021-01-31] MEDS: ASPIRIN 81 MG ECTAB PO SCH (09:09)
[2021-01-31] MEDS: FERROUS SULFATE 325 MG TAB PO SCH (09:09)
[2021-01-31] MEDS: MULTIVITAMIN TAB PO SCH (09:09)
[2021-01-31] MEDS: POLYETHYLENE (MIRALAX) 17 GM PACK PO SCH (09:09)
[2021-01-31] MEDS: DOCUSATE SODIUM 100 MG CAP PO SCH ×2 (09:09→19:56)
[2021-01-31] MEDS: ROSUVASTATIN CALCIUM 10 MG TAB PO SCH (19:56)
[2021-01-31] MEDS: SENNA 8.6 MG TAB PO SCH (19:56)
[2021-02-01] MEDS: AMPICILLIN/SULBACTAM SOD 3,000 MG in 0.9 % SODIUM CHLORIDE 100 ML IV SCH ×4 (05:11→23:19)
[2021-02-01] MEDS: ASPIRIN 81 MG ECTAB PO SCH (09:09)
[2021-02-01] MEDS: CLOPIDOGREL BISULFATE 75 MG TAB PO SCH (09:10)
[2021-02-01] MEDS: DOCUSATE SODIUM 100 MG CAP PO SCH ×2 (09:10→19:53)
[2021-02-01] MEDS: FERROUS SULFATE 325 MG TAB PO SCH (09:10)
[2021-02-01] MEDS: POLYETHYLENE (MIRALAX) 17 GM PACK PO SCH (09:11)
[2021-02-01] MEDS: MULTIVITAMIN TAB PO SCH (09:11)
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
[2021-02-01] MEDS: SENNA 8.6 MG TAB PO SCH (19:53)
[2021-02-01] MEDS: ROSUVASTATIN CALCIUM 10 MG TAB PO SCH (19:53)
[2021-02-02] MEDS: AMPICILLIN/SULBACTAM SOD 3,000 MG in 0.9 % SODIUM CHLORIDE 100 ML IV SCH ×3 (05:22→17:37)
[2021-02-02] MEDS: ASPIRIN 81 MG ECTAB PO SCH (08:16)
[2021-02-02] MEDS: FERROUS SULFATE 325 MG TAB PO SCH (08:16)
[2021-02-02] MEDS: CLOPIDOGREL BISULFATE 75 MG TAB PO SCH (08:16)
[2021-02-02] MEDS: POLYETHYLENE (MIRALAX) 17 GM PACK PO SCH (08:16)
[2021-02-02] MEDS: DOCUSATE SODIUM 100 MG CAP PO SCH ×2 (08:16→19:22)
[2021-02-02] MEDS: MULTIVITAMIN TAB PO SCH (08:16)
--- NOTE | 2021-02-02 08:30 | Orthopedic Progress Note ---
Date of Service February 02, 2021 Assessment & Plan (1) Abscess of left thigh: HD # 14, L thigh infection, s/p multiple I&D and wound Vac placement for large left thigh wound. POD # 2 s/p I&D and wound Vac exchange left thigh yesterday with Dr. Hammer. Continue wound vac left thigh Continue Antibiotics Plan for wound vac change with Dr. Hammer at the bedside tomorrow. Ice and elevation PRN swelling/pain Allowed for full ROM left leg, WBAT. PT/OT Appreciate medicine input, who will continue to monitor chart. Continue ASA/Plavix - no need to stop pre-operatively Admission and Anticipated Discharge Date Admission Date: January 17, 2021 Subjective Patient is seen in his room this morning. He has no complaints. Pain well controlled. Denies fevers/chills/cp/sob. Doing his exercises in bed. Physical Exam Physical Exam: L leg: wound vac functioning appropriately. No leaks. Exposed skin around vac shows minimal swelling, no redness. Does a straight leg raise and actively moves knee through ROM 0-90 degrees easily. NVI. Results & Data ([facility]) Vital Signs (Past 12 Hours) Vital Signs Temp Pulse Pulse Resp BP BP Pulse Ox 02/02/21 08:22 36.6 C 57 L 16 142/68 H 95 02/01/21 22:07 36.6 C 61 18 145/46 H 97
[2021-02-02] MEDS: SENNA 8.6 MG TAB PO SCH (19:22)
[2021-02-02] MEDS: ROSUVASTATIN CALCIUM 10 MG TAB PO SCH (19:22)
[2021-02-03] MEDS: AMPICILLIN/SULBACTAM SOD 3,000 MG in 0.9 % SODIUM CHLORIDE 100 ML IV SCH ×5 (00:20→23:09)
[2021-02-03] MEDS: ASPIRIN 81 MG ECTAB PO SCH (08:33)
[2021-02-03] MEDS: FERROUS SULFATE 325 MG TAB PO SCH (08:33)
[2021-02-03] MEDS: DOCUSATE SODIUM 100 MG CAP PO SCH ×2 (08:33→19:12)
[2021-02-03] MEDS: MULTIVITAMIN TAB PO SCH (08:33)
[2021-02-03] MEDS: CLOPIDOGREL BISULFATE 75 MG TAB PO SCH (08:33)
[2021-02-03] MEDS: POLYETHYLENE (MIRALAX) 17 GM PACK PO SCH (08:34)
--- NOTE | 2021-02-03 08:40 | Orthopedic Progress Note ---
Date of Service February 03, 2021 Assessment & Plan (1) Mass of left thigh: (2) Abscess of left thigh: He has been afebrile. His vital signs are stable. His sed rate is in the low 30s slightly higher than it was but his C-reactive protein is down to 2. We will see how he does with the wound VAC change at the bedside today and then make further arrangements. He will continue on IV antibiotics until discharge as per infectious diseases recommendation. His activity level such that he does not require chemoprophylaxis for blood clots. Present on Admission?: Yes Admission and Anticipated Discharge Date Admission Date: January 17, 2021 Subjective No problems. Doing leg exercises. Ambulating. We talked about the a wound VAC change at bedside today. If this is tolerable and successful then it opens the door for him to do this at home or as an outpatient. Physical Exam Physical Exam: Wound VAC in place functioning properly. He can lift his leg and bend his knee. Results & Data ([facility]) Vital Signs (Past 12 Hours) Vital Signs Temp Pulse Pulse Resp BP BP Pulse Ox 02/03/21 07:45 36.5 C 54 L 19 122/66 96 02/03/21 07:25 36.5 C 56 L 17 118/63 95 02/02/21 22:29 36.8 C 64 16 114/64 97
[2021-02-03] MEDS: traMADol HCL 50 MG TABLET PO PRN (09:35)
[2021-02-03] MEDS: SENNA 8.6 MG TAB PO SCH (19:13)
[2021-02-03] MEDS: ROSUVASTATIN CALCIUM 10 MG TAB PO SCH (19:14)
[2021-02-04] MEDS: AMPICILLIN/SULBACTAM SOD 3,000 MG in 0.9 % SODIUM CHLORIDE 100 ML IV SCH ×2 (05:24→11:20)
[2021-02-04] MEDS: POLYETHYLENE (MIRALAX) 17 GM PACK PO SCH (08:46)
[2021-02-04] MEDS: FERROUS SULFATE 325 MG TAB PO SCH (08:47)
[2021-02-04] MEDS: DOCUSATE SODIUM 100 MG CAP PO SCH (08:47)
[2021-02-04] MEDS: MULTIVITAMIN TAB PO SCH (08:47)
[2021-02-04] MEDS: ASPIRIN 81 MG ECTAB PO SCH (08:47)
[2021-02-04] MEDS: CLOPIDOGREL BISULFATE 75 MG TAB PO SCH (08:47)
--- NOTE | 2021-02-04 09:39 | Orthopedic Progress Note ---
Date of Service February 04, 2021 Assessment & Plan (1) Mass of left thigh: (2) Abscess of left thigh: He has been afebrile. His vital signs are stable. Patient did well with the bedside wound VAC exchange yesterday. States that he has discussed his options with the pillowcase folder which include home health coming to his home to change his wound vacs on Wednesdays and Fridays or for him to go to the wound care center to have this done. He is very anxious about being discharged soon as possible because he has been in the hospital Since January 16. Admission and Anticipated Discharge Date Admission Date: January 17, 2021 Subjective This 80-year-old male seen today After undergoing left thigh abscess irrigation debridement with multiple Replacements of Medium Silver Graulfoam Wound Vac and Cartridge Thigh. Patient states is been admitted in the hospital since d January 16. Patient states that he is ready to go home and states that he spoke with the pillowcase folder of her about home health coming into his home to change his wound VAC on Wednesdays and Fridays. Patient states that he had his wound VAC changed at bedside by the wound care nurse yesterday without difficulty or pain. He states that he would Prefer to have this done on an outpatient basis. Patient states he has been able to ambulate around the room and down the hallways without difficulty. States he has been working on leg range of motion. Currently he denies pain, fever, chills, sweats, lethargy, chest pain, shortness of breath or numbness or tingling in his left lower extr emity. Review of Systems Review of Systems: All systems reviewed & are unremarkable except as noted in Subjective Physical Exam Physical Exam: Left thigh: Wound VAC noted over the anterior surface of the left mid thigh is clean dry and intact. There is approximately 50 mL of clear blood-tinged fluid in the wound VAC machine canister. He is able to actively perform a straight leg raise. He can actively dorsi and plantarflex his foot. He can flex his knee from 0 to 90 degrees without difficulty. He Experiences no tenderness to palpation over the anterior surface of the thigh circumferentially around the wound VAC pad. Otherwise, he is neurovascular intact left lower extremity. Results & Data ([facility]) Vital Signs (Past 12 Hours) Vital Signs Temp Pulse Resp BP BP Pulse Ox 02/04/21 07:15 36.5 C 60 16 130/59 L 96 05/03/21 22:39 36.5 C 48 L 18 119/67 94
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
== END 2021-02-04 17:17 | disposition home health service (06) | DRG 603 ==
LOC: ED 15:34 → OR 20:15 → 3N 23:48 → 2S 01-18 16:51 → 3N 01-19 18:22